=== PATIENT | male | born 1940 | race Caucasian/White ===

== ENCOUNTER → 2024-02-13 09:21 | Outpatient (REF) | payer MEDICARE, SELFPAY ==
--- NOTE | 2024-02-13 10:10 | CARDSERVLU ---
Echocardiogram with Lumason completed after protocol screening completed. Allergies verified.
Patent IV site: _new start 20 P 1st attempt LAC____
IV site flushed with 0.9% NaCl pre and post administration.
Diluted bolus method utilized to enhance visualization of ventricular guevara.
Total volume given: __4.5__ mL
Patient tolerated all procedures well without complications.
site removed at completion of testing.
== END ==
LOC: RCS 09:21
PROVIDERS: ATTENDING PHYSICIAN Internal Medicine Cardiovascular Disease; FAMILY PHYSICIAN Nurse Practitioner Adult Health
DX: I50.22 Chronic systolic (congestive) heart failure (principal); Z95.810 Presence of automatic (implantable) cardiac defibrillator
CPT/HCPCS: 93306; Q9950

== ENCOUNTER 2024-06-03 12:34 | Emergency (ER) | payer MEDICARE, SELFPAY ==
[2024-06-03 12:36] VITALS: BP 107/65
[2024-06-03 13:13] LABS: % Basophils 0.4 % (0-2); % Eosinophils 0.1 % (0-6); % Immature Granulocytes 0.5 % (0-0.5); % Lymphocytes 10.7 % (20.5-51.1); % Monocytes 7.3 % (1.7-9.3); Absolute Basophils 0.1 10^3/uL (0-0.2); Absolute Immature Granulocytes 0.1 10^3/uL (0-0.05); Absolute Lymphocytes 1.5 10^3/uL (1.2-3.4); Absolute Neutrophils 11.1 10^3/uL (1.4-6.5); Hematocrit 40.2 % (39.0-52.0); Hemoglobin 14.4 g/dL (13.0-18.0); Mean Corp Hgb Conc. 35.8 g/dL (33.0-37.0); Mean Corpuscular Hgb 32.7 pg (27.0-31.0); Mean Corpuscular Volume 91.4 fL (80.0-94.0); Mean Platelet Volume 9.7 fL (7.4-10.4); Nucleated Red Blood Cells % 0 % (-); Platelet Count 241 10^3/uL (130-400); Red Cell Dist. Width 13.8 % (11.5-14.5); White Blood Cell Count 13.7 10^3/uL (4.8-10.8)
[2024-06-03 13:24] LABS: ALT (SGPT) 42 U/L (0-50); AST (SGOT) 114 U/L (17-59); Albumin 4.7 g/dl (3.5-5.0); Alkaline Phosphatase 62 U/L (38-126); Blood Urea Nitrogen 31 mg/dl (9-20); Calcium 9.9 mg/dl (8.4-10.2); Carbon Dioxide 20 mmol/L (22-30); Chloride 104 mmol/L (98-107); Glucose 197 mg/dl (70-99); Potassium 4.3 mmol/L (3.5-5.1); Sodium 138 mmol/L (135-145); Total Bilirubin 1.2 mg/dl (0.2-1.3); Total Protein 7.4 g/dl (6.3-8.2); eGFR > 60.00
--- NOTE | 2024-06-03 14:29 | ED.GENMED ---
History of Present Illness
General
Chief Complaint: Fall
Time Seen by Provider: 06/03/24 14:10
History of Present Illness
History of Present Illness:
83 yo male presents to the Emergency Department with his daughters for evaluation of gait instability ongoing for the past several weeks, with multiple falls in the past 2 days. Yesterday was down for >8 hours before family was able to help him.
Lives alone. Denies complaints otherwise.
Past History
Past History
ED Past Medical History: CAD, Cancer (Skin CA), CHF, HTN, Hypercholesterolemia, NIDDM and Other (LBBB)
ED Past Surgical History: Appendectomy, Cardiac (BIVICD, STENT) and Other (Hernia repair, Catarats)
Social History
Tobacco: Non-smoker
Alcohol: Occasional
Personal:
Living: alone
Review of Systems
Review of Systems
Allergies reviewed?: Yes
All Other Systems: ROS reviewed and negative except as documented in HPI and ROS
Phy Exam
Physical Exam
Physical Exam:
GEN: Well appearing, NAD, WDWN
HEENT: Oral mucosa moist, no scleral icterus, no nasal congestion
Cardiac: Regular rate
Lung: No respiratory distress, no tachypnea
MSK: No gross deformity or injuries
Skin: Good color, no pallor or jaundice, pressure injuries to L knee and R medial knee
Neuro: AO x3; CN II-XII grossly intact. BUE strength 5/5 in all valencia, sensation intact and symmetric. BLE strength 5/5 in all valencia, sensation intact and symmetric. Ataxia to LUE and LLE. Abnormal gait with rigid LLE
Psych: Calm, cooperative
Course
Orders/Labs/Results
Orders:
Orders
06/03/24 12:40
Urinalysis Reflex To Culture Urgent
Date Specimen was Collected: 06/03/24
Time Specimen was Collected: 12:40
06/03/24 12:46
EKG [Electrocardiogram (*1)] Urgent
Reason for Study: Other
Other Reason for Exam: Frequent Falls, Gait dysfunction
EKG- Treatment ONCE
06/03/24 12:52
Complete Blood Count/With Diff Urgent
Comprehensive Metabolic Panel Urgent
Creatine Phosphokinase Urgent
Comment: ADD ON
06/03/24 14:18
Add On- LAB Urgent
Tests Added?: CPK
06/03/24 14:29
CT Head W/o Iv Contrast Urgent
Comment:
Reason For Exam: gait instability/L sided weakness
06/03/24 14:54
0.9% Sodium Chloride 1000 ml [Nss] 1,000 ml IV BOLUS
06/03/24 15:50
Acetaminophen 1000MG/100Ml [Ofirmev] 1,000 mg in 100 ml IV ONCE
Acetaminophen IV Indication:: ED Narcotic Naive Pt-ONCE
Dexamethasone Sod Phosphate [Decadron] 4 mg IV NOW STA
Levetiracetam Injectable [Keppra] 500 mg IV NOW STA
06/03/24 16:53
CR Foot - Left Min 3 Views Urgent
Comment:
Reason For Exam: fall
CR Shoulder, Trauma - Left Urgent
Reason For Exam: fall
Abnormal Lab Results
06/03/24
12:52
WBC 13.7 H 10^3/uL
(4.8-10.8)
RBC 4.40 L 10^6/uL
(4.70-6.10)
MCH 32.7 H pg
(27.0-31.0)
Abs Immat Gran (auto) 0.1 H 10^3/uL
(0-0.05)
Absolute Neuts (auto) 11.1 H 10^3/uL
(1.4-6.5)
Absolute Monos (auto) 1.0 H 10^3/uL
(0.1-0.6)
Neutrophils % 81.0 H %
(42.2-75.2)
Lymphocytes % 10.7 L %
(20.5-51.1)
Carbon Dioxide 20 L mmol/L
(22-30)
BUN 31 H mg/dl
(9-20)
Glucose 197 H mg/dl
(70-99)
AST 114 H U/L
(17-59)
Creatine Kinase 4078 H U/L
(55-170)
06/03/24 12:52
06/03/24 12:52
Vital Signs
Initial and Last Documented VS:
Initial Vital Signs
Temp Pulse Resp BP Pulse Ox
97.5 F 86 18 107/65 91
06/03/24 12:36 06/03/24 12:36 06/03/24 12:36 06/03/24 12:36 06/03/24 12:36
Last Documented Vital Signs
Temp Pulse Resp BP Pulse Ox
97.5 F 85 19 112/59 97
06/03/24 12:36 06/03/24 17:29 06/03/24 17:29 06/03/24 17:30 06/03/24 16:00
MDM/Problems Addressed
MDM/Problems Addressed:
Imaging obtained due to the patient's abnormal neurologic exam finding evidence for a likely hemorrhagic brain mass. I discussed the case with neurosurgery at the [facility] who will accept the patient as a transfer to the
neurointensive care unit. Given IV steroids and antiepileptic drugs, BP remained quite stable in the ED.
*Critical Care Note
Total Time (30-74mins, 75-104mins- exclusive of procedures): 60 minutes
comment:
Critical care time: 60 minutes
Critical care time was exclusive of: Separately billable procedures, treating other patients, and teaching time
Critical care was necessary to treat or prevent imminent or life-threatening deterioration of the following conditions: Hemorrhagic brain mass
Critical care time spent personally by me on the following activities:
[x] Review of old charts
[x] Obtaining history from patient or surrogate
[x] Ordering and review of the laboratory studies
[x] Ordering and review of radiographic studies
[x] Ordering and performing treatments and interventions
[x] Patient patient's response to treatment
[x] Development of treatment plan with patient or surrogate
ED Attending Note
-
Portions of this chart may have been created with voice recognition software.� Occasional wrong word or��sound alike� substitutions may have occurred due to the inherent limitations of voice recognition software.
Discharge Plan
Departure
Patient Disposition: Acute Care Hospital
Date of Disposition: 06/03/24
Time of Disposition: 15:37
Discharge Problem:
Brain bleed
Prescriptions:
No Action
losartan 50 MG tablet
100 mg PO DAILY
spironolactone 12.5 MG tablet
12.5 mg PO DAILY
glimepiride 2 MG tablet
4 mg PO BID
omeprazole magnesium [Prilosec OTC] 20 MG tablet,delayed release (DR/EC)
20 mg PO DAILY
atorvastatin 40 MG tablet
80 mg PO HS
metformin 1,000 MG tablet
1,000 mg PO BID
Altai Balance
1 tab PO DAILY
Artho-Hmp
1 tab PO DAILY
carvedilol 12.5 MG tablet
12.5 mg PO BID
amlodipine 5 MG tablet
7.5 mg PO DAILY
Primatene Asthma 1 TAB tablet
1 tab PO PRN PRN (Reason: asthma)
fluticasone propionate 1 SPRAY spray,suspension
1 spray intranasal DAILY
chromium picolinate 400 MCG tablet
800 mcg PO DAILY
turmeric root extract 500 MG capsule
1,000 mg PO DAILY
cinnamon bark-chromium picolin 1 EACH capsule
1 - 2 ea PO BID
Trulicity 0.75 MG/0.5 ML pen injector
0.5 mg SQ WEEKLY
Balance Of Nature Fruit Veggie
3 tab PO DAILY
Berberine Gluco
1 - 2 tab PO BID
Blood Boost Formula
1 tab PO DAILY
Glucose Stabili-T
1 tab PO TID
Wayne Q Plus
2 tablets PO QPM
Referrals:
Lux Elliott CRNP [Family Provider] -
Hospital Transfer
Other hospital: [facility]
I certify that the patient requires transfer: Yes
Discussed case with accepting physician: Sana
Reason for transfer: higher level of care
Interventions
Interventions:
*Risk Screen - Suicide Last Done: 06/03/24 12:36
*General Assessment Last Done: 06/03/24 12:36
*Neglect/Abuse Screening Last Done: 06/03/24 12:36
ED- Fall Risk Assessment Last Done: 06/03/24 14:16
*ED COVID-19 Vaccine History Last Done: 06/03/24 17:44
*Nursing Disposition Last Done: 06/03/24 17:44
ED- Neurological Assessment Last Done: 06/03/24 16:11
ED-Skin Assessment Last Done: 06/03/24 14:16
Discharge Date and Time
Discharge Date/Time: 06/03/24 17:45
Print Language: DANISH
[2024-06-03 14:43] LABS: Creatine Phosphokinase 4078 U/L (55-170)
[2024-06-03] MEDS: NSS 1000 IV (15:37)
[2024-06-03 15:38] VITALS: BMI 25.9
[2024-06-03] MEDS: DECADRON 4 MG IV (15:57)
[2024-06-03] MEDS: OFIRMEV 100 IV (15:58)
[2024-06-03] MEDS: KEPPRA 500 MG IV (15:58)
[2024-06-03 16:00] VITALS: BP 132/86
[2024-06-03 16:36] VITALS: BP 125/71
[2024-06-03 17:00] VITALS: BP 112/76
[2024-06-03 17:30] VITALS: BP 112/59
== END 2024-06-03 17:45 | disposition short-term general hospital (02) ==
LOC: EMR 12:34
PROVIDERS: Emergency Medicine; EMERGENCY PHYSICIAN Emergency Medicine; FAMILY PHYSICIAN Nurse Practitioner Adult Health
DX: S06.300A Unspecified focal traumatic brain injury without loss of consciousness, initial encounter (principal); G93.89 Other specified disorders of brain; R26.89 Other abnormalities of gait and mobility; R53.1 Weakness; W19.XXXA Unspecified fall, initial encounter; I11.0 Hypertensive heart disease with heart failure; I50.9 Heart failure, unspecified; I25.10 Atherosclerotic heart disease of native coronary artery without angina pectoris; E11.9 Type 2 diabetes mellitus without complications; I44.7 Left bundle-branch block, unspecified; E78.00 Pure hypercholesterolemia, unspecified; Z85.828 Personal history of other malignant neoplasm of skin; R29.6 Repeated falls; Z95.5 Presence of coronary angioplasty implant and graft; Z95.810 Presence of automatic (implantable) cardiac defibrillator; Z88.8 Allergy status to other drugs, medicaments and biological substances
CPT/HCPCS: 99291; 96374; 96375 ×2; 96361; 70450; 73030; 73630; 80053; 82550; 85025; 93005

== ENCOUNTER → 2024-07-17 08:36 | Outpatient (REF) | payer OTHER, SELFPAY | LOC: RAD 08:36 | PROVIDERS: ATTENDING PHYSICIAN Nurse Practitioner Adult Health | DX: I63.9 Cerebral infarction, unspecified (principal) | CPT/HCPCS: 93880 ==

== ENCOUNTER 2024-08-01 11:06 | Outpatient (RCR) | payer OTHER, SELFPAY | END 2024-08-01 23:59 | disposition home or self-care (01) | LOC: RST 11:06 | PROVIDERS: ATTENDING PHYSICIAN Physical Medicine & Rehabilitation | DX: C71.0 Malignant neoplasm of cerebrum, except lobes and ventricles (principal); Z73.6 Limitation of activities due to disability; R26.89 Other abnormalities of gait and mobility; R26.81 Unsteadiness on feet; M62.81 Muscle weakness (generalized); M25.511 Pain in right shoulder; Z98.890 Other specified postprocedural states; R29.6 Repeated falls | CPT/HCPCS: 96125; 97110; 97112; 97129; 97130; 97163; 97167; 97530; 97535 ==

== ENCOUNTER → 2024-08-13 11:14 | Outpatient (REF) | payer OTHER, SELFPAY | LOC: RAD 11:14 | PROVIDERS: ATTENDING PHYSICIAN Specialist; FAMILY PHYSICIAN Nurse Practitioner Adult Health | DX: Z85.9 Personal history of malignant neoplasm, unspecified (principal); N28.1 Cyst of kidney, acquired | CPT/HCPCS: 74178; Q9967 ==

== ENCOUNTER 2024-08-14 09:44 | Outpatient (RCR) | payer OTHER, SELFPAY | END 2024-08-14 23:59 | disposition home or self-care (01) | LOC: RST 09:44 | PROVIDERS: ATTENDING PHYSICIAN Physical Medicine & Rehabilitation | DX: C71.0 Malignant neoplasm of cerebrum, except lobes and ventricles (principal); Z73.6 Limitation of activities due to disability; R26.89 Other abnormalities of gait and mobility; R26.81 Unsteadiness on feet; M62.81 Muscle weakness (generalized); M25.511 Pain in right shoulder; R41.844 Frontal lobe and executive function deficit; R41.840 Attention and concentration deficit; R41.841 Cognitive communication deficit; Z98.890 Other specified postprocedural states; R29.6 Repeated falls | CPT/HCPCS: 97110; 97112; 97116; 97129; 97130; 97530; 97535 ==

== ENCOUNTER 2024-08-18 11:40 | Emergency (ER) | payer OTHER, SELFPAY ==
[2024-08-18] VITALS (10 sets, daily range): BP systolic 126–148; BP diastolic 74–99
--- NOTE | 2024-08-18 11:43 | ED.GENMED ---
History of Present Illness
General
Chief Complaint: Change in Mental Status
Time Seen by Provider: 08/18/24 11:43
History of Present Illness
History of Present Illness:
TIME OF INITIAL ENCOUNTER: 11:45 AM
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 He was seen here with an intracranial hemorrhage from a metastatic lesion this past May and was transferred to [place] where he had brain surgery. This
week he had been doing fairly well but yesterday daughter noticed a little bit of a change. Today his mental status has dramatically worsened. He is taking much longer to answer any questions. I spoke to the ex- at bedside who had been
speaking to the neurosurgeon at [place].
EXAM:
GENERAL: The patient is somewhat ill in appearance
HEENT: Moist oral mucosa
CARDIOVASCULAR: No murmurs, normal heart rate, regular rhythm, No chest wall tenderness
PULMONARY: No respiratory distress, breath sounds are clear and equal
ABDOMEN: Soft with no peritoneal signs, no tenderness
NEUROLOGIC: The patient has trouble following simple commands, he could not name the month, he cannot tell me his age, his strength is decreased equally in all extremities
PSYCHIATRIC: Limited insight and judgement
EXTREMITIES: Nontender, no edema, moves all extremities equally
SKIN: No rash, no lesions
NUMBER AND COMPLEXITY OF PROBLEMS ADDRESSED AT THE ENCOUNTER
� Chronic conditions affecting care: Cardiomyopathy/CHF, CAD, high blood pressure, hyperlipidemia, IDDM
� Acute Exacerbation and/or Progression of Chronic Illness: This is an acute problem
� Differential Diagnosis includes: Hemorrhagic metastatic disease, subdural hematoma, infectious etiology, seizure
AMOUNT AND/OR COMPLEXITY OF DATA TO BE REVIEWED AND ANALYZED
� I performed an independent evaluation of and my interpretation is:
EKG: V paced 100
CT: Right parietal mass slightly larger than prior, there are mixed bilateral density subdural hematomas which appear new in comparison to CT from last May
X-rays:
Laboratory Studies: White count 20.7, hemoglobin 11.6, sodium normal, BUN 28, creatinine 0.8, calcium 10.4, glucose 101
Other:
� Review of other/old records: I reviewed records. The patient was seen here 06/03/2024 and at that time had been having unstable gait and had been falling. The patient was found to have a hemorrhagic brain mass that day and
was transferred to [place]. Ex- showed me on her phone that an MRI from yesterday showed new dural based enhancing metastatic lesions with local mass effect. There had been decreased in size from 10 mm to 5 mm of the right-sided subdural hematoma.
� Clinical information was obtained by an independent historian: Ex- at bedside
� Prescriptions/Medications Considered but not given:
� Further testing considered but not performed:
RISK OF COMPLICATIONS AND/OR MORBIDITY OR MORTALITY OF PATIENT MANAGEMENT
� Social determinants of health affecting care: Lives at home
� Discussion with other providers: I spoke to Dr. Del Real neurosurgeon at [place] who accepts to his service to [facility].
� Escalation of care including admission/observation vs risk of discharge considered: The patient was seen upon arrival and sent for CT nearly immediately. The patient was given Decadron and Keppra. While in the ED, the patient
had a brief run of wide-complex tachycardia. The patient does have an underlying pacemaker and does have a left bundle branch block history. This wide-complex tachycardia may be an underlying left bundle branch block as opposed to VT. He has
otherwise remained hemodynamically stable.
ANY OTHER UPDATES:
1:20 PM: I spoke to son-in-law who states the patient has not been taking Decadron nor antiepileptic drug recently.
2:20 PM: The patient had a second episode of wide-complex tachycardia which is more sustained. Will add amiodarone for the possibility of VT. His neurologic symptoms were present before the wide-complex tachycardia and the wide-complex tachycardia
does not appear to be responsible for his clinical condition.
3:10 PM: The patient is currently in a demand V paced rhythm
Past History
Past History
ED Past Medical History: CAD, Cancer (Skin CA), CHF, HTN, Hypercholesterolemia, NIDDM and Other (LBBB)
ED Past Surgical History: Appendectomy, Cardiac (BIVICD, STENT) and Other (Hernia repair, Catarats)
Social History
Tobacco: Non-smoker
Alcohol: Occasional
Personal:
Living: alone
Phy Exam
Physical Exam
Physical Exam:
See HPI
Scores
NIH Stroke Score
Level of Consciousness: 0 - Alert
LOC Questions: 2-Neither correct
LOC Commands: 2-Performs neither correctly
Best Horizontal Gaze: 0-Normal
Visual Quintana: 0=Normal, no visual loss
Facial Palsy: 0=Normal, symmetrical
Motor - Right Arm: 0=No drift 10 seconds
Motor - Left Arm: 0=No drift 10 seconds
Motor - Right Le-No drift 5 seconds
Motor - Left Le-No drift 5 seconds
Limb Ataxia: 0-Absent
Sensation: 0-Normal
Best Language: 2-Severe aphasia
Dysarthria: 1-Mild slurring
Extinction and Inattention: 0-No abnormality
Total Score:: 7
Course
Orders/Labs/Results
Orders:
Orders
08/18/24 11:49
CT Head W/o Iv Contrast Urgent
Comment:
Reason For Exam: weakness; h/o brain mass
08/18/24 12:21
Complete Blood Count/With Diff Urgent
Comprehensive Metabolic Panel Urgent
08/18/24 12:22
Levetiracetam Injectable [Keppra] 1,000 mg IV NOW STA
08/18/24 12:24
Dexamethasone Sod Phosphate [Decadron] 10 mg IV NOW STA
08/18/24 13:04
Acetaminophen 1000MG/100Ml [Ofirmev] 1,000 mg in 100 ml .ROUTE .STK-MED
Acetaminophen 1000MG/100Ml [Ofirmev] 1,000 mg in 100 ml IV ONCE
Acetaminophen IV Indication:: No VT & No Enteral Access
08/18/24 13:43
Electrocardiogram (*1) Urgent
Reason for Study: Palpitations
EKG- Treatment ONCE
08/18/24 14:22
Amiodarone [Cordarone] 150 mg Dextrose 5%/Water 100 ml [D5w] 100 ml IV NOW
08/18/24 14:23
Amiodarone [Cordarone] 150 mg .ROUTE .STK-MED ONE
08/18/24 14:45
Amiodarone [Cordarone] 900 mg DEXTROSE 5% PVC-free BAG [D5W PVC-free BAG] 500 ml IV PER PROTOCOL
Initial Dose in mg/min:: 1
Duration of initial dose (hours):: 6
Subsequent dose in mg/min:: 0.5
Duration of subsequent dose (hours):: 18
Maximum dose in mg/min:: 1
Hold and notify provider if:: Heart rate < 60 BPM or SBP < 90 mmHg or MAP < 60 mmHg
08/18/24 15:12
Lidocaine 2% [Lidocaine Uro-Jet 2%] 1 syringe .ROUTE .STK-MED ONE
Abnormal Lab Results
08/18/24
12:21
WBC 20.7 H 10^3/uL
(4.8-10.8)
RBC 3.70 L 10^6/uL
(4.70-6.10)
Hgb 11.6 L g/dL
(13.0-18.0)
Hct 34.0 L %
(39.0-52.0)
MCH 31.4 H pg
(27.0-31.0)
RDW 15.1 H %
(11.5-14.5)
Abs Immat Gran (auto) 0.2 H 10^3/uL
(0-0.05)
Absolute Neuts (auto) 17.4 H 10^3/uL
(1.4-6.5)
Absolute Monos (auto) 1.0 H 10^3/uL
(0.1-0.6)
Immature Gran % 0.8 H %
(0-0.5)
Neutrophils % 84.0 H %
(42.2-75.2)
Lymphocytes % 9.2 L %
(20.5-51.1)
BUN 28 H mg/dl
(9-20)
Glucose 101 H mg/dl
(70-99)
Calcium 10.4 H mg/dl
(8.4-10.2)
08/18/24 12:21
08/18/24 12:21
Vital Signs
Initial and Last Documented VS:
Initial Vital Signs
BP
130/90
08/18/24 11:51
Last Documented Vital Signs
Temp Pulse Resp BP Pulse Ox
36.8 C 101 19 126/80 93
08/18/24 11:52 08/18/24 15:30 08/18/24 15:30 08/18/24 15:30 08/18/24 15:24
*Critical Care Note
Total Time (30-74mins, 75-104mins- exclusive of procedures): 45min
comment:
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 Rather significant change in mental status per family. I emergently discussed case with Dr. Gt Gaines who accepts to his service. I also gave Keppra and Decadron. Neurologic status was
closely monitored.
ED Attending Note
-
Portions of this chart may have been created with voice recognition software.� Occasional wrong word or��sound alike� substitutions may have occurred due to the inherent limitations of voice recognition software.
Discharge Plan
Departure
Patient Disposition: Acute Care Hospital
Date of Disposition: 08/18/24
Time of Disposition: 12:38
Discharge Problem:
Metastasis to brain
Prescriptions:
No Action
fluticasone propionate 1 SPRAY spray,suspension
2 spray intranasal DAILY
amlodipine 5 mg Tablet
7.5 mg PO DAILY
spironolactone 25 mg Tablet
12.5 mg PO DAILY
Rx Instructions:
on hold
glimepiride 4 mg Tablet
4 mg PO BID
losartan 100 mg Tablet
100 mg PO DAILY
Rx Instructions:
on hold
dulaglutide 1.5 mg/0.5 mL Pen Injector
1.5 mg SC QWEEK
trazodone 50 mg tablet
50 mg PO HS
Januvia 100 mg tablet
25 mg PO DAILY
acetaminophen [Tylenol] 325 mg Tablet
650 mg PO Q4H PRN (Reason: headache)
docusate sodium 100 mg Capsule
100 mg PO BID 30 Days Qty: 60 0RF
dapagliflozin propanediol 10 mg Tablet
10 mg PO DAILY 30 Days Qty: 30 0RF
metformin 1,000 mg Tablet
1,000 mg PO BID@0800,1700 30 Days Qty: 60 0RF
insulin glargine [Lantus Solostar U-100 Insulin] 100 unit/mL (3 mL) insulin pen
5 unit SC DAILY 30 Days Qty: 1.5 0RF
(DME) pen needle, diabetic 31 gauge x 1/3' needle
See Rx Instructions .Route Qty: 100 0RF
Rx Instructions:
As directed
dexamethasone 2 mg Tablet
2 mg PO Q12 30 Days Qty: 60 0RF
sodium chloride 1,000 mg Tablet,Soluble
1,000 mg PO DAILY 30 Days Qty: 30 0RF
melatonin 5 mg Tablet
10 mg PO HS 30 Days Qty: 60 0RF
multivitamin with folic acid [Tab-A-Sulma] 400 mcg Tablet
1 tab PO DAILY 30 Days Qty: 30 0RF
omeprazole magnesium [Prilosec OTC] 20 MG tablet,delayed release (DR/EC)
20 mg PO DAILY Qty: 0 0RF
atorvastatin 40 MG tablet
80 mg PO HS 30 Days Qty: 30 0RF
carvedilol 12.5 MG tablet
12.5 mg PO BID 30 Days Qty: 60 0RF
Rx Instructions:
restart when sbp is over 120
Hospital Transfer
Other hospital: [facility]
I certify that the patient requires transfer: Yes
Discussed case with accepting physician: Neurosurgeon
Reason for transfer: availability of service
Interventions
Interventions:
*ED- Fall Risk Assessment Last Done: 08/18/24 12:11
*ED COVID-19 Vaccine History Last Done: 08/18/24 12:10
*Nursing Disposition Last Done: 08/18/24 15:48
ED- Pulmonary Assessment Last Done: 08/18/24 12:12
ED- Neurological Assessment Last Done: 08/18/24 12:12
ED- Cardiac Assessment Last Done: 08/18/24 12:12
ED Swallowing Screen Last Done: 08/18/24 13:09
Discharge Date and Time
Discharge Date/Time: 08/18/24 15:50
Print Language: MARTINIQUAIS
[2024-08-18] MEDS: DECADRON 10 MG IV (12:28)
[2024-08-18] MEDS: KEPPRA 1000 MG IV (12:33)
[2024-08-18 12:43] LABS: % Basophils 0.4 % (0-2); % Eosinophils 0.6 % (0-6); % Immature Granulocytes 0.8 % (0-0.5); % Lymphocytes 9.2 % (20.5-51.1); Absolute Basophils 0.1 10^3/uL (0-0.2); Absolute Eosinophils 0.1 10^3/uL (0-0.7); Absolute Immature Granulocytes 0.2 10^3/uL (0-0.05); Absolute Lymphocytes 1.9 10^3/uL (1.2-3.4); Absolute Neutrophils 17.4 10^3/uL (1.4-6.5); Hemoglobin 11.6 g/dL (13.0-18.0); Mean Corp Hgb Conc. 34.1 g/dL (33.0-37.0); Mean Corpuscular Hgb 31.4 pg (27.0-31.0); Mean Corpuscular Volume 91.9 fL (80.0-94.0); Mean Platelet Volume 9.7 fL (7.4-10.4); Nucleated Red Blood Cells % 0 % (-); Platelet Count 309 10^3/uL (130-400); Red Cell Dist. Width 15.1 % (11.5-14.5); White Blood Cell Count 20.7 10^3/uL (4.8-10.8)
[2024-08-18 12:49] LABS: ALT (SGPT) 20 U/L (0-50); AST (SGOT) 19 U/L (17-59); Albumin 3.7 g/dl (3.5-5.0); Alkaline Phosphatase 101 U/L (38-126); Blood Urea Nitrogen 28 mg/dl (9-20); Calcium 10.4 mg/dl (8.4-10.2); Carbon Dioxide 27 mmol/L (22-30); Chloride 101 mmol/L (98-107); Glucose 101 mg/dl (70-99); Potassium 3.8 mmol/L (3.5-5.1); Sodium 138 mmol/L (135-145); Total Bilirubin 0.7 mg/dl (0.2-1.3); Total Protein 6.6 g/dl (6.3-8.2); eGFR > 60.00
[2024-08-18] MEDS: OFIRMEV 100 IV (13:07)
[2024-08-18] MEDS: CORDARONE 103 MG IV (14:25)
[2024-08-18] MEDS: CORDARONE 518 MG IV (14:51)
== END 2024-08-18 15:50 | disposition short-term general hospital (02) ==
LOC: EMR 11:40
PROVIDERS: EMERGENCY PHYSICIAN Emergency Medicine; FAMILY PHYSICIAN Nurse Practitioner Adult Health
DX: R47.01 Aphasia (principal); C64.9 Malignant neoplasm of unspecified kidney, except renal pelvis; C79.31 Secondary malignant neoplasm of brain; R00.0 Tachycardia, unspecified; I25.10 Atherosclerotic heart disease of native coronary artery without angina pectoris; E78.00 Pure hypercholesterolemia, unspecified; I11.0 Hypertensive heart disease with heart failure; I50.9 Heart failure, unspecified; E11.9 Type 2 diabetes mellitus without complications; I44.7 Left bundle-branch block, unspecified; Z95.5 Presence of coronary angioplasty implant and graft; Z88.8 Allergy status to other drugs, medicaments and biological substances
CPT/HCPCS: 99285; 96365; 51798; 51701; 70450; 80053; 85025; 93005

== ENCOUNTER 2024-09-19 22:14 | Inpatient (IN) | payer OTHER, SELFPAY ==
[2024-09-19] VITALS (7 sets, daily range): BP systolic 95–124; BP diastolic 61–82
[2024-09-19 17:18] LABS: Glucose - Point of Care 221 mg/dl (70-99)
[2024-09-19 17:37] LABS: ALT (SGPT) 24 U/L (0-50); AST (SGOT) 24 U/L (17-59); Albumin 3.1 g/dl (3.5-5.0); Alkaline Phosphatase 132 U/L (38-126); Blood Urea Nitrogen 23 mg/dl (9-20); Calcium 11.4 mg/dl (8.4-10.2); Carbon Dioxide 25 mmol/L (22-30); Chloride 102 mmol/L (98-107); Glucose 221 mg/dl (70-99); Potassium 4.6 mmol/L (3.5-5.1); Sodium 136 mmol/L (135-145); Total Bilirubin 0.5 mg/dl (0.2-1.3); Total Protein 5.7 g/dl (6.3-8.2); eGFR > 60.00
[2024-09-19 17:45] LABS: % Basophils 0.1 % (0-2); % Eosinophils 0.5 % (0-6); % Immature Granulocytes 3.3 % (0-0.5); % Lymphocytes 5.9 % (20.5-51.1); % Monocytes 3.7 % (1.7-9.3); % Neutrophils 86.5 % (42.2-75.2); Absolute Eosinophils 0.2 10^3/uL (0-0.7); Absolute Immature Granulocytes 1.1 10^3/uL (0-0.05); Absolute Lymphocytes 1.9 10^3/uL (1.2-3.4); Absolute Monocytes 1.2 10^3/uL (0.1-0.6); Hemoglobin 13.5 g/dL (13.0-18.0); Mean Corp Hgb Conc. 34.6 g/dL (33.0-37.0); Mean Corpuscular Hgb 32.5 pg (27.0-31.0); Mean Corpuscular Volume 93.8 fL (80.0-94.0); Mean Platelet Volume 9.1 fL (7.4-10.4); Nucleated Red Blood Cells % 0.1 % (-); Platelet Count 182 10^3/uL (130-400); Red Blood Cell Count 4.16 10^6/uL (4.70-6.10); Red Cell Dist. Width 19.8 % (11.5-14.5); White Blood Cell Count 32.3 10^3/uL (4.8-10.8)
--- NOTE | 2024-09-19 17:45 | ED.GENMED ---
History of Present Illness
General
Chief Complaint: Change in Mental Status
Source: patient and family
Exam Limitations: clinical condition and altered mental status
Time Seen by Provider: 09/19/24 17:22
History of Present Illness
History of Present Illness:
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
possibly showed pneumonia EMS was called due to pulse ox in the mid 80s placed on oxygen blood sugar in the 40s treated with dextrose my evaluation but tachypneic, confused
Past History
Past History
ED Past Medical History: CAD, Cancer (Skin CA), CHF, HTN, Hypercholesterolemia, NIDDM and Other (LBBB)
ED Past Surgical History: Appendectomy, Cardiac (BIVICD, STENT) and Other (Hernia repair, Catarats)
Social History
Tobacco: Non-smoker
Alcohol: Occasional
Drug: None
Personal:
Living: alone
Employment: Retired
Review of Systems
Review of Systems
Unable to obtain full review of systems at this time due to: due to acuity
Other source history: family
All Other Systems: Not applicable
Phy Exam
Physical Exam
Physical Exam:
Physical Exam
General: Lethargic ill-appearing man
Neck: No jaundice pupils 2 mm
Heart: s1/s2 regular rate and rhythm, no murmur. equal radial pulses.
Lungs: Rhonchi bilateral
Abdomen: Nontender
Neuro: Lethargic minimal response to painful stim
Skin: no rash
Psychiatric: Unable to assess
Extremities: no edema.
Course
Orders/Labs/Results
Orders:
Orders
09/19/24 17:09
EKG [Electrocardiogram (*1)] Urgent
Reason for Study: Fatigue / Weakness
EKG- Treatment ONCE
09/19/24 17:14
COVID-19 Antigen Urgent
Source: Nasal Swab
Complete Blood Count/With Diff Urgent
Comprehensive Metabolic Panel Urgent
INF RAPID [Influenza A+B Rapid Molecular] Urgent
NADIA Source: Nasal Swab
Specimen Description:
09/19/24 17:42
CT Head W/o Iv Contrast Urgent
Comment:
Reason For Exam: coma brain mets
Ipratropium/Albuterol Sulfate [Duoneb] 3 ml INH R NOW STA
09/19/24 17:43
CR Chest Portable - 1 View Urgent
Comment:
Reason For Exam: sob
Reason Study Needs to be Portable: Patient Unstable
09/19/24 17:56
ABG [Arterial Blood Gas] Urgent
%Oxygen/Room Air: 4
09/19/24 18:19
CT Chest PE Study Urgent
Comment:
Reason For Exam: sob
09/19/24 19:59
Cefepime HCl [Maxipime] 2,000 mg IV NOW STA
09/19/24 20:06
Sterile Water [Sterile Water For Injection] 10 ml .ROUTE .STK-MED ONE
09/19/24 20:09
0.9% Sodium Chloride 1000 ml [Nss] 1,000 ml IV BOLUS
Abnormal Lab Results
09/19/24 09/19/24 09/19/24
17:14 17:17 17:56
WBC 32.3 H 10^3/uL
(4.8-10.8)
RBC 4.16 L 10^6/uL
(4.70-6.10)
MCH 32.5 H pg
(27.0-31.0)
RDW 19.8 H %
(11.5-14.5)
Abs Immat Gran (auto) 1.1 H 10^3/uL
(0-0.05)
Absolute Neuts (auto) 28.0 H 10^3/uL
(1.4-6.5)
Absolute Monos (auto) 1.2 H 10^3/uL
(0.1-0.6)
Immature Gran % 3.3 H %
(0-0.5)
Neutrophils % 86.5 H %
(42.2-75.2)
Lymphocytes % 5.9 L %
(20.5-51.1)
pH 7.53 H
(7.35-7.45)
pCO2 33 L mmHg
(35-48)
pO2 64 L mmHg
(83-108)
ABG O2 Sat (Measured) 93.4 L %
(94-98)
BUN 23 H mg/dl
(9-20)
Glucose 221 H mg/dl
(70-99)
Calcium 11.4 H mg/dl
(8.4-10.2)
Alkaline Phosphatase 132 H U/L
(38-126)
Total Protein 5.7 L g/dl
(6.3-8.2)
Albumin 3.1 L g/dl
(3.5-5.0)
POC Glucose 221 H mg/dl
(70-99)
09/19/24 17:14
09/19/24 17:14
Vital Signs
Initial and Last Documented VS:
Initial Vital Signs
Pulse Resp Pulse Ox
82 22 88
09/19/24 17:09 09/19/24 17:09 09/19/24 17:09
Last Documented Vital Signs
Temp Pulse Resp BP Pulse Ox
98.8 F 85 22 124/82 90
09/19/24 17:10 09/19/24 17:16 09/19/24 17:09 09/19/24 17:12 09/19/24 17:27
MDM/Problems Addressed
Differential Diagnosis Includes:
Hypercarbia pneumonia COPD brain mets seizure electrolyte abnormality toxic metabolic
MDM/Problems Addressed:
Confusion hypoxia
Chronic conditions affecting care: DM and Cancer
Acute Exacerbation and/or Progression of Chronic Illness: DM and Cancer
*Radiology
Radiology exam reviewed: preliminary read by ED provider
*Pulse Oximetry
Patient hypoxic: yes
*EKG
Interpreted by ED Provider?: Yes
Interpretation: abnormal
Comparison EKG: no comparison EKG present
Heart Rate: 70
Rate: normal
Rhythm: ventricular paced
Ischemia: non-specific ST changes
*Rectangular [employer] Interpretation
Rate: normal
Interpretation: normal
Heart Rate: 78
Rhythm: ventricular paced
*Critical Care Note
Total Time (30-74mins, 75-104mins- exclusive of procedures): 32
Update Note
Update Note:
Update CT noted antibiotics ordered ABG noted reviewed with family, asked them to think about his goals of care,
ED Attending Note
-
Portions of this chart may have been created with voice recognition software.� Occasional wrong word or��sound alike� substitutions may have occurred due to the inherent limitations of voice recognition software.
Discharge Plan
Departure
Patient Disposition: Admit
Date of Disposition: 09/19/24
Time of Disposition: 20:10
Admit to: Telemetry
Presentation/result/management discussed w/ accepting MD/DO: Hospitalist
Patient with high blood pressure during this ER visit?: No
Condition: Serious
Covid-19: Not Applicable
Discharge Problem:
Respiratory failure, [id number]
Prescriptions:
No Action
spironolactone 25 mg Tablet
12.5 mg PO DAILY
atorvastatin 80 mg Tablet
80 mg PO HS
sennosides [senna] 8.6 mg Tablet
8.6 mg PO BID
carvedilol 6.25 mg Tablet
6.25 mg PO BID
Rx Instructions:
HOLD FOR SBP<100 AND hr<60
ipratropium-albuterol 0.5 mg-3 mg(2.5 mg base)/3 mL Solution For Nebulization
3 ml INHALATION R BID
Rx Instructions:
09/19/24:TAKE FOR 7 DAYS. START DATE 09/18/24. END DATE 09/25/24
ammonium lactate 12 % Lotion
1 applic TOPICAL HS
Patient Comments:
APPLY TO B/L FEET FOR 14 DAYS. START DATE 09/09/24. END DATE 09/23/24
amiodarone 200 mg Tablet
200 mg PO DAILY
thiamine HCl (vitamin B1) 100 mg Tablet
100 mg PO DAILY
melatonin 3 mg Tablet
6 mg PO HS
amlodipine 5 mg Tablet
7.5 mg PO DAILY
Rx Instructions:
HOLD FOR SBP<130
glimepiride 2 mg Tablet
2 mg PO BID
guaifenesin 200 mg Tablet
600 mg PO BID
Rx Instructions:
09/19/24: START DATE 09/17/24. END DATE 10/01/24
tamsulosin [Flomax] 0.4 mg Capsule
0.4 mg PO HS
valproic acid (as sodium salt) 250 mg/5 mL Solution
400 mg PO Q6H
levetiracetam [Keppra] 750 mg Tablet
1,500 mg PO BID
heparin (porcine) 5,000 unit/mL Solution
5,000 unit SC Q8H
Rx Instructions:
09/19/24:TAKE FOR 28 DAYS. START DATE 09/06/24. END DATE 10/04/24
amoxicillin-pot clavulanate [Augmentin] 500-125 mg Tablet
1 tab PO Q8H
Rx Instructions:
09/19/24:TAKE FOR 5 DAYS. START DATE 09/18/24. END DATE 09/23/24.
insulin lispro [Humalog Pen] 100 unit/mL Insulin Pen
1 sliding scale dose SC Q6H
Rx Instructions:
150-200=1 UNIT, 201-250=2 UNITS, 251-300=3 UNIT, 301-350=4 UNITS, 351-400=5UNITS
Visbiome 112.5 billion cell Capsule
1 cap PO BID
Rx Instructions:
09/19/24:TAKE FOR 7 DAYS. START DATE 09/18/24. END DATE 09/25/24
saxagliptin 2.5 mg Tablet
2.5 mg PO DAILY
magnesium hydroxide [Milk of Magnesia] 400 mg/5 mL Suspension
30 ml PO [id number] PRN (Reason: constipation)
bisacodyl [Dulcolax (bisacodyl)] 10 mg Suppository
10 mg VA DAILYPRN PRN (Reason: MOM ineffective)
Fleet Enema 19-7 gram/118 mL Enema
118 ml VA DAILYPRN PRN (Reason: dolcolax ineffective)
metformin 1,000 mg tablet
1,000 mg PO BID
acetaminophen [Tylenol] 325 mg Tablet
650 mg PO Q6HPRN MDD 3000mg PRN (Reason: mild pain/temp>100)
omeprazole magnesium [Prilosec OTC] 20 MG tablet,delayed release (DR/EC)
20 mg PO DAILY Qty: 0 0RF
Referrals:
Lux Elliott CRNP [Family Provider] -
Interventions
Interventions:
*Risk Screen - Suicide Last Done: 09/19/24 17:12
*General Assessment Last Done: 09/19/24 17:12
*Neglect/Abuse Screening Last Done: 09/19/24 17:12
*ED- Fall Risk Assessment Last Done: 09/19/24 17:12
*ED COVID-19 Vaccine History Last Done: 09/19/24 17:12
ED- Pulmonary Assessment Last Done: 09/19/24 17:27
ED- Neurological Assessment Last Done: 09/19/24 17:27
ED- Cardiac Assessment Last Done: 09/19/24 17:27
ED Swallowing Screen Last Done: 09/19/24 17:27
Discharge Date and Time
Print Language: SURINAMESE
[2024-09-19] MEDS: DUONEB 3 ML INH (17:47)
[2024-09-19 18:02] LABS: COVID-19 Antigen Negative (Negative)
[2024-09-19 18:16] LABS: B.E. 5.1 mmol/L; HCO3 27.6 mmol/L (21-28); O2 Saturation % 93.4 % (94-98); PCO2 33 mmHg (35-48); PO2 64 mmHg (83-108); pH 7.53 (7.35-7.45)
[2024-09-19] MEDS: MAXIPIME 2000 MG IV (20:12)
[2024-09-19] MEDS: NSS 1000 IV (20:12)
--- NOTE | 2024-09-19 20:21 | HPS.HSE ---
Family Physician
-
Family Physician: Lux Elliott
Chief Complaint
-
Hypoxia, confusion, hypoglycemia
History of Present Illness
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 He had cough with subacute onset confusion and hypoxia with chest x-ray at rehab showing pneumonia. EMS was called
due to pulse ox in the mid 80s patient was placed on oxygen and his blood sugar was in the 40s which was treated with dextrose by EMS.
Patient was diagnosed in June with a hemorrhagic brain mass he was sent to [facility] on and [address] in [place] had resection and whole brain radiation x 5 treatments in July he then was readmitted August 18 to September 03
due to seizures he had seizure medication added which included Keppra and valproic acid during his admission he received an additional 5 treatments of whole brain radiation from 08/26 to 08/31/2024. He also had a renal biopsy on September 03, 2024 to
confirm metastatic squamous cell versus multiple types of cancer. He currently is extremely lethargic sleeping with difficulty to arouse must shout and shake his arm he did say his first name was Kapil but believes his last name was Christina he then
fell back asleep during my exam while sleeping his oxygen drops to 83% on high flow O2 he then improved to 91-92% on high flow O2 while there. His family is at bedside daughter and granddaughter. He has past medical history of COPD,
dysphagia, HTN, HLD, traumatic subdural hemorrhage from fallJune 2023 hemorrhagic brain mass June 2023 ,Status post right parietal hemorrhagic mass status post craniotomy, seizures post brain hemorrhage starting in August 2024, squamous cell
with mets to brain and kidneys June - September 2023 whole brain radiation x 2 July and August 2023, DM 2, cardiac arrhythmia, ambulatory dysfunction, heart failure, insomnia, permanent pacemaker, protein malnutrition
Medical History
Past Medical History
Past Medical History: Reports Other
Additional Past Medical History:
COPD, dysphagia, HTN, HLD, traumatic subdural hemorrhage from fallJune 2023 hemorrhagic brain mass June 2023 ,Status post right parietal hemorrhagic mass status post craniotomy, seizures post brain hemorrhage starting in August 2024, squamous
cell with mets to brain and kidneys June - September 2023 whole brain radiation x 2 July and August 2023, DM 2, cardiac arrhythmia, ambulatory dysfunction, heart failure, insomnia, permanent pacemaker, protein malnutrition
Past Surgical History: Reports Other
Social History
Tobacco: Non-smoker
Alcohol: None
Drug: None
Family History
Family History: Not pertinent
Allergies / Home Medications
Allergies reflects when Allergies were last updated in [employer].
Home Medications with original date entered in [employer]
Allergy/Medication List:
Allergies
Allergy/AdvReac Type Severity Reaction Status Date / Time
thiopental Allergy stopped Verified 09/19/24 22:07
breathing
Home Medications
acetaminophen 325 mg tablet (Tylenol) 650 mg PO Q6HPRN PRN mild pain/temp>100 06/11/24
omeprazole magnesium 20 mg tablet,delayed release (Prilosec OTC) 20 mg PO DAILY GERD #0 tabs 06/27/24
spironolactone 25 mg tablet 12.5 mg PO DAILY 08/18/24
Lactobac no.2-Bifidobac no.1-S. thermo 112.5 billion cell capsule (Visbiome) 1 cap PO BID 09/19/24
amiodarone 200 mg tablet 200 mg PO DAILY 09/19/24
amlodipine 5 mg tablet 7.5 mg PO DAILY 09/19/24
ammonium lactate 12 % lotion 1 applic topical HS 09/19/24
amoxicillin 500 mg-potassium clavulanate 125 mg tablet (Augmentin) 1 tab PO Q8H 09/19/24
atorvastatin 80 mg tablet 80 mg PO HS 09/19/24
bisacodyl 10 mg rectal suppository (Dulcolax (bisacodyl)) 10 mg CA DAILYPRN PRN MOM ineffective 09/19/24
carvedilol 6.25 mg tablet 6.25 mg PO BID 09/19/24
glimepiride 2 mg tablet 2 mg PO BID 09/19/24
guaifenesin 200 mg tablet 600 mg PO BID 09/19/24
heparin (porcine) 5,000 unit/mL injection solution 5,000 unit SC Q8H 09/19/24
insulin lispro 100 unit/mL subcutaneous pen 1 sliding scale dose SC Q6H 09/19/24
ipratropium 0.5 mg-albuterol 3 mg (2.5 mg base)/3 mL nebulization soln 3 ml inhalation R BID 09/19/24
levetiracetam 750 mg tablet (Keppra) 1,500 mg PO BID 09/19/24
magnesium hydroxide 400 mg/5 mL oral suspension (Milk of Magnesia) 30 ml PO [id number] PRN constipation 09/19/24
melatonin 3 mg tablet 6 mg PO HS 09/19/24
metformin 1,000 mg tablet 1,000 mg PO BID Diabetes 09/19/24
saxagliptin 2.5 mg tablet 2.5 mg PO DAILY 09/19/24
sennosides 8.6 mg tablet (senna) 8.6 mg PO BID 09/19/24
sodium phosphates 19 gram-7 gram/118 mL enema (Fleet Enema) 118 ml CA DAILYPRN PRN dolcolax ineffective 09/19/24
tamsulosin 0.4 mg capsule (Flomax) 0.4 mg PO HS 09/19/24
thiamine HCl (vitamin B1) 100 mg tablet 100 mg PO DAILY 09/19/24
valproic acid (as sodium salt) 250 mg/5 mL oral solution 400 mg PO Q6H 09/19/24
Review of Systems
-
History Source: Patient and Family (Family bedside)
A 12 point ROS was completed and negative except as noted: Yes
Constitutional: Reports Fatigue and Other (Lethargic only able to say patient's first name Kapil)
EENT: Denies Sore Throat or Runny Nose
Respiratory: Denies Cough, Trouble Breathing or Other
Cardiac: Denies Chest Pain, Diaphoresis, Palpitations or Syncope
Abdomen/GI: Denies Abdominal Pain, Nausea, Vomiting, Diarrhea, Constipated or Bloody Stools
: Denies Incontinence
Musculoskeletal: Denies Edema
Skin: Denies Itching or Rash
Neurological: Reports Weakness
Physical Exam
Vital Signs
Vital Signs
Temp Pulse Resp BP Pulse Ox
98.8 F 85 22 124/82 90
09/19/24 17:10 09/19/24 17:16 09/19/24 17:09 09/19/24 17:12 09/19/24 17:27
Physical Exam
General: Other (Generalized with extreme lethargy did see name Kapil falls asleep during my exam)
HEENT: NormoCephalic, Anicteric, PERRLA, [place] Conjunctivae, No Ptosis and Other (Dry oral mucosa)
Respiratory: Rhonchi (Right middle lung); No Wheezes or Rales
Cardiac: S1/S2 and Regular Rhythm; No Murmur, Rub, Gallop or Peripheral Edema
Breast: Deferred by me
GI: Soft, Non Tender, Non Distended, Normal Bowel Sounds and No Hepatosplenomegaly
Rectal: Deferred by Provider
Genito-urinary: Deferred by me
Musculoskeletal: No Clubbing, No Cyanosis and No Edema
Skin: Warm and Dry; No Rash or Jaundice
Neuro: Other (Extremely lethargic awakes to shouting what is your name was able to state Kapil but is confused states last name is O'Hoang then falls back asleep is not able to follow review of systems); No Slurred Speech, Facial Droop or Tremors
Psych: Calm
Laboratory Results
-
09/19/24 17:14
09/19/24 17:14
Laboratory Results
pH 7.53 (7.35-7.45) H 09/19/24 17:56
pCO2 33 mmHg (35-48) L 09/19/24 17:56
pO2 64 mmHg (83-108) L 09/19/24 17:56
HCO3 27.6 mmol/L (21-28) 09/19/24 17:56
Total Bilirubin 0.5 mg/dl (0.2-1.3) 09/19/24 17:14
AST 24 U/L (17-59) 09/19/24 17:14
ALT 24 U/L (0-50) 09/19/24 17:14
Alkaline Phosphatase 132 U/L (38-126) H 09/19/24 17:14
Data Reviewed
-
Diagnostic Radiology: Report Reviewed by me
CT Scan: Report Reviewed by me
Lab Data: Labs Reviewed by me
Impression/Plan
-
Impression/plan:
Admit to IMU
#Acute hypoxic respiratory failure 2/2 Pneumonia left upper lobe, right bibasilar also concern for mets
# Metabolic encephalopathy /sepsis secondary to left upper lobe, right basilar pneumonia concern for aspiration
WBC 32.3 > 20.7 on 08/18/2024 prior range 11-12 2023 until June 29
temp 98.8 F, HR 85, 124/82
83-91% on mid flow O2 will change to high flow and monitor pulse oximetry
COVID/flu-negative
- IV Zosyn, IV doxycycline
- Sputum culture
- Speech swallow eval
- May attempt p.o. meds if awake and able to pass bedside swallow
- IV NSS 100 cc an hour x 2 L max appears hypovolemia
CT PE study: 1. No evidence of central, lobar or segmental pulmonary embolism.
2. Left greater than right bibasilar consolidations which may represent pneumonia, possible atelectasis.
3. Scattered nodules within the left upper lobe measuring up to 7 mm. This appears similar to prior recent pet/CT however in the setting of malignancy pulmonary metastasis cannot be excluded.
Recommend continued follow-up.
CT head:Postoperative changes of right parietal craniotomy with an underlying heterogeneous operative bed which may represent an element of evolving postoperative change or residual mass.
There are bilateral holohemispheric mixed density extra-axial collections which have slightly decreased in size from prior.
There are areas of hyperdensity within the collections for which a small acute on chronic element cannot be excluded.
There is associated mass effect on the subjacent parenchyma, slightly decreased from prior. Consider follow-up CT head to ensure stability.
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
-Biopsy brain [facility] June 25, 2024
- Whole brain radiation July 25 25 x 5 episodes then August 26 two 329 x 5 episodes
- Patient follows with [facility] at [facility]
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
Patient was admitted to [facility] August 18 - September 03 started on Keppra, valproic acid
renal biopsy September 03 confirmed squamous cell
- Continue Keppra IV 1500 mg twice daily, valproic 400 mg p.o. every 6
#DM2 with prehospital Hypoglycemia
History Hgb A1c 7.3 on 06/27/2024
Blood sugar 40 earlier today 09/19/2024 at rehab treated by EMS with IV dextrose
-Current blood sugar 221 post dextrose given by EMS
-Accu-Cheks with SSI low
- HOLD glimepiride 2 mg p.o. twice daily
-HOLD metformin x 48 hours after IV contrast May resume 09/22/2024
#Chronic CHF
I/O, daily weights
Hold spironolactone
#Hx hyponatremia
NA 136 stable
#Corrected calcium 10.7
#Arrhythmia status post biventricular ICD
Follow-up follows with outpatient cardiology, tachycardia on occasions
Continue heparin subcu every 8 H
#HTN
-HOld carvedilol 6.25 mg p.o. twice daily
#HLD
-Hold atorvastatin 80 mg at bedtime
#CAD status post stents
cont statin, carvedilol 6.25 mg p.o.
#Insomnia
- Hold melatonin
#Chronic headaches likely due to whole brain radiation
DVT prophylaxis
Subcu heparin
Full code per family at bedside
--- NOTE | 2024-09-19 21:54 | W.PN.UPDATE ---
Update Note
Progress Note Update
This is an addendum to H&P written by Malathi Abdalla on 09/19/2024. Patient seen and examined independently with APPLICATION ARCHITECT.
83-year-old male past medical history of asthma/COPD, squamous cell skin cancer with metastases to brain, kidney, right parietal hemorrhagic mass status post postcraniotomy, hypertension, CAD status post stents, systolic heart failure with
biventricular ICD, history of arrhythmia, hyperlipidemia, type 2 diabetes, anemia, presenting with cough, hypoxemia.
Labs show leukocytosis of 32. ABG shows pH of 7.53, pCO2 of 33. PO2 of 64. Blood sugar 200.
CT PE shows no evidence of pulmonary embolism. There is left greater than right bibasilar consolidations which may represent pneumonia versus possible atelectasis. Scattered nodules within the left upper lobe up to 7 mm. Appears similar to prior
scans with pulmonary metastasis cannot be excluded.
Patient requiring 14 L of oxygen.
COVID and flu negative.
Patient with sepsis/hypoxemia history of failure secondary to pneumonia. Check sputum culture. IV fluids. Zosyn/doxycycline. Convert oral seizure medications to IV. Insulin sliding scale.
[2024-09-19] MEDS: KEPPRA 1500 MG IV (23:31)
[2024-09-20] VITALS (21 sets, daily range): BP systolic 80–140; BP diastolic 60–83; PULSE 2–89; BMI 21.6; BMI 21.7
[2024-09-20] MEDS: DEPACON 54 MG IV ×5 (01:07→23:22)
[2024-09-20] MEDS: VIBRAMYCIN 260 MG IV ×3 (01:07→22:31)
--- NOTE | 2024-09-20 01:43 | PTCARENOTE ---
received patient from ED via stretcher. Patient came up from ED ON HFNC. Patient began desating, non rebreather was placed with HFNC. Patient desating into low 80s, RT placed patient on bipap and patient sating at 97%. Three daughters at bedside
with patient. call kurtz in reach.
[2024-09-20] MEDS: ZOSYN 50 IV ×4 (02:13→22:15)
[2024-09-20] MEDS: NSS 1000 IV (04:30)
[2024-09-20 05:26] LABS: ALT (SGPT) 24 U/L (0-50); AST (SGOT) 27 U/L (17-59); Albumin 2.9 g/dl (3.5-5.0); Alkaline Phosphatase 136 U/L (38-126); Blood Urea Nitrogen 24 mg/dl (9-20); Calcium 11.9 mg/dl (8.4-10.2); Carbon Dioxide 25 mmol/L (22-30); Chloride 106 mmol/L (98-107); Estimated Creatinine Clearance 57 ml/min; Glucose 89 mg/dl (70-99); Potassium 4.6 mmol/L (3.5-5.1); Sodium 140 mmol/L (135-145); Total Bilirubin 0.6 mg/dl (0.2-1.3); Total Protein 5.7 g/dl (6.3-8.2); eGFR > 60.00
[2024-09-20 05:33] LABS: Hematocrit 40.2 % (39.0-52.0); Hemoglobin 13.8 g/dL (13.0-18.0); Mean Corp Hgb Conc. 34.3 g/dL (33.0-37.0); Mean Corpuscular Hgb 31.9 pg (27.0-31.0); Mean Corpuscular Volume 93.1 fL (80.0-94.0); Mean Platelet Volume 9.2 fL (7.4-10.4); Platelet Count 176 10^3/uL (130-400); Red Blood Cell Count 4.32 10^6/uL (4.70-6.10); Red Cell Dist. Width 19.8 % (11.5-14.5); White Blood Cell Count 33.3 10^3/uL (4.8-10.8)
[2024-09-20] MEDS: COREG PO ×2 (07:35→21:28)
[2024-09-20] MEDS: VISBIOME PO ×2 (07:36→21:29)
[2024-09-20] MEDS: SENOKOT PO ×2 (07:36→21:28)
[2024-09-20] MEDS: HEPARIN 5000 UNITS SC (07:41)
[2024-09-20] MEDS: KEPPRA 1500 MG IV ×2 (07:41→21:31)
[2024-09-20 07:50] LABS: B.E. 3.9 mmol/L; HCO3 27.7 mmol/L (21-28); O2 Saturation % 88.4 % (94-98); PCO2 38 mmHg (35-48); pH 7.47 (7.35-7.45)
[2024-09-20 07:51] LABS: % Basophils 0.1 % (0-2); % Eosinophils 0.3 % (0-6); % Lymphocytes 6.2 % (20.5-51.1); % Monocytes 4.3 % (1.7-9.3); % Neutrophils 85.1 % (42.2-75.2); Absolute Eosinophils 0.1 10^3/uL (0-0.7); Absolute Immature Granulocytes 1.3 10^3/uL (0-0.05); Absolute Lymphocytes 2.1 10^3/uL (1.2-3.4); Absolute Monocytes 1.4 10^3/uL (0.1-0.6); Absolute Neutrophils 28.3 10^3/uL (1.4-6.5); Nucleated Red Blood Cells % 0.1 % (-)
[2024-09-20 07:55] LABS: PO2 57 mmHg (83-108)
--- NOTE | 2024-09-20 08:05 | PTCARENOTE ---
During AM rounds, patient 85% on BiPAP 12/5. Patient very lethargic and occasionally following commands. Dr. Lawrence made aware. ABG ordered. RT at bedside. Dr. Lawrence at bedside and spoke to patients daughter about plan of care. Care ongoing.
[2024-09-20] MEDS: DUONEB 3 ML INH ×4 (08:17→19:28)
--- NOTE | 2024-09-20 08:29 | CON.INTV ---
Consultation
Consultation Request
Date/Time Consultation Requested: 09/20/2024805
Date/Time Consultation Performed: 09/20/2024821
Requesting Provider: Dr. Lawrence
Performing Provider: Dr. Salcedo
Reason for Consultation: Hypoxia; AMS
Medical History
-
Chief Complaint: Altered mental status with low blood sugar
History of Present Illness:
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
(reported renal biopsy on 09/03/2024 showed squamous cell carcinoma), history of skin cancer (BCC + SCC s/p excision), chronic HFmrEF, history of falls, DM type II, CAD, chronic lower back pain, and ICM/LBBB s/p BiV-ICD (implanted 02/2014) who
presented from [facility] due to altered mental status. Family has reported the patient's been declining lately and had a recent diagnosis of pneumonia. Reportedly, patient's blood sugar was 40 for EMS, and he was given 400 cc of D10. He
was extremely lethargic in the ER. His , daughter and granddaughter were present at bedside. Initial vitals showed he was afebrile to 98.8 �F, pulse rate 82, respiratory rate 22, BP 124/82 and saturating 88% on room air, which improved to 90%
with 4 L/min nasal cannula. Initial labs showed significant leukocytosis to 32.3, respiratory alkalosis with pH 7.53, pCO2: 33, and hypoxia with PO2: 64. Initial glucose 221, + calcium level 11.4. Flu swab for A/B was negative. In the ER he was
given cefepime, DuoNebs + IVF with 1 L NS 0.9% and then was trialed on high flow nasal cannula due to worsening hypoxia. He continued to desaturate despite being on high flow nasal cannula and nonrebreather, and was transition to BiPAP on 05/09
cmH2O bled with 15 L/min and was admitted to the IMU for further care. This morning he continues to be minimally responsive and hypoxic, and [facility] services consulted for additional management/recommendations.
When I saw the patient he was in bed, eyes closed, minimally responsive, with his daughter, Carlotta, at bedside as well as the hospitalist, Dr. Lawrence. The patient does nod his head to acknowledge that I am speaking with him but he still remained
nonverbal. He was currently on BiPAP but the oxygen cannula was not attached. He was saturating 88% on BiPAP 18/5 cmH2O, with BP 124/66, and pulse rate 84. Once the BiPAP was connected to the oxygen, his saturations improved to 98% on 15 L/min.
Amiodarone being started via drip as he is unable to take oral medications at this time. Also being started on D5�NS at 60 cc/hr. I answered all of the daughters questions (see plan for details).
PMHx: Skin cancer (BCC + SCC s/p excision), right parietal lobe metastasis (seen on CT head at on 06/03/2024) s/p right parietal craniotomy on 06/07/2024 (path showed metastatic poorly differentiated carcinoma involving the brain) s/p SRS
(Jun-July + August 2024 - [facility]), chronic subdural hematomas (bilaterally), right renal mass with Hx of renal Bx on 09/03/2024 showing SCC, ambulatory dysfunction/physical deconditioning, mixed hyperlipidemia, DM type II, CAD, ICM/LBBB s/p BiV-ICD
(implanted 02/2014), chronic HFmrEF (TTE from 02/13/2024 showed LVEF 45-50%), nephrolithiasis, chronic lower back pain, Hx of falls (05/2024), reported history of COPD, dysphagia, hypertension, hyperlipidemia, traumatic subdural hemorrhage s/p fall
(06/2023), insomnia, malnutrition
PSHx: Appendectomy, hernia repair, coronary stent, BiV ICD generator replacement (10/2020)
Past Medical History
Past Medical History: Other (Above as per HPI)
Past Surgical History: Other (Above as per HPI)
Social History
Tobacco: Non-smoker
Alcohol: Other (Previous use was social)
Drug: None
Personal:
Living: With Family
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
Family History
Family History: CAD (Mother), Cancer (Sister: Small cell lung cancer) and Diabetes (Granddaughter: Type I diabetic)
Allergies / Home Medications
Allergies
Allergy/AdvReac Type Severity Reaction Status Date / Time
thiopental Allergy stopped Verified 09/19/24 22:07
breathing
Home Medications
�Medication �Instructions �Recorded �Confirmed �Last Taken �Type
acetaminophen 325 mg tablet 650 mg PO Q6HPRN PRN mild 06/11/24 09/19/24 Unknown History
(Tylenol) pain/temp>100
omeprazole magnesium 20 mg 20 mg PO DAILY GERD #0 tabs 06/27/24 09/19/24 10/20/20 08:00 Rx
tablet,delayed release (Prilosec
OTC)
spironolactone 25 mg tablet 12.5 mg PO DAILY 08/18/24 09/19/24 Unknown History
Lactobac no.2-Bifidobac no.1-S. 1 cap PO BID 09/19/24 09/19/24 Unknown History
thermo 112.5 billion cell capsule
(Visbiome)
amiodarone 200 mg tablet 200 mg PO DAILY 09/19/24 09/19/24 Unknown History
amlodipine 5 mg tablet 7.5 mg PO DAILY 09/19/24 09/19/24 Unknown History
ammonium lactate 12 % lotion 1 applic topical HS 09/19/24 09/19/24 Unknown History
amoxicillin 500 mg-potassium 1 tab PO Q8H 09/19/24 09/19/24 Unknown History
clavulanate 125 mg tablet
(Augmentin)
atorvastatin 80 mg tablet 80 mg PO HS 09/19/24 09/19/24 Unknown History
bisacodyl 10 mg rectal suppository 10 mg NM DAILYPRN PRN MOM 09/19/24 09/19/24 Unknown History
(Dulcolax (bisacodyl)) ineffective
carvedilol 6.25 mg tablet 6.25 mg PO BID 09/19/24 09/19/24 Unknown History
glimepiride 2 mg tablet 2 mg PO BID 09/19/24 09/19/24 Unknown History
guaifenesin 200 mg tablet 600 mg PO BID 09/19/24 09/19/24 Unknown History
heparin (porcine) 5,000 unit/mL 5,000 unit SC Q8H 09/19/24 09/19/24 Unknown History
injection solution
insulin lispro 100 unit/mL 1 sliding scale dose SC Q6H 09/19/24 09/19/24 Unknown History
subcutaneous pen
ipratropium 0.5 mg-albuterol 3 mg 3 ml inhalation R BID 09/19/24 09/19/24 Unknown History
(2.5 mg base)/3 mL nebulization
soln
levetiracetam 750 mg tablet 1,500 mg PO BID 09/19/24 09/19/24 Unknown History
(Keppra)
magnesium hydroxide 400 mg/5 mL 30 ml PO [id number] PRN constipation 09/19/24 09/19/24 Unknown History
oral suspension (Milk of Magnesia)
melatonin 3 mg tablet 6 mg PO HS 09/19/24 09/19/24 Unknown History
metformin 1,000 mg tablet 1,000 mg PO BID Diabetes 09/19/24 09/19/24 Unknown History
saxagliptin 2.5 mg tablet 2.5 mg PO DAILY 09/19/24 09/19/24 Unknown History
sennosides 8.6 mg tablet (senna) 8.6 mg PO BID 09/19/24 09/19/24 Unknown History
sodium phosphates 19 gram-7 118 ml NM DAILYPRN PRN dolcolax 09/19/24 09/19/24 Unknown History
gram/118 mL enema (Fleet Enema) ineffective
tamsulosin 0.4 mg capsule (Flomax) 0.4 mg PO HS 09/19/24 09/19/24 Unknown History
thiamine HCl (vitamin B1) 100 mg 100 mg PO DAILY 09/19/24 09/19/24 Unknown History
tablet
valproic acid (as sodium salt) 250 400 mg PO Q6H 09/19/24 09/19/24 Unknown History
mg/5 mL oral solution
Review of Systems
-
Unable to Obtain full review of systems at this time due to: Acuity
Vitals / Labs / Diagnostic Testing
Vital Signs
Temp Pulse Resp BP Pulse Ox
97.6 F 82 20 117/76 88
09/20/24 07:07 09/20/24 08:19 09/20/24 08:19 09/20/24 04:00 09/20/24 08:19
Lab Data
09/20/24 08:33
Laboratory Results
09/19/24 09/20/24
17:56 07:39
pH 7.53 H 7.47 H
pCO2 33 L 38
pO2 64 L 57 L*
HCO3 27.6 27.7
O2 Delivery Level
Microbiology
09/19/24 17:14 Nasal Swab Influenza Types A & B (JAYME) - Final
Negative for Influenza A & B, NAAT
Negative results must be combined with clinical observations
and patient history.
Nucleic Acid Amplification test (NAAT)performed on the
[employer] platform.
Diagnostic Testing:
Physical Exam
-
HEENT: Normocephalic and Anicteric
Cardiovascular: S1/S2, Peripheral Edema (+1 LE pitting edema bilaterally) and Other (Normal rate; V-paced rhythm)
Respiratory: Wheeze (negative), Rales (Bilateral), Rhonchi (negative), Non-Labored Respirations and Other (Diminished breath sounds bilaterally)
GI: Soft, Non Distended, Non Tender and Normal Bowel Sounds
Neurology: Tremors (negative) and Other (Minimally responsive although nods his head yes when I say his name but not verbally answering questions; pupils 2 mm bilaterally and brisk)
Skin: Warm and Dry
General: Respiratory Distress (negative), Chills (negative) and Sweats (negative)
Assessment
-
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
02/2014) who presented from [facility] due to altered mental status. Family has reported the patient's been declining lately and had a recent diagnosis of pneumonia. Reportedly, patient's blood sugar was 40 for EMS, and he was given 400 cc
of D10. He was extremely lethargic in the ER. His , daughter and granddaughter were present at bedside. Initial vitals showed he was afebrile to 98.8 �F, pulse rate 82, respiratory rate 22, BP 124/82 and saturating 88% on room air, which
improved to 90% with 4 L/min nasal cannula. Initial labs showed significant leukocytosis to 32.3, respiratory alkalosis with pH 7.53, pCO2: 33, and hypoxia with PO2: 64. Initial glucose 221, + calcium level 11.4. Flu swab for A/B was negative.
In the ER he was given cefepime, DuoNebs + IVF with 1 L NS 0.9% and then was trialed on high flow nasal cannula due to worsening hypoxia. He continued to desaturate despite being on high flow nasal cannula and nonrebreather, and was transition to
BiPAP on 12/5 cmH2O bled with 15 L/min and was admitted to the IMU for further care. This morning he continues to be minimally responsive and hypoxic, and [facility] services consulted for additional management/recommendations.
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
s/p SRS (Jun-July + August 2024 - [facility]), chronic subdural hematomas (bilaterally), right renal mass with Hx of renal Bx on 09/03/2024 showing SCC, ambulatory dysfunction/physical deconditioning, mixed hyperlipidemia, DM type II, CAD, ICM/LBBB s/p
BiV-ICD (implanted 02/2014), chronic HFmrEF (TTE from 02/13/2024 showed LVEF 45-50%), nephrolithiasis, chronic lower back pain, Hx of falls (05/2024), reported history of COPD, dysphagia, hypertension, hyperlipidemia, traumatic subdural hemorrhage s/p
fall (06/2023), insomnia, malnutrition
Impression:
#Acute encephalopathy likely due to known CORPORATE INVESTIGATOR metastasis of poorly differentiated carcinoma in setting of hypercalcemia + suspected TME with sepsis from UTI; unlikely pneumonia
#Acute respiratory failure with hypoxia likely due to sepsis with positive SIRS criteria
#Leukocytosis likely due to sepsis (also now on systemic steroids)
#Hypercalcemia (seems as if his calcium level has been elevated since 08/18/2024) - this could be paraneoplastic
#DM type II (uncontrolled � HbA1c: 6.9 on 09/20/2024)
#Chronic subdural hematomas with persistent mass effect on the adjacent frontoparietal lobes (slightly improved on CT head 09/19/[address] head from 08/18/2024)
#History of skin cancer (BCC and SCC s/p excision)
#Right parietal lobe brain metastasis (first seen on CT head at - 06/03/2024) s/p craniotomy (06/07/2024- path showed metastatic poorly differentiated carcinoma involving the brain) s/p SRS (Jun-July 2024 - [facility])
#Exophytic right kidney mass measuring 4.4 x 4.[address] A/P from 08/13/2024, suspicious for cystic RCC
#Bilateral nephrolithiasis
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
#Reported Hx of COPD
#Multiple pulmonary nodules (RUL, MURALI + RML) - all are <6 mm
#CAD s/p stents
#Hx of HFrEF/ICM s/p BiV-ICD (now with improved LVEF to 40-45% from 30%)
Plan:
- Check Grader services were called due to continued hypoxia with altered mental status with concern for airway protection
- He does have chronic subdural hematomas with history of infarcts suspected to be embolic, possibly due to hypercoagulability of malignancy
- Brain imaging done yesterday (09/19) here at shows continued bilateral mixed density extra�axial collections which have slightly improved compared to last CT head on 08/18/2024, and there is an associated mass effect on the subjacent parenchyma
involving the frontoparietal lobes -perhaps this is contributing most to his current decline
- Blood gas checked yesterday and today shows respiratory alkalosis with significant hypoxia with a increased A-a gradient
- He is euglycemic, TSH is WNL at 4.25, Pro-Valentin was WNL at 0.2 this morning, troponin is negative at <0.012, although calcium level is elevated at 11.7
- Would administer crystalloids and continue trending his calcium level and also check an ionized calcium level to confirm hypercalcemia
- Further hypercalcemic workup (i.e. 25-OH-Vit D, PTH, PTHrP) deferred to hospitalist
- Check EEG and consider neurology consult; given his worsening leukocytosis with AMS, need to consider encephalitis; continue with keppra + valproic acid(home dose)
- Continue broad spectrum Abx for now and check infectious workup with blood Cx, UA with UCx, sputum Cx (if a decent sample can be obtained) + urine antigens (Legionella + strep pneumonia)
- He has had multiple MRIs with most recent one on 07/12/2024 - would check an MRI brain + MRA head/neck, if neuro agrees
- Avoid narcotics or any CORPORATE INVESTIGATOR depressant medications as this will only worsen his mental status; if we transition to hospice/comfort care then it would be okay to start narcotics in that scenario
- Unclear what is driving his hypoxia; would recommend an echo with bubble study to rule out a shunt
- There is no convincing evidence for pneumonia on his CTA chest from 09/19/2024, also no acute PE seen
- He carries a history of COPD, although there is no emphysema seen on recent CTA Chest imaging from 09/19, he is a non-smoker
- No PFTs available for review; hence at this point would continue with BiPAP while keeping HOB >30-45� to reduce risk of aspiration
- Maintain SpO2 88-95%, weaning down supplemental O2 flow rate as tolerated, and transition to nasal cannula vs venturi mask vs high flow depending on O2 requirements gonig forward
- If risk of aspiration rises then need to take him off BiPAP immediately, and would instead use either a Ventimask, nonrebreather or possibly high flow nasal cannula depending on his symptoms, degree of hypoxia and goals of care
- Continue nebulized bronchodilators QID with prn DuoNebs (not currently bronchospastic)
- Patient is not currently wheezing, and hospitalist started Decadron 6 mg IV q8hr -unclear what the benefit is here considering he is not in a circulatory shock state, does not have severe CAP, and I question the diagnosis of COPD; also absolute
eosinophil count is unimpressive --> will lower steroids to solumedrol 40mg q12hr for now and re-assess tomorrow if still needed
- Maintain MAP>65
- He takes PO amiodarone at home, hence he is now on amiodarone drip; he will need a PICC line or central line if he continues to remain on amiodarone for >24 hours
- Replete electrolytes with K>4, Mg>2
- Maintain euglycemia with goal BG 140-180
- Trend H/H and transfuse if needed to keep Hb>7g/dL; keep plt>20k, unless there is concern for bleeding then keep plt>50k
- Avoid PO meds for now and keep NPO until mentation hopefully improves
- DVT ppx: SCDs for now, although CT head shows stable chronic subdural hematomas. If H&H remained stable for the next 24 hours and he continues to be full medical management, then would start heparin SQ vs LMWH at that time; his outpatient
neurologist, Dr. Jonathan Ronquillo, wanted to start Eliquis in the setting of his known ischemic infarcts with the risk of hypercoagulability of malignancy; decision was pending neurosurgery's opinion given his history of chronic subdural hematomas
Goals of care discussion held with the hospitalist, Dr. Lawrence, myself and patient's daughter, Carlotta. Carlotta says that her and other family members were here in the hospital overnight late yesterday and they had discussed how he has been declining
and decided that they do not want him intubated or to undergo CPR if his heart were to stop. All questions were answered and emotional support was provided.
Given that he remains normotensive, able to answer simple questions by nodding his head despite him being stuporous, and he is saturating 98% on BiPAP blood with 10 L/min. Most important thing here is keeping aspiration precautions, if any concern
for aspiration then the BiPAP needs to come off immediately as this will only hasten aspiration and thus hypoxia in that situation. He is hospice appropriate. Would consult hospice and have them speak to the family.
Pulmonary service will continue to briefly follow along while the family still decides if they want to pursue hospice or not.
Critical care statement: A total of 46 minutes of critical care time was provided for this patient today. This includes management of unstable vital signs, evaluation of the patient at bedside, reviewing the patient's pertinent medical records
including radiographs, microbiology, laboratory evaluations, and discussion with primary team, consultants, pharmacy, nutrition, physical therapy, case management, charge nurse, critical care nursing, and respiratory therapy.
Data:
CXR 09/20/2024: Decreased lung volumes without focal airspace disease or overt pulmonary edema. No pneumothorax.
Abdominal US 09/20/2024: The gallbladder is mildly prominent without sonographic evidence of cholelithiasis, acute cholecystitis or biliary duct dilation; Distended urinary bladder with estimated volume of 1354 cc. There is internal debris within the
urinary bladder which can be seen with cystitis. Consider correlation with urinalysis.
CTA Chest 09/19/2024:
1. No evidence of central, lobar or segmental pulmonary embolism.
2. Left greater than right bibasilar consolidations which may represent pneumonia, possible atelectasis.
3. Scattered nodules within the left upper lobe measuring up to 7 mm. This appears similar to prior recent pet/CT however in the setting of malignancy pulmonary metastasis cannot be excluded. Recommend continued follow-up.
CT Head 09/19/2024:
Postoperative changes of right parietal craniotomy with an underlying heterogeneous operative bed which may represent an element of evolving postoperative change or residual mass. There are bilateral holohemispheric mixed density extra-axial
collections which have slightly decreased in size from prior. There are areas of hyperdensity within the collections for which a small acute on chronic element cannot be excluded. There is associated mass effect on the subjacent parenchyma, slightly
decreased from prior. Consider follow-up CT head to ensure stability.
Brain MRI with and without contrast 07/12/2024 (through [facility]):
1. Acute/early subacute infarcts within the left occipital lobe and the right periventricular white matter, new since 06/07/2024. One of the new infarcts demonstrates contrast-enhancement, likely slightly older in age. A punctate focus of
enhancement in the left occipital lobe more inferiorly is without definite diffusion restriction, but is favored to also reflect sequelae of subacute ischemia given the interval ischemia in the area. Attention on follow-up imaging is recommended to
assess for appropriate interval evolution.
2. Right craniotomy for resection of right parietal metastasis. Largely stable extra�axial collections overlying the right cerebral convexity. Redemonstrated evolving hemorrhage within the right parietal resection cavity with stable to slight
increase in size of residual viable neoplasm at the superior aspect. Slight increase in surrounding edema, likely related to interval therapy. No significant mass effect.
3. Indeterminate mass in the superior right nasal cavity. Correlation with sinonasal exam is recommended.
--- NOTE | 2024-09-20 08:57 | PHA.VAN.IN ---
Assessment
- Assessment
Renal Function: Appears similar to baseline
Concomitant Antimicrobials: doxycycline, piperacillin/tazobactam
AUC Dosing Plan
- Dosing Variables
Dosing Weight (kg): 72.5
Dosing CrCl (ml/min): 57
Vd coefficient (L/kg): 0.7
- Empiric Dosing
Initial / Loading Dose: 2000mg - administration pending
Maintenance Regimen: Vanc 1250mg Q24H starting 09/21 06
Estimated AUC (mcg*h/mL): 495
Estimated Peak (mcg*h/mL): 34.6
Estimated Trough (mcg/ml): 10.8
Estimated Half Life (H): 13.4
- Monitoring
No levels ordered at this time: consider levels in next few days
MRSA Screen: Ordered per protocol
Follow renal function trend - patient with borderline CrCl at baseline - may require dose adjustment
Pharmacokinetics Vancomycin I
- -
Patient Age: 83
Patient Sex: Male
Vancomycin Day #: 1
Indication: Pulmonary/Respiratory
Requesting Provider: Dr. Lawrence
Pertinent Antimicrobial Allergies:
no pertinent antibiotic allergies
Height / Weight:
Height 6 ft
Actual Weight 72.575 kg
Pertinent Past Medical History: metastatic squamous cell
- Vital Signs / Lab Results
Temp Pulse Resp BP Pulse Ox
97.6 F 82 20 117/76 88
09/20/24 07:07 09/20/24 08:19 09/20/24 08:19 09/20/24 04:00 09/20/24 08:19
Lab Results - Hematology
09/19/24 09/20/24
17:14 04:46
WBC 32.3 H 33.3 H
Lab Results - Chemistry
09/19/24 09/20/24
17:14 04:46
BUN 23 H 24 H
Creatinine 1.0 1.0
Estimated Creat Clear 57
Albumin 3.1 L 2.9 L
Microbiology Results
09/19/24 17:14 Influenza Types A & B (JAYME) - Final
Nasal Swab Negative for Influenza A & B, NAAT
Negative results must be combined with clinical observations
and patient history.
Nucleic Acid Amplification test (NAAT)performed on the
[employer] platform.
[2024-09-20 09:00] LABS: Hemoglobin 14.1 g/dL (13.0-18.0); Mean Corp Hgb Conc. 33.6 g/dL (33.0-37.0); Mean Corpuscular Hgb 32.2 pg (27.0-31.0); Mean Corpuscular Volume 95.9 fL (80.0-94.0); Platelet Count 188 10^3/uL (130-400); Red Blood Cell Count 4.38 10^6/uL (4.70-6.10); Red Cell Dist. Width 19.9 % (11.5-14.5); White Blood Cell Count 35.8 10^3/uL (4.8-10.8)
--- NOTE | 2024-09-20 09:02 | W.PN.UPDATE ---
Update Note
Progress Note Update
I was asked to urgently see this patient due to altered mental status with possible need for intubation for airway protection. When I saw the patient he was on BiPAP 18/5 cmH2O but the oxygen nasal cannula was not attached to the machine.
Saturations improved from 88% to 98% after oxygen was attached (15 L/min). I gave instructions respiratory to lower this to 12 and continue lowering while keeping saturations >88-90%. 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 He has been declining last several months, mainly since his new diagnosis of metastatic cancer was made. He normally is an active man. The patient's daughter, Carlotta, was in
the room and she said that she discussed the patient's clinical status and severity of illness with her family members, and she and the family agreed that they would not want him to be on a ventilator or have CPR done. She does want to first
confirm with her family once they all arrive, but she says for now that she does not want him to be intubated or CPR done at least for the next 15-30 minutes.
Patient is hemodynamically stable with SBP in the 120s, MAP >65, now saturating >95% on BiPAP, and per the daughter/family, he is DNR/DNI although this needs to continue to be discussed to make sure that all family members are on board. No need to
transfer to ICU given that he is not in circulatory shock, he is not hypoxic, and as of now we are not going to intubate him or do CPR if he deteriorates. I spoke to the bedside RN, Daisy Dawn, and she is comfortable with continuing to manage
this patient. I discussed the case with the hospitalist, Dr. Lawrence, and he agrees to monitor the patient in the IMU for now, and I made him aware that if at any point the goals of care change that we can take him to the ICU immediately at that
time, if needed. This will be an ongoing discussion. Ideally, he should be transitioned to hospice.
Official Skidder Loader note to follow.
[2024-09-20] MEDS: NOVOLOG FLEXPEN-LOW RESISTANCE SC ×2 (09:07→12:00)
--- NOTE | 2024-09-20 09:08 | W.PN.HOSP.TC ---
Today's Communication/Plan
-
see PN
Assessment / Plan
Assessment / Plan
83yo M with PMHx of COPD, dysphagia, HTN, HLD, Hx of traumatic subdural hemorrhage, squamous skin CA with brain mets s/p hemicranitomy 2 month prior to admission [place] from rehab with worsening cough and SOB with AMS, managed for possible pneumonia
Patient has complicated recent HX of new diagnosis of brain mass in Jun s/p hemicraniotomy, RT, renal biopsy confirming squamous cell cancer, admission with new onset seixures in [place] additional brain RT discharged from [facility] on September 03 to
[facility] with goal to improve functional status ahead of immunotherapy
As per family - patient was able to eat, talk and interactwith them, upon the discharge, but 3 days before this admission became more lethargic, finally found hypoxic and brought to ED.
A/P:
#Acute hypoxic respiratory failure 2/2 possible pneumonia with PMHX of COPD
CT chest on admission without pulmonary embolism, b/l bibasilar comsolidations cannot exclude atelectasis
Serial ABG
wean off O2
Pulm consult
DUonebs
Bcx
sputum Cx
Legionella and S.pneumonia urinary Ag
Vanco/DOxy
Decadron
#Acute metabolic emcephalopathy
suspect 2/2 hypoxia vs infection
treat underlying cause
EEG with HX of Seizure d/o
#Elevated alk.phos
US RUQ
Zosyn
#Acute urinary retention with PMHx of BPH
bladder scan, straight cath and send UA
#Leukemoid reaction
#Pulmonary nodules
#Squamous cell skin CA
#Brain mets s/p resection and RT
Oncology consult
CT with postOP changes with possible residual mass with mass effect that decreased from prior
#Seizure s/o
seizure precautions
cont AED IV
check Valproate level
#DM type 2 with neuropathy
#Hypoglycemiia on admisison
D5NS
Insulin SS, accucjhecks, dm diet when more awake
hold glimeperide
#Hypercalcemia
CA induced vs dehydration since was not able to eat for few days
IVF
follow Ca
#CHronic HFrEF
check proBNP
Hx of EF 30%
#Cardiomyopathy s/p ICD and PPM
Echo
#GOC
DIscussed with daughters in details - DMR/DMI until further decision to be made - family on their way
#Essential HTN
#HLD
cont home meds as patient not with hypotension
DVT ppx SCDs
COde DMR until further family discussion
I have spent at least 80min critical care time reviewing chart, test results, communication with consultants, family and providing direct patient care
Anticipated Discharge: > 48 hours
Subjective/Interval History
-
Date of Service: September 20, 2024
Objective Data
-
Labs:
Laboratory Results
09/20/24 09/20/24 09/20/24
04:46 07:39 08:33
WBC 33.3 H 35.8 H
Hgb 13.8 14.1
Hct 40.2 42.0
Plt Count 176 188
PT
INR
APTT
HCO3 27.7
Sodium 140
Potassium 4.6
Chloride 106
Carbon Dioxide 25
BUN 24 H
Creatinine 1.0
Glucose 89
Calcium 11.9 H
Total Bilirubin 0.6
AST 27
ALT 24
Alkaline Phosphatase 136 H
09/20/24
08:35
WBC
Hgb
Hct
Plt Count
PT Pending
INR Pending
APTT Pending
HCO3
Sodium Pending
Potassium Pending
Chloride Pending
Carbon Dioxide Pending
BUN Pending
Creatinine Pending
Glucose Pending
Calcium Pending
Total Bilirubin Pending
AST Pending
ALT Pending
Alkaline Phosphatase Pending
Vital Signs:
Vital Signs
Temp Pulse Resp BP Pulse Ox
97.6 F 82 20 117/76 88
09/20/24 07:07 09/20/24 08:19 09/20/24 08:19 09/20/24 04:00 09/20/24 08:19
I&O
09/19/24 09/20/24 09/21/24
06:59 06:59 06:59
Output Total 200 / 200
Balance -200 / -200
Review of Systems
-
Unable to obtain full review of systems at this time due to: Acuity
Physical Exam
-
General: Respiratory Distress
HEENT: Moist Mucous Membranes
Cardiac: Regular Rhythm
GI: Soft, Nontender and Nondistended
Musculoskeletal: No Clubbing, No Cyanosis and No Edema
Neuro: Other (lethargic)
Psych: Confused
[2024-09-20 09:09] LABS: PT 13.5 Sec (11.4-14.6)
[2024-09-20 09:10] LABS: Lactic Acid 1.6 mmol/L (0.7-2.0)
[2024-09-20 09:11] LABS: ALT (SGPT) 24 U/L (0-50); AST (SGOT) 23 U/L (17-59); Alkaline Phosphatase 145 U/L (38-126); Blood Urea Nitrogen 23 mg/dl (9-20); Calcium 11.7 mg/dl (8.4-10.2); Carbon Dioxide 28 mmol/L (22-30); Chloride 105 mmol/L (98-107); Direct Bilirubin 0.3 mg/dl (0.0-0.4); Estimated Creatinine Clearance 52 ml/min; Glucose 100 mg/dl (70-99); Magnesium 1.6 mg/dl (1.6-2.3); Potassium 4.3 mmol/L (3.5-5.1); Sodium 142 mmol/L (135-145); Total Bilirubin 0.5 mg/dl (0.2-1.3); Total Protein 5.8 g/dl (6.3-8.2); eGFR > 60.00
[2024-09-20 09:18] LABS: Glucose - Point of Care 108 mg/dl (70-99)
[2024-09-20 09:19] LABS: Glycohemoglobin (HgbA1c) 6.9 % (4.0-5.6)
[2024-09-20 09:22] LABS: NT-proBNP 504 pg/ml; Troponin I < 0.012 ng/ml
[2024-09-20 09:24] LABS: % Basophils 0.1 % (0-2); % Eosinophils 0.2 % (0-6); % Immature Granulocytes 4.1 % (0-0.5); % Lymphocytes 5.8 % (20.5-51.1); % Monocytes 3.5 % (1.7-9.3); % Neutrophils 86.3 % (42.2-75.2); Absolute Eosinophils 0.1 10^3/uL (0-0.7); Absolute Immature Granulocytes 1.5 10^3/uL (0-0.05); Absolute Lymphocytes 2.1 10^3/uL (1.2-3.4); Absolute Monocytes 1.3 10^3/uL (0.1-0.6); Absolute Neutrophils 30.9 10^3/uL (1.4-6.5); Nucleated Red Blood Cells % 0.1 % (-)
[2024-09-20] MEDS: VANCOCIN 540 MG IV (09:36)
[2024-09-20] MEDS: DECADRON 20 MG IV (09:40)
[2024-09-20 09:55] LABS: Urine Albumin 2+ (Neg - Trace); Urine Bilirubin Negative (Negative); Urine Character Cloudy (Clear); Urine Color Yellow; Urine Glucose Negative (Negative); Urine Ketone Negative (Negative); Urine Leukocyte 1+ (Negative); Urine Nitrite Positive (Negative); Urine Occult Blood 3+ (Negative); Urine Specific Gravity 1.015 (<1.030); Urine Urobilinogen 1+ (Neg - 1+)
[2024-09-20] MEDS: CORDARONE 104 MG IV (10:07)
[2024-09-20 10:36] LABS: Urine Amorphous Seen; Urine Squamous Cell 0-2 /LPF (Few)
[2024-09-20 10:37] LABS: Urine Bacteria Many (Negative); Urine White Cell >100 /HPF (0-5)
[2024-09-20] MEDS: D5/0.9% SODIUM CHLORIDE 1000 IV (10:41)
--- NOTE | 2024-09-20 11:13 | PTCARENOTE ---
Patient's SpO2 96% on BiPAP 20/10. Patient grasps hands on command. Patient occasionally opens eyes to voice. Patients code status changed to DNR after discussion between MD and patients daughters. DNR bracelet placed on patient. Patient bladder
scanned for 1400 cc after peeing 200 cc into condom cath. Patient straight cathed per order and 1800 cc out of emily cloudy urine. Patients daughters at bedside. Care ongoing.
--- NOTE | 2024-09-20 11:21 | CHAP ---
Addendum entered by Eli Justin 09/20/24 12:55:
[facility] in [place] provided Sacrament of the Sick (Last Rites) at family's request
Original Note:
Emotional and spiritual support provided. Prayer blanket given. Pastor request relayed to Fr. Blount, on-call carrier blower, who anticipates arriving shortly to provide Sacrament of the Sick.
--- NOTE | 2024-09-20 12:03 | EEG.RPT ---
Electroencephalogram Report
Recording
Date of EE09/20/24
Type of EEG: Routine
Length of EEG recordin minutes
Done with Video Recording: Yes
Patient Status: Inpatient
Recording Conditions: Drowsy and Asleep
Hyperventilation Performed: No
Photic Stimulation Performed: Yes
Report
LESS THAN 1 HOUR REPORT
LESS THAN 1 HOUR EEG INTERPRETATION:
Likely normal study for age in sleep only
CLINICAL CORRELATION:
Although normative values not been established for a person of this advanced age the normal appearance of the sleep structures electrically suggests that this study was unremarkable.
Consideration for a study capturing wakefulness may be of assistance.
Clinical correlation is advised.
METHODS:
A 21 channel digitized electroencephalogram (EEG) was performed at the bedside in the IMU. The 10/20 international system of electrode placement was used with ECG and lateral/vertical eye movements recorded.
ELECTROENCEPHALOGRAPHER IMPRESSION(S):
Quality of study
Good
Background
Absent
Sleep
Drowsiness present
Stage 2 present
Hyperventilation
Not performed
Photic Stimulation
No driving
ECG
Irregular rhythm
[2024-09-20 12:05] LABS: TSH Reflex To Free T4 4.25 uIU/ml (0.47-4.68)
[2024-09-20 12:11] LABS: Glucose - Point of Care 130 mg/dl (70-99)
[2024-09-20 14:09] LABS: B.E. 1.2 mmol/L; PCO2 41 mmHg (35-48); PO2 106 mmHg (83-108); pH 7.41 (7.35-7.45)
--- NOTE | 2024-09-20 14:53 | CM ---
Addendum entered by Laura Ruby RN 09/20/24 16:10:
Spoke with Kim, [facility]; she confirms that the patient was there for short term rehab and not on a bed hold. He was receiving therapy and was not ambulatory. No further details were provided.
Original Note:
Patient from [facility] with Hx recent squamous skin CA with brain mets s/p hemicraniotomy with Dx Acute hypoxic respiratory failure 2/2 Pneumonia. High flow O2. BiPAP. Receiving IVF, IV Amio, IV Abx, IV Keppra, IV Solumedrol, IV
Valproate Sod. Per nurse; lethargic. Seen by can dragger, seen by .
Met with patient, 3 daughters and friend;
the patient resides alone in a third floor apartment in [facility], at [facility], [facility] [address] [facility].
He had been functioning independently until May when he fell and was diagnosed with a brain tumor and had surgery at [facility]. He then went to [place] acute rehab, back to [facility] and then to [facility]. Daughters state patient was unwell for
several days at [facility] before he was sent to .
The family was working with [employer] and the patient had 6 hrs/wk caregiver services through the [employer], mostly providing transport to appointments. He was ineligible for the Waiver program due to being over-income.
DME - RW, commode, shower chair, medic alert
No prior VN
SNF - [facility]
AR - [place]
[facility]
PCP - Lux Elliott
Pharmacy - [facility] [address], [place]
Daughter Sun Lomax is POA.
Daughter Jocelyn here from [place].
Daughter Carlotta here from [place].
Plan TBD.
--- NOTE | 2024-09-20 15:57 | W.PN.UPDATE ---
Update Note
Progress Note Update
As per further conversation with family: deterioration started 4 days before admission
As per section cutter - outpatient neurologist concerned for recurrent cardioembolic strokes - will do MRI brain when off BiPAP
Neurology consult placed
US RUQ shouwed prominent gall bladder but without cholelithiasis, signs of scute cholecystitis or CBD dilation
Urinary bladder with urine, retention noted with concern for UTI - cont Abx and straight cath. If still cannot urinate - will place bazan
--- NOTE | 2024-09-20 17:27 | PTCARENOTE ---
Patient bladder scanned for 462 cc due to decreased urine output. Dr. Lawrence made aware. Le catheter placed per physician order. Cloudy emily urine.
--- NOTE | 2024-09-20 17:29 | PTCARENOTE ---
Patient AOxO. Patient occasionally opens eyes to verbal stimuli. Patient grasps hand on command. Patient is very lethargic and drowsy. Patient on BiPAP being weaned by RT. Current settings for BiPAP is 12/5 with SpO2 95%. Diminished lung sounds
throughout. V-paced with BBB and first degree on monitor. BP stable. Le draining emily cloudy urine. Smear of brown BM during shift. Patient NPO throughout shift. IVF running per order. Q2 turns. Seizure precautions maintained. Plan of care
discussed with patients daughters throughout shift. Family at bedside throughout shift. Bed alarm on and audible. Call kurtz within reach, bed in lowest position, and bed of wheels locked.
[2024-09-20 17:40] LABS: Depakane 69.9 ug/ml (50.0-120.0)
--- NOTE | 2024-09-20 17:42 | CON.ONC ---
Consultation
-
Date Consultation Requested: 09/20/24
Date Consultation Performed: 09/20/24
Requesting Provider: Jase Lawrence
Performing Provider: danya
Reason for Consultation: hx COMPRESSOR BATTERY PELLETS mets
Impression
Impression
unknown primary w/ hx of SC CA IHC/NGS with progression postop complicated by seizures/ nonambulatory following 2nd radiation course ( gamma knife f/b WBRT)
Plan
Plan
Discussed appropriateness of hospice care given failing health issues and unlikely recovery to a meaningful PS to benefit from ICI therapies
Patient History
History of Present Illness
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 He was in rehab following surgery then following retreatment for which he declined rapidly w/ change in MS associated
with hypoglycemia/ hypoxia and prompting ER evaluation with progression to need for high amanda oxygen that would progress to need for intubation for which with pulmonary consultation and review of data with family appropriately recommended hospice
care and now he is DNR/DNI
Past-Medical/Surgical History
SCCA skin facial; renal mass right 5cm; postop subdural hematomas; CVA;DJD; COPD
Patient Medication
�Medication �Instructions �Recorded �Confirmed �Last Taken �Type
acetaminophen 325 mg tablet 650 mg PO Q6HPRN PRN mild 06/11/24 09/19/24 Unknown History
(Tylenol) pain/temp>100
omeprazole magnesium 20 mg 20 mg PO DAILY GERD #0 tabs 06/27/24 09/19/24 10/20/20 08:00 Rx
tablet,delayed release (Prilosec
OTC)
spironolactone 25 mg tablet 12.5 mg PO DAILY Fluid 08/18/24 09/19/24 Unknown History
Retention/Swelling
Lactobac no.2-Bifidobac no.1-S. 1 cap PO BID Supplement 09/19/24 09/19/24 Unknown History
thermo 112.5 billion cell capsule
(Visbiome)
amiodarone 200 mg tablet 200 mg PO DAILY AFIB 09/19/24 09/19/24 Unknown History
amlodipine 5 mg tablet 7.5 mg PO DAILY Blood Pressure 09/19/24 09/19/24 Unknown History
ammonium lactate 12 % lotion 1 applic topical HS Skin Issues 09/19/24 09/19/24 Unknown History
amoxicillin 500 mg-potassium 1 tab PO Q8H Infection 09/19/24 09/19/24 Unknown History
clavulanate 125 mg tablet
(Augmentin)
atorvastatin 80 mg tablet 80 mg PO HS High Cholesterol 09/19/24 09/19/24 Unknown History
bisacodyl 10 mg rectal suppository 10 mg MT DAILYPRN PRN MOM 09/19/24 09/19/24 Unknown History
(Dulcolax (bisacodyl)) ineffective
carvedilol 6.25 mg tablet 6.25 mg PO BID Blood Pressure 09/19/24 09/19/24 Unknown History
glimepiride 2 mg tablet 2 mg PO BID Diabetes 09/19/24 09/19/24 Unknown History
guaifenesin 200 mg tablet 600 mg PO BID Congestion 09/19/24 09/19/24 Unknown History
heparin (porcine) 5,000 unit/mL 5,000 unit SC Q8H Blood Clot 09/19/24 09/19/24 Unknown History
injection solution Prevention/Tx
insulin lispro 100 unit/mL 1 sliding scale dose SC Q6H 09/19/24 09/19/24 Unknown History
subcutaneous pen Diabetes
ipratropium 0.5 mg-albuterol 3 mg 3 ml inhalation R BID 09/19/24 09/19/24 Unknown History
(2.5 mg base)/3 mL nebulization Lung/Breathing Issues
soln
levetiracetam 750 mg tablet 1,500 mg PO BID Seizures 09/19/24 09/19/24 Unknown History
(Keppra)
magnesium hydroxide 400 mg/5 mL 30 ml PO [id number] PRN constipation 09/19/24 09/19/24 Unknown History
oral suspension (Milk of Magnesia)
melatonin 3 mg tablet 6 mg PO HS Sleep 09/19/24 09/19/24 Unknown History
metformin 1,000 mg tablet 1,000 mg PO BID Diabetes 09/19/24 09/19/24 Unknown History
saxagliptin 2.5 mg tablet 2.5 mg PO DAILY Diabetes 09/19/24 09/19/24 Unknown History
sennosides 8.6 mg tablet (senna) 8.6 mg PO BID Constipation 09/19/24 09/19/24 Unknown History
sodium phosphates 19 gram-7 118 ml MT DAILYPRN PRN dolcolax 09/19/24 09/19/24 Unknown History
gram/118 mL enema (Fleet Enema) ineffective
tamsulosin 0.4 mg capsule (Flomax) 0.4 mg PO HS Urinary Issue 09/19/24 09/19/24 Unknown History
thiamine HCl (vitamin B1) 100 mg 100 mg PO DAILY Supplement 09/19/24 09/19/24 Unknown History
tablet
valproic acid (as sodium salt) 250 400 mg PO Q6H Seizures 09/19/24 09/19/24 Unknown History
mg/5 mL oral solution
Active Medications
Generic Name Dose Route Start Last Admin
Trade Name Freq PRN Reason Stop Dose Admin
Acetaminophen 650 mg 09/20/24 04:24
Acetaminophen 650 Mg Rectal Suppository RECTAL 10/18/24 04:23
Q4HPRN PRN
mild pain/ESPINOSA/temp> 100.4F
Albuterol/Ipratropium 3 ml 09/20/24 04:24
Ipratropium 0.5/Albuterol 3 Mg (3 Ml Ampul) INH
R Q4HPRN PRN
shortness of breath
Protocol
Albuterol/Ipratropium 3 ml 09/20/24 12:00 09/20/24 15:31
Ipratropium 0.5/Albuterol 3 Mg (3 Ml Ampul) INH 3 ml
R QID GISELA Administration
Protocol
Amlodipine Besylate 7.5 mg 09/20/24 08:00 09/20/24 07:35
Amlodipine 5 Mg Tablet PO 10/18/24 07:59 Not Given
DAILY GISELA
Atorvastatin Calcium 80 mg 09/20/24 22:00
Atorvastatin (Lipitor) 80 Mg Tablet PO 10/18/24 21:59
HS GISELA
Carvedilol 6.25 mg 09/20/24 08:00 09/20/24 07:35
Carvedilol 6.25 Mg Tablet PO 10/18/24 07:59 Not Given
BID GISELA
Dextrose 12.5 grams 09/20/24 04:24
Dextrose 50% (0.5 Grams/Ml) 50 Ml Syringe IV 10/18/24 04:23
[id number] PRN
hypoglycemia
Protocol
Glucagon 1 mg 09/20/24 04:24
Glucagon 1 Mg Vial IM 10/18/24 04:23
PRN PRN
hypoglycemia
Protocol
Valproate Sodium 400 mg/ 54 mls @ 55 mls/hr 09/20/24 00:00 09/20/24 17:37
Sodium Chloride IV 10/18/24 00:00 54 mls
Q6H GISELA Administration
Doxycycline Hyclate 100 mg/ 260 mls @ 260 mls/hr 09/19/24 22:00 09/20/24 12:14
Sodium Chloride IV 260 mls
Q12H GISELA Administration
Amiodarone HCl 200 mg/ 104 mls @ 208 mls/hr 09/20/24 09:00 09/20/24 10:07
Dextrose IV 10/18/24 08:59 104 mls
Q24H GISELA Administration
Piperacillin Sod/Tazobactam Sod 3.375 gram in 50 mls @ 100 mls/hr 09/20/24 10:00 09/20/24 15:30
Zosyn IV 50 mls
Q6H GISELA Administration
Vancomycin HCl 1,250 mg/ 275 mls @ 183.33 mls/hr 09/21/24 06:00
Sodium Chloride IV
DAILY@0600 GISELA
Protocol
Dextrose/Sodium Chloride 1,000 mls @ 75 mls/hr 09/20/24 10:00 09/20/24 10:41
D5/0.9% Sodium Chloride IV 1,000 mls
.[id number] GISELA Administration
Insulin Aspart 0 units 09/20/24 08:00 09/20/24 12:00
Insulin Aspart Low Resistance 300 Units/3 Ml Pen.Injctr SC 10/18/24 07:59 Not Given
Q6 GISELA
Protocol
Lactobacillus/Bifidobacterium 1 cap 09/20/24 08:00 09/20/24 07:36
Lactobac/Bifidobac (Visbiome) PO 10/18/24 07:59 Not Given
BID GISELA
Levetiracetam 1,500 mg 09/19/24 22:00 09/20/24 07:41
Levetiracetam (100 Mg/Ml) 500 Mg/5 Ml Vial IV 10/17/24 21:59 1,500 mg
Q12 GISELA Administration
Methylprednisolone Sodium Succinate 40 mg 09/20/24 20:00
Methylprednisolone Pf 40 Mg/Ml Vial IV 10/18/24 19:59
Q12 GISELA
Sennosides 8.6 mg 09/20/24 08:00 09/20/24 07:36
Sennosides (Senokot) 8.6 Mg Tablet PO 10/18/24 07:59 Not Given
BID GISELA
Sodium Chloride 0 flush 09/19/24 22:00
Sodium Chloride 0.9% (Flush) Syringe IV 10/17/24 21:59
PER PROTOCOL GISELA
Tamsulosin HCl 0.4 mg 09/20/24 22:00
Tamsulosin 0.4 Mg Capsule PO 10/18/24 21:59
HS GISELA
Thiamine HCl 100 mg 09/20/24 08:00 09/20/24 07:36
Thiamine 100 Mg Tablet PO 10/18/24 07:59 Not Given
DAILY GISELA
Review of Systems
-
Unable to obtain full review of systems at this time due to: Patient Non Verbal
History Source: Family
All Other Systems: Reviewed and Negative
Physical Exam
-
General: Comfortable
Cardiology: Normal Sinus Rhythm
Psych: Other (nonconversant)
Labs
Lab Results
WBC 35.8 10^3/uL (4.8-10.8) H 09/20/24 08:33
RBC 4.38 10^6/uL (4.70-6.10) L 09/20/24 08:33
Hgb 14.1 g/dL (13.0-18.0) 09/20/24 08:33
Hct 42.0 % (39.0-52.0) 09/20/24 08:33
MCV 95.9 fL (80.0-94.0) H 09/20/24 08:33
MCH 32.2 pg (27.0-31.0) H 09/20/24 08:33
MCHC 33.6 g/dL (33.0-37.0) 09/20/24 08:33
RDW 19.9 % (11.5-14.5) H 09/20/24 08:33
Plt Count 188 10^3/uL (130-400) 09/20/24 08:33
MPV 9.0 fL (7.4-10.4) 09/20/24 08:33
Abs Immat Gran (auto) 1.5 10^3/uL (0-0.05) H 09/20/24 08:33
Absolute Neuts (auto) 30.9 10^3/uL (1.4-6.5) H 09/20/24 08:33
Absolute Lymphs (auto) 2.1 10^3/uL (1.2-3.4) 09/20/24 08:33
Absolute Monos (auto) 1.3 10^3/uL (0.1-0.6) H 09/20/24 08:33
Absolute Eos (auto) 0.1 10^3/uL (0-0.7) 09/20/24 08:33
Absolute Basos (auto) 0.0 10^3/uL (0-0.2) 09/20/24 08:33
Immature Gran % 4.1 % (0-0.5) H 09/20/24 08:33
Neutrophils % 86.3 % (42.2-75.2) H 09/20/24 08:33
Lymphocytes % 5.8 % (20.5-51.1) L 09/20/24 08:33
Monocytes % 3.5 % (1.7-9.3) 09/20/24 08:33
Eosinophils % 0.2 % (0-6) 09/20/24 08:33
Basophils % 0.1 % (0-2) 09/20/24 08:33
Creatinine 1.1 mg/dL (0.7-1.3) 09/20/24 08:35
Vital Signs
Vital Signs
Temp Pulse Resp BP Pulse Ox
97.4 F 70 14 140/83 99
09/20/24 15:35 09/20/24 15:33 09/20/24 15:33 09/20/24 14:00 09/20/24 15:33
[2024-09-20 17:49] LABS: Glucose - Point of Care 186 mg/dl (70-99)
[2024-09-20 17:49] LABS: Ammonia < 9 umol/L (9-30)
[2024-09-20] MEDS: NOVOLOG FLEXPEN-LOW RESISTANCE 1 UNITS SC (18:15)
[2024-09-20] MEDS: FLOMAX PO (21:29)
[2024-09-20] MEDS: LIPITOR PO (21:29)
[2024-09-20] MEDS: SOLU-MEDROL PF 40 MG IV (21:33)
[2024-09-21] VITALS (14 sets, daily range): BP systolic 95–112; BP diastolic 62–76; PULSE 2–86; BMI 21.9
[2024-09-21] MEDS: NOVOLOG FLEXPEN-LOW RESISTANCE 2 UNITS SC ×2 (02:03→18:13)
--- NOTE | 2024-09-21 02:09 | PTCARENOTE ---
Pt continues on BiPAP, weaned by RT. 95% currently. Pt appears comfortable, but unable to verbally respond to orientation questions. Pt does exhibit hand grasps and is able to follow simple commands. Q2T schedule in place to prevent further skin
breakdown. Le catheter maintained, draining cloudy emily. IVF maintained per MD orders. Maintained strict NPO d/t BiPAP mask in place. Assessment as documented. Bed alarm in place for pt safety.
[2024-09-21 02:13] LABS: Glucose - Point of Care 201 mg/dl (70-99)
[2024-09-21] MEDS: D5/0.9% SODIUM CHLORIDE 1000 IV ×2 (03:00→15:27)
[2024-09-21] MEDS: ZOSYN 50 IV ×4 (03:01→21:53)
[2024-09-21 03:46] LABS: Hematocrit 34.4 % (39.0-52.0); Mean Corp Hgb Conc. 34.9 g/dL (33.0-37.0); Mean Corpuscular Volume 94.5 fL (80.0-94.0); Mean Platelet Volume 9.1 fL (7.4-10.4); Platelet Count 161 10^3/uL (130-400); Red Blood Cell Count 3.64 10^6/uL (4.70-6.10); Red Cell Dist. Width 19.6 % (11.5-14.5); White Blood Cell Count 46.9 10^3/uL (4.8-10.8)
[2024-09-21 03:47] LABS: Ionized Calcium 1.56 mMOL/L (1.15-1.33)
[2024-09-21 04:08] LABS: ALT (SGPT) 23 U/L (0-50); AST (SGOT) 21 U/L (17-59); Albumin 2.6 g/dl (3.5-5.0); Alkaline Phosphatase 132 U/L (38-126); Blood Urea Nitrogen 27 mg/dl (9-20); Calcium 11.4 mg/dl (8.4-10.2); Carbon Dioxide 23 mmol/L (22-30); Chloride 109 mmol/L (98-107); Direct Bilirubin 0.3 mg/dl (0.0-0.4); Estimated Creatinine Clearance 58 ml/min; Glucose 205 mg/dl (70-99); Potassium 4.3 mmol/L (3.5-5.1); Sodium 142 mmol/L (135-145); Total Bilirubin 0.4 mg/dl (0.2-1.3); Total Protein 5.2 g/dl (6.3-8.2); eGFR > 60.00
[2024-09-21 04:25] LABS: Vitamin D, 25-OH*** 25.9 ng/mL (30-80)
[2024-09-21 04:59] LABS: % Lymphocytes 2.6 % (20.5-51.1); % Monocytes 1.2 % (1.7-9.3); % Neutrophils 92.2 % (42.2-75.2); Absolute Immature Granulocytes 1.9 10^3/uL (0-0.05); Absolute Lymphocytes 1.2 10^3/uL (1.2-3.4); Absolute Monocytes 0.6 10^3/uL (0.1-0.6); Absolute Neutrophils 43.2 10^3/uL (1.4-6.5); Nucleated Red Blood Cells % 0 % (-)
[2024-09-21] MEDS: DEPACON 54 MG IV ×3 (05:10→18:12)
[2024-09-21] MEDS: NOVOLOG FLEXPEN-LOW RESISTANCE 1 UNITS SC ×2 (05:42→12:19)
[2024-09-21 05:52] LABS: Glucose - Point of Care 196 mg/dl (70-99)
[2024-09-21] MEDS: VANCOCIN 275 MG IV (06:24)
[2024-09-21] MEDS: VISBIOME PO ×2 (07:29→19:51)
[2024-09-21] MEDS: SENOKOT PO ×2 (07:29→19:50)
[2024-09-21] MEDS: COREG PO ×2 (07:29→19:50)
[2024-09-21] MEDS: DUONEB 3 ML INH ×4 (07:50→18:16)
[2024-09-21] MEDS: KEPPRA 1500 MG IV ×2 (08:36→20:52)
[2024-09-21] MEDS: SOLU-MEDROL PF 40 MG IV (08:42)
--- NOTE | 2024-09-21 08:48 | PHA.VAN.FU ---
Vancomycin Assessment / Plan
- Assessment
Renal Function: Stable
WBC's are: Trending Up (35.8->46.9)
In the past 24 hrs, patient has been: Afebrile
Concomitant Antimicrobials: Doxycycline, Piperacillin/Tazobactam
- Dosing Plan
Continue: Vanco 1250mg Q24H
- Monitoring Plan
No level(s) ordered at this time: Consider in the next few days
- Follow Up
Pharmacy will continue to follow.
Vancomycin Follow UP
- -
Patient Age: 83
Patient Sex: Male
Vancomycin Day #: 2
Indication: Pulmonary/Respiratory
Requesting Provider: Dr. Lawrence
Pertinent Antimicrobial Allergies:
no pertinent antibiotic allergies
Height / Weight:
Height 6 ft
Actual Weight 73.2 kg
Pertinent Past Medical History: metastatic squamous cell
- Vital Signs / Lab Results
Temp Pulse Resp BP Pulse Ox
98.7 F 80 16 112/64 97
09/21/24 07:03 09/21/24 07:53 09/21/24 07:53 09/21/24 06:00 09/21/24 07:53
Lab Results - Hematology
09/19/24 09/20/24 09/20/24
17:14 04:46 08:33
WBC 32.3 H 33.3 H 35.8 H
09/21/24
03:31
WBC 46.9 H*
Lab Results - Chemistry
09/19/24 09/20/24 09/20/24
17:14 04:46 08:35
BUN 23 H 24 H 23 H
Creatinine 1.0 1.0 1.1
Estimated Creat Clear 57 52
Albumin 3.1 L 2.9 L 3.0 L
09/21/24 09/21/24
03:31 06:00
BUN 27 H Cancelled
Creatinine 1.0 Cancelled
Estimated Creat Clear 58 Cancelled
Albumin 2.6 L Cancelled
09/20/24
08:32
Lactic Acid 1.6
Lab Results - Urine
09/20/24
09:19
Urine Nitrite (Reflex) Positive A
Leukocyte Esterase Rfl 1+ A
Ur Squamous Epith Cells 0-2
Microbiology Results
09/20/24 08:39 Nasal Screen MRSA (PCR) - Final
Nose MRSA not detected - performed by PCR methodology.
09/20/24 09:19 Legionella Urinary Antigen - Final
Urine Negative for Legionella pneumophila Serogroup 1 antigen.
A negative result does not rule out the possiblity of
Legionella infection due to other serogroups or species of
Legionella. Clinical correlation is recommended.
Streptococcus pneumoniae Antigen (M - Final
Negative for Streptococcus pneumoniae antigen.
A negative result does not exclude infection with
Streptococcus pneumoniae. Clinical correlation is
recommended.
09/19/24 17:14 Influenza Types A & B (JAYME) - Final
Nasal Swab Negative for Influenza A & B, NAAT
Negative results must be combined with clinical observations
and patient history.
Nucleic Acid Amplification test (NAAT)performed on the
Neohapsis platform.
[2024-09-21] MEDS: VIBRAMYCIN 260 MG IV ×2 (09:52→21:53)
[2024-09-21] MEDS: CORDARONE 104 MG IV (09:53)
[2024-09-21 10:47] LABS: Intact PTH 13.9 pg/ml (13.6-85.8)
[2024-09-21 12:11] LABS: Glucose - Point of Care 199 mg/dl (70-99)
--- NOTE | 2024-09-21 13:30 | W.PN.HOSP.TC ---
Today's Communication/Plan
-
ABG while on NC
MRI brain
cont Abx
pending Ucx
DIscussed in details with family -
Assessment / Plan
Assessment / Plan
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
pneumonia
Patient has complicated recent HX of new diagnosis of brain mass in Jun s/p hemicraniotomy, RT, renal biopsy confirming squamous cell cancer, admission with new onset seizures in [place] additional brain RT discharged from [facility] on September 03 to
[facility] with goal to improve functional status ahead of immunotherapy
As per family - patient was able to eat, talk and interact with them, upon the discharge, but 4 days before this admission became more lethargic, finally found hypoxic and brought to ED.
A/P:
#Acute hypoxic respiratory failure 2/2 possible pneumonia with PMHX of COPD
CT chest on admission without pulmonary embolism, found b/l bibasilar consolidations cannot exclude atelectasis
Serial ABG
wean off O2
Pulm consult
DUonebs
Bcx NTD
sputum Cx
Legionella and S.pneumonia urinary Ag neg
Vanco/DOxy/Zosyn
Wean off steroids (empirically started with PMHX of COPD, however continues without wheezing)
#Acute metabolic encephalopathy
suspect 2/2 hypoxia vs infection
treat underlying cause
EEG with HX of Seizure d/o
MRI brain
#Elevated alk.phos most liekly 2/2 CA
US RUQ: The gallbladder is mildly prominent without sonographic evidence of cholelithiasis, acute cholecystitis or biliary duct dilation
#Acute urinary retention with PMHx of BPH
#Concern for UTI
Cont Abx pending Ucx, Bcx
Le
#Leukemoid reaction
#Pulmonary nodules
#Squamous cell skin CA
#Brain mets s/p resection and RT
Oncology consult: hospice appropriate
CT with postOP changes with possible residual mass with mass effect that decreased from prior
MRI brain as off BiPAP
#Seizure s/o
seizure precautions
cont AED IV
Valproate level WNL, ammonia WNL
neurology consult
#DM type 2 with neuropathy
#Hypoglycemia on admission
D5NS
Insulin SS, accucjhecks, dm diet when more awake
hold glimepiride
#Hypercalcemia 2/2 CA with normal PTH
11.7-11.4 -unlikely to cause AMS
CA induced vs dehydration since was not able to eat for few days
IVF
follow Ca
#CHronic HFrEF
check proBNP
Hx of EF 30%
#Cardiomyopathy s/p ICD and PPM
Echo
#GOC
Discussed with daughters in details - DNR/DNI
Furher GOC depending on progress
As per Oncology: due to low change of meaningful recovery to the condition when can tolerate further CA treatment - recomended hospice
#Essential HTN
#HLD
cont home meds as patient not with hypotension
DVT ppx SCDs
COde DMR until further family discussion
I have spent at least 56min reviewing chart, test results, communication with consultants, family and providing direct patient care
Anticipated Discharge: > 48 hours
Subjective/Interval History
-
Date of Service: September 21, 2024
Objective Data
-
Labs:
Laboratory Results
09/21/24 09/21/24
03:31 06:00
WBC 46.9 H*
Hgb 12.0 L
Hct 34.4 L
Plt Count 161
Sodium 142 Cancelled
Potassium 4.3 Cancelled
Chloride 109 H Cancelled
Carbon Dioxide 23 Cancelled
BUN 27 H Cancelled
Creatinine 1.0 Cancelled
Glucose 205 H Cancelled
Calcium 11.4 H Cancelled
Total Bilirubin 0.4 Cancelled
AST 21 Cancelled
ALT 23 Cancelled
Alkaline Phosphatase 132 H Cancelled
Vital Signs:
Vital Signs
Temp Pulse Resp BP Pulse Ox
98.9 F 79 16 112/64 96
09/21/24 11:10 09/21/24 11:27 09/21/24 11:27 09/21/24 06:00 09/21/24 11:27
I&O
09/20/24 09/21/24 09/22/24
06:59 06:59 06:59
Intake Total 2555 / 2555
Output Total 200 / 200 2950 / 2950
Balance -200 / -200 -395 / -395
Review of Systems
-
Unable to obtain full review of systems at this time due to: Acuity
Physical Exam
-
General: Respiratory Distress and Cachectic
HEENT: Anicteric
Respiratory: Clear to Auscultation; Negative Wheezes or Crackles
GI: Soft, Nontender and Nondistended
Musculoskeletal: No Clubbing, No Cyanosis and No Edema
Neuro: Awake, Alert and Other (poorly verbal)
Psych: Calm
--- NOTE | 2024-09-21 14:09 | CON.NEURO ---
Consultation
Order
Date of Consultation: 09/21/24
Requesting Provider: Jase Lawrence MD
Reason for Consult: Altered mental status
Neurology Consultation Note.
HPI: This is an 83-year-old man who presented to [facility] on September 19, 2024 with acute on chronic respiratory failure. Neurology consultation was requested for an evaluation and management of encephalopathy.
PDMP: Alprazolam 0.530 tabs filled in on 08/15/2024.
Labs: WBCs 30.8�46.9, hemoglobin�12.0, platelets�161, normal sodium, calcium�11.4, normal CK, Depakote level, ammonia, lactic acid, vitamin D�25.9
CT head wo contrast(09/19/2024) -Postoperative changes of right parietal craniotomy with an underlying heterogeneous operative bed which may represent an element of evolving postoperative change or residual mass. There are bilateral holohemispheric
mixed density extra-axial collection. There are areas of hyperdensity within the collections for which a small acute on chronic element cannot be excluded. There is associated mass effect on the subjacent parenchyma.
Routine EEG(09/20/2024)-no evidence of epileptiform abnormalities
PMH: Right parietal hemorrhagic lesion(s/p WBR), history of strokes ([facility]), stage IV SSC, CAD, HTN, DLP, DM, GERD, CHF, L4/5 spinal stenosis, anemia
PSH: Right parietal craniotomy, AICD, PTCI.
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
FH: Father�gastric cancer, mother�coronary disease,
All: Thiopental
ROS: Limited due to encephalopathy.
General: In no acute distress.
Cardio: Regular rate and rhythm without murmur. Extremities are without cyanosis or edema.
Neuro:
Mental Status: Somnolent, requires constant verbal and tactile stimulation to stay awake. Oriented to name only. Follows simple requests intermittently. Nonfluent.
Cranial Nerves: Pupils are equally round, surgical. Horizontal EOMs full. Blink to threat on the right. Bilateral ptosis, no nystagmus. No clear facial weakness hypophonic.
Motor: Slowly drifts both arms to bed, minimal movements in lower extremities within bed plane.
Reflexes: Positive for grasp on the left
Sensory: Limited due to poor attention
Coordination: No tremors myoclonic movements.
Gait: deferred
Assessment and Plan:
I. Multifactorial encephalopathy (vascular, hypercalcemia, infectious, neoplastic)
II. Acute/subacute right-sided and chronic L SDH hematomas with mass effect on the adjacent frontoparietal lobes . Spontaneous?
III. [employer] metastatic disease. Right parietal hemorrhagic mass s/p resection and whole brain radiation
IV. Stage IV SSC. Hypercalcemia
. 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 Off Eliquis.
- Continue Telemetry monitoring
- Seizure and aspiration precautions
- Brain MRI with and without sendy
- Continue valproic acid to 400 mg every 6 hours and Keppra 1500 mg twice daily
- Please obtain medical records from [facility]
- Plan to start aspirin for secondary stroke prevention based on brain MRI results
- DVT prophylaxis.
- SCDs/TEDs
- Case was discussed with patient's daughter and ex-.
I personally reviewed all radiology and labs along with past medical records pertinent to current medical problems. Total time spent in patient care is 60 minutes.
Thank you for allowing us to participate in the care of this patient. We will continue to follow. Please do not hesitate to contact us with any questions or concerns.
Subjective/Objective
Subjective Data
Date of Service: September 21, 2024
Objective Data
Vital Signs
Temp Pulse Resp BP Pulse Ox
37.2 C 79 16 112/64 96
09/21/24 11:10 09/21/24 11:27 09/21/24 11:27 09/21/24 06:00 09/21/24 11:27
Lab Results
09/21/24 03:31
09/21/24 06:00
PT 13.5 Sec (11.4-14.6) 09/20/24 08:35
INR 1.00 09/20/24 08:35
APTT 33.0 Sec (23.4-35.0) 09/20/24 08:35
Sodium Cancelled 09/21/24 06:00
Potassium Cancelled 09/21/24 06:00
BUN Cancelled 09/21/24 06:00
Glucose Cancelled 09/21/24 06:00
Calcium Cancelled 09/21/24 06:00
Enq-L-Kjcimkfauqi Pept 504 pg/ml 09/20/24 08:34
Patient Allergies
thiopental Allergy (Verified 09/19/24 22:07)
stopped breathing
Medications
-
Active Medications
Generic Name Dose Route Start Last Admin
Trade Name Freq PRN Reason Stop Dose Admin
Acetaminophen 650 mg 09/20/24 04:24
Acetaminophen 650 Mg Rectal Suppository RECTAL 10/18/24 04:23
Q4HPRN PRN
mild pain/ESPINOSA/temp> 100.4F
Albuterol/Ipratropium 3 ml 09/20/24 04:24
Ipratropium 0.5/Albuterol 3 Mg (3 Ml Ampul) INH
R Q4HPRN PRN
shortness of breath
Protocol
Albuterol/Ipratropium 3 ml 09/20/24 12:00 09/21/24 11:26
Ipratropium 0.5/Albuterol 3 Mg (3 Ml Ampul) INH 3 ml
R QID GISELA Administration
Protocol
Amlodipine Besylate 7.5 mg 09/20/24 08:00 09/21/24 07:29
Amlodipine 5 Mg Tablet PO 10/18/24 07:59 Not Given
DAILY GISELA
Atorvastatin Calcium 80 mg 09/20/24 22:00 09/20/24 21:29
Atorvastatin (Lipitor) 80 Mg Tablet PO 10/18/24 21:59 Not Given
HS GISELA
Carvedilol 6.25 mg 09/20/24 08:00 09/21/24 07:29
Carvedilol 6.25 Mg Tablet PO 10/18/24 07:59 Not Given
BID GISELA
Dextrose 12.5 grams 09/20/24 04:24
Dextrose 50% (0.5 Grams/Ml) 50 Ml Syringe IV 10/18/24 04:23
[id number] PRN
hypoglycemia
Protocol
Glucagon 1 mg 09/20/24 04:24
Glucagon 1 Mg Vial IM 10/18/24 04:23
PRN PRN
hypoglycemia
Protocol
Valproate Sodium 400 mg/ 54 mls @ 55 mls/hr 09/20/24 00:00 09/21/24 11:35
Sodium Chloride IV 10/18/24 00:00 54 mls
Q6H GISELA Administration
Doxycycline Hyclate 100 mg/ 260 mls @ 260 mls/hr 09/19/24 22:00 09/21/24 09:52
Sodium Chloride IV 260 mls
Q12H GISELA Administration
Amiodarone HCl 200 mg/ 104 mls @ 208 mls/hr 09/20/24 09:00 09/21/24 09:53
Dextrose IV 10/18/24 08:59 104 mls
Q24H GISELA Administration
Piperacillin Sod/Tazobactam Sod 3.375 gram in 50 mls @ 100 mls/hr 09/20/24 10:00 09/21/24 11:33
Zosyn IV 50 mls
Q6H GISELA Administration
Vancomycin HCl 1,250 mg/ 275 mls @ 183.33 mls/hr 09/21/24 06:00 09/21/24 06:24
Sodium Chloride IV 275 mls
DAILY@0600 GISELA Administration
Protocol
Dextrose/Sodium Chloride 1,000 mls @ 100 mls/hr 09/20/24 10:00 09/21/24 03:00
D5/0.9% Sodium Chloride IV 1,000 mls
.Q10H GISELA Administration
Insulin Aspart 0 units 09/20/24 08:00 09/21/24 12:19
Insulin Aspart Low Resistance 300 Units/3 Ml Pen.Injctr SC 10/18/24 07:59 1 units
Q6 GISELA Administration
Protocol
Lactobacillus/Bifidobacterium 1 cap 09/20/24 08:00 09/21/24 07:29
Lactobac/Bifidobac (Visbiome) PO 10/18/24 07:59 Not Given
BID GISELA
Levetiracetam 1,500 mg 09/19/24 22:00 09/21/24 08:36
Levetiracetam (100 Mg/Ml) 500 Mg/5 Ml Vial IV 10/17/24 21:59 1,500 mg
Q12 GISELA Administration
Methylprednisolone Sodium Succinate 40 mg 09/22/24 08:00
Methylprednisolone Pf 40 Mg/Ml Vial IV 10/20/24 07:59
DAILY GISELA
Sennosides 8.6 mg 09/20/24 08:00 09/21/24 07:29
Sennosides (Senokot) 8.6 Mg Tablet PO 10/18/24 07:59 Not Given
BID GISELA
Sodium Chloride 0 flush 09/19/24 22:00
Sodium Chloride 0.9% (Flush) Syringe IV 10/17/24 21:59
PER PROTOCOL GISELA
Tamsulosin HCl 0.4 mg 09/20/24 22:00 09/20/24 21:29
Tamsulosin 0.4 Mg Capsule PO 10/18/24 21:59 Not Given
HS GISELA
Thiamine HCl 100 mg 09/20/24 08:00 09/21/24 07:29
Thiamine 100 Mg Tablet PO 10/18/24 07:59 Not Given
DAILY GISELA
Home Medications
�Medication �Instructions �Recorded
acetaminophen 325 mg tablet 650 mg PO Q6HPRN PRN mild 06/11/24
(Tylenol) pain/temp>100
omeprazole magnesium 20 mg 20 mg PO DAILY GERD #0 tabs 06/27/24
tablet,delayed release (Prilosec
OTC)
spironolactone 25 mg tablet 12.5 mg PO DAILY Fluid 08/18/24
Retention/Swelling
Lactobac no.2-Bifidobac no.1-S. 1 cap PO BID Supplement 09/19/24
thermo 112.5 billion cell capsule
(Visbiome)
amiodarone 200 mg tablet 200 mg PO DAILY AFIB 09/19/24
amlodipine 5 mg tablet 7.5 mg PO DAILY Blood Pressure 09/19/24
ammonium lactate 12 % lotion 1 applic topical HS Skin Issues 09/19/24
amoxicillin 500 mg-potassium 1 tab PO Q8H Infection 09/19/24
clavulanate 125 mg tablet
(Augmentin)
atorvastatin 80 mg tablet 80 mg PO HS High Cholesterol 09/19/24
bisacodyl 10 mg rectal suppository 10 mg WV DAILYPRN PRN MOM 09/19/24
(Dulcolax (bisacodyl)) ineffective
carvedilol 6.25 mg tablet 6.25 mg PO BID Blood Pressure 09/19/24
glimepiride 2 mg tablet 2 mg PO BID Diabetes 09/19/24
guaifenesin 200 mg tablet 600 mg PO BID Congestion 09/19/24
heparin (porcine) 5,000 unit/mL 5,000 unit SC Q8H Blood Clot 09/19/24
injection solution Prevention/Tx
insulin lispro 100 unit/mL 1 sliding scale dose SC Q6H 09/19/24
subcutaneous pen Diabetes
ipratropium 0.5 mg-albuterol 3 mg 3 ml inhalation R BID 09/19/24
(2.5 mg base)/3 mL nebulization Lung/Breathing Issues
soln
levetiracetam 750 mg tablet 1,500 mg PO BID Seizures 09/19/24
(Keppra)
magnesium hydroxide 400 mg/5 mL 30 ml PO [id number] PRN constipation 09/19/24
oral suspension (Milk of Magnesia)
melatonin 3 mg tablet 6 mg PO HS Sleep 09/19/24
metformin 1,000 mg tablet 1,000 mg PO BID Diabetes 09/19/24
saxagliptin 2.5 mg tablet 2.5 mg PO DAILY Diabetes 09/19/24
sennosides 8.6 mg tablet (senna) 8.6 mg PO BID Constipation 09/19/24
sodium phosphates 19 gram-7 118 ml WV DAILYPRN PRN dolcolax 09/19/24
gram/118 mL enema (Fleet Enema) ineffective
tamsulosin 0.4 mg capsule (Flomax) 0.4 mg PO HS Urinary Issue 09/19/24
thiamine HCl (vitamin B1) 100 mg 100 mg PO DAILY Supplement 09/19/24
tablet
valproic acid (as sodium salt) 250 400 mg PO Q6H Seizures 09/19/24
mg/5 mL oral solution
Vital Signs and Labs
-
Vital Signs and Labs:
Vital Signs
Temp Pulse Resp BP Pulse Ox
37.2 C 79 16 112/64 96
09/21/24 11:10 09/21/24 11:27 09/21/24 11:27 09/21/24 06:00 09/21/24 11:27
Lab Results
09/21/24 03:31
09/21/24 06:00
PT 13.5 Sec (11.4-14.6) 09/20/24 08:35
INR 1.00 09/20/24 08:35
APTT 33.0 Sec (23.4-35.0) 09/20/24 08:35
Sodium Cancelled 09/21/24 06:00
Potassium Cancelled 09/21/24 06:00
BUN Cancelled 09/21/24 06:00
Glucose Cancelled 09/21/24 06:00
Calcium Cancelled 09/21/24 06:00
Koq-Y-Slwyhrgpapx Pept 504 pg/ml 09/20/24 08:34
Medications
-
Medications:
Generic Name Dose Route Start Last Admin
Trade Name Freq PRN Reason Stop Dose Admin
Acetaminophen 650 mg 09/20/24 04:24
Acetaminophen 650 Mg Rectal Suppository RECTAL 10/18/24 04:23
Q4HPRN PRN
mild pain/ESPINOSA/temp> 100.4F
Albuterol/Ipratropium 3 ml 09/20/24 04:24
Ipratropium 0.5/Albuterol 3 Mg (3 Ml Ampul) INH
R Q4HPRN PRN
shortness of breath
Protocol
Albuterol/Ipratropium 3 ml 09/20/24 12:00 09/21/24 11:26
Ipratropium 0.5/Albuterol 3 Mg (3 Ml Ampul) INH 3 ml
R QID GISELA Administration
Protocol
Amlodipine Besylate 7.5 mg 09/20/24 08:00 09/21/24 07:29
Amlodipine 5 Mg Tablet PO 10/18/24 07:59 Not Given
DAILY GISELA
Atorvastatin Calcium 80 mg 09/20/24 22:00 09/20/24 21:29
Atorvastatin (Lipitor) 80 Mg Tablet PO 10/18/24 21:59 Not Given
HS GISELA
Carvedilol 6.25 mg 09/20/24 08:00 09/21/24 07:29
Carvedilol 6.25 Mg Tablet PO 10/18/24 07:59 Not Given
BID GISELA
Dextrose 12.5 grams 09/20/24 04:24
Dextrose 50% (0.5 Grams/Ml) 50 Ml Syringe IV 10/18/24 04:23
[id number] PRN
hypoglycemia
Protocol
Glucagon 1 mg 09/20/24 04:24
Glucagon 1 Mg Vial IM 10/18/24 04:23
PRN PRN
hypoglycemia
Protocol
Valproate Sodium 400 mg/ 54 mls @ 55 mls/hr 09/20/24 00:00 09/21/24 11:35
Sodium Chloride IV 10/18/24 00:00 54 mls
Q6H GISELA Administration
Doxycycline Hyclate 100 mg/ 260 mls @ 260 mls/hr 09/19/24 22:00 09/21/24 09:52
Sodium Chloride IV 260 mls
Q12H GISELA Administration
Amiodarone HCl 200 mg/ 104 mls @ 208 mls/hr 09/20/24 09:00 09/21/24 09:53
Dextrose IV 10/18/24 08:59 104 mls
Q24H GISELA Administration
Piperacillin Sod/Tazobactam Sod 3.375 gram in 50 mls @ 100 mls/hr 09/20/24 10:00 09/21/24 11:33
Zosyn IV 50 mls
Q6H GISELA Administration
Vancomycin HCl 1,250 mg/ 275 mls @ 183.33 mls/hr 09/21/24 06:00 09/21/24 06:24
Sodium Chloride IV 275 mls
DAILY@0600 GISELA Administration
Protocol
Dextrose/Sodium Chloride 1,000 mls @ 100 mls/hr 09/20/24 10:00 09/21/24 03:00
D5/0.9% Sodium Chloride IV 1,000 mls
.Q10H GISELA Administration
Insulin Aspart 0 units 09/20/24 08:00 09/21/24 12:19
Insulin Aspart Low Resistance 300 Units/3 Ml Pen.Injctr SC 10/18/24 07:59 1 units
Q6 GISELA Administration
Protocol
Lactobacillus/Bifidobacterium 1 cap 09/20/24 08:00 09/21/24 07:29
Lactobac/Bifidobac (Visbiome) PO 10/18/24 07:59 Not Given
BID GISELA
Levetiracetam 1,500 mg 09/19/24 22:00 09/21/24 08:36
Levetiracetam (100 Mg/Ml) 500 Mg/5 Ml Vial IV 10/17/24 21:59 1,500 mg
Q12 GISELA Administration
Methylprednisolone Sodium Succinate 40 mg 09/22/24 08:00
Methylprednisolone Pf 40 Mg/Ml Vial IV 10/20/24 07:59
DAILY GISELA
Sennosides 8.6 mg 09/20/24 08:00 09/21/24 07:29
Sennosides (Senokot) 8.6 Mg Tablet PO 10/18/24 07:59 Not Given
BID GIESLA
Sodium Chloride 0 flush 09/19/24 22:00
Sodium Chloride 0.9% (Flush) Syringe IV 10/17/24 21:59
PER PROTOCOL GISELA
Tamsulosin HCl 0.4 mg 09/20/24 22:00 09/20/24 21:29
Tamsulosin 0.4 Mg Capsule PO 10/18/24 21:59 Not Given
HS GISELA
Thiamine HCl 100 mg 09/20/24 08:00 09/21/24 07:29
Thiamine 100 Mg Tablet PO 10/18/24 07:59 Not Given
DAILY GISELA
Home Medications
-
Home Medications
acetaminophen 325 mg tablet (Tylenol) 650 mg PO Q6HPRN PRN mild pain/temp>100 06/11/24
omeprazole magnesium 20 mg tablet,delayed release (Prilosec OTC) 20 mg PO DAILY GERD #0 tabs 06/27/24
spironolactone 25 mg tablet 12.5 mg PO DAILY Fluid Retention/Swelling 08/18/24
Lactobac no.2-Bifidobac no.1-S. thermo 112.5 billion cell capsule (Visbiome) 1 cap PO BID Supplement 09/19/24
amiodarone 200 mg tablet 200 mg PO DAILY AFIB 09/19/24
amlodipine 5 mg tablet 7.5 mg PO DAILY Blood Pressure 09/19/24
ammonium lactate 12 % lotion 1 applic topical HS Skin Issues 09/19/24
amoxicillin 500 mg-potassium clavulanate 125 mg tablet (Augmentin) 1 tab PO Q8H Infection 09/19/24
atorvastatin 80 mg tablet 80 mg PO HS High Cholesterol 09/19/24
bisacodyl 10 mg rectal suppository (Dulcolax (bisacodyl)) 10 mg WV DAILYPRN PRN MOM ineffective 09/19/24
carvedilol 6.25 mg tablet 6.25 mg PO BID Blood Pressure 09/19/24
glimepiride 2 mg tablet 2 mg PO BID Diabetes 09/19/24
guaifenesin 200 mg tablet 600 mg PO BID Congestion 09/19/24
heparin (porcine) 5,000 unit/mL injection solution 5,000 unit SC Q8H Blood Clot Prevention/Tx 09/19/24
insulin lispro 100 unit/mL subcutaneous pen 1 sliding scale dose SC Q6H Diabetes 09/19/24
ipratropium 0.5 mg-albuterol 3 mg (2.5 mg base)/3 mL nebulization soln 3 ml inhalation R BID Lung/Breathing Issues 09/19/24
levetiracetam 750 mg tablet (Keppra) 1,500 mg PO BID Seizures 09/19/24
magnesium hydroxide 400 mg/5 mL oral suspension (Milk of Magnesia) 30 ml PO [id number] PRN constipation 09/19/24
melatonin 3 mg tablet 6 mg PO HS Sleep 09/19/24
metformin 1,000 mg tablet 1,000 mg PO BID Diabetes 09/19/24
saxagliptin 2.5 mg tablet 2.5 mg PO DAILY Diabetes 09/19/24
sennosides 8.6 mg tablet (senna) 8.6 mg PO BID Constipation 09/19/24
sodium phosphates 19 gram-7 gram/118 mL enema (Fleet Enema) 118 ml WV DAILYPRN PRN dolcolax ineffective 09/19/24
tamsulosin 0.4 mg capsule (Flomax) 0.4 mg PO HS Urinary Issue 09/19/24
thiamine HCl (vitamin B1) 100 mg tablet 100 mg PO DAILY Supplement 09/19/24
valproic acid (as sodium salt) 250 mg/5 mL oral solution 400 mg PO Q6H Seizures 09/19/24
[2024-09-21 14:59] LABS: Creatine Phosphokinase < 20 U/L (55-170)
--- NOTE | 2024-09-21 16:20 | W.PN.PUL3 ---
Today's Communication / Plan
-
Broad-spectrum antibiotics
Follow-up urine culture sensitivities
Aspiration precautions
Continue midflow nasal cannula with use of BiPAP if needed for increased work of breathing
Maintain SpO2 88-95%
DuoNebs
Steroids were Solu-Medrol with rapid wean
Amiodarone drip
Keep NPO until seen by [employer]
Guarded prognosis - hospice appropriate
Pulmonary service will continue to briefly follow along
Assessment
-
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
02/2014) who presented from [facility] due to altered mental status. Family has reported the patient's been declining lately and had a recent diagnosis of pneumonia. Reportedly, patient's blood sugar was 40 for EMS, and he was given 400 cc
of D10. He was extremely lethargic in the ER. His , daughter and granddaughter were present at bedside. Initial vitals showed he was afebrile to 98.8 �F, pulse rate 82, respiratory rate 22, BP 124/82 and saturating 88% on room air, which
improved to 90% with 4 L/min nasal cannula. Initial labs showed significant leukocytosis to 32.3, respiratory alkalosis with pH 7.53, pCO2: 33, and hypoxia with PO2: 64. Initial glucose 221, + calcium level 11.4. Flu swab for A/B was negative.
In the ER he was given cefepime, DuoNebs + IVF with 1 L NS 0.9% and then was trialed on high flow nasal cannula due to worsening hypoxia. He continued to desaturate despite being on high flow nasal cannula and nonrebreather, and was transition to
BiPAP on 05/09 cmH2O bled with 15 L/min and was admitted to the IMU for further care. This morning he continues to be minimally responsive and hypoxic, and [employer] services consulted for additional management/recommendations.
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
s/p SRS (Jun-July + August 2024 - [place]), chronic subdural hematomas (bilaterally), right renal mass with Hx of renal Bx on 09/03/2024 showing SCC, ambulatory dysfunction/physical deconditioning, mixed hyperlipidemia, DM type II, CAD, ICM/LBBB s/p
BiV-ICD (implanted 02/2014), chronic HFmrEF (TTE from 02/13/2024 showed LVEF 45-50%), nephrolithiasis, chronic lower back pain, Hx of falls (05/2024), reported history of COPD, dysphagia, hypertension, hyperlipidemia, traumatic subdural hemorrhage s/p
fall (06/2023), insomnia, malnutrition
Impression:
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
#Acute respiratory failure with hypoxia likely due to sepsis
#Leukocytosis likely due to sepsis + steroid induced
#Hypercalcemia (seems as if his calcium level has been elevated since 08/18/2024) - this could be paraneoplastic
#DM type II (uncontrolled � HbA1c: 6.9 on 09/20/2024) with hyperglycemia
#Chronic subdural hematomas with persistent mass effect on the adjacent frontoparietal lobes (slightly improved on CT head 09/19/[address] head from 08/18/2024)
#History of skin cancer (BCC and SCC s/p excision)
#Right parietal lobe brain metastasis (first seen on CT head at - 06/03/2024) s/p craniotomy (06/07/2024- path showed metastatic poorly differentiated carcinoma involving the brain) s/p SRS (Jun-July 2024 - [place])
#Exophytic right kidney mass measuring 4.4 x 4.[address] A/P from 08/13/2024, suspicious for cystic RCC
#Bilateral nephrolithiasis
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
#Reported Hx of COPD
#Multiple pulmonary nodules (RUL, MURALI + RML) - all are <6 mm
#CAD s/p stents
#Hx of HFrEF/ICM s/p BiV-ICD (now with improved LVEF to 40-45% from 30%)
Plan:
- Airport Control [employer] services were called on 09/20 due to continued hypoxia with altered mental status with concern for airway protection
- He does have chronic subdural hematomas with history of infarcts suspected to be embolic, possibly due to hypercoagulability of malignancy
- Brain imaging done on 09/19 here at showing continued bilateral mixed density extra�axial collections which have slightly improved compared to last CT head on 08/18/2024, and there is an associated mass effect on the subjacent parenchyma
involving the frontoparietal lobes -perhaps this is contributing most to his current decline
- Blood gas checked on 09/19 and 09/20 showing respiratory alkalosis with significant hypoxia with a increased A-a gradient
- TSH is WNL at 4.25, procal was WNL at 0.2, troponin negative at <0.012, although calcium level is elevated at 11.7
- Continue IVF and continue trending his calcium level + iCa
- Follow up PTHrP
- EEG done on 09/20/2024 was unremarkable; Neuro consulted; given his worsening leukocytosis with AMS, need to consider encephalitis; continue with keppra + valproic acid(home dose)
- Continue broad spectrum Abx (Zosyn, vancomycin, doxycycline) and follow up infectious workup - blood Cx, UCx positive for Enterococcus species -follow-up sensitivities; check a sputum Cx (if a decent sample can be obtained); urine antigens for
legionella + strep pneumonia both negative
- He has had multiple MRIs with most recent one on 07/12/2024 - repeat MRI brain is pending
- Avoid narcotics or any SOCIAL MEDIA COORDINATOR depressant medications as this will only worsen his mental status; if we transition to hospice/comfort care then it would be okay to start narcotics in that scenario
- Unclear what is driving his hypoxia; echo repeated on 09/20/2024 with no obvious shunt seen, with normal RV size and function, although study was very technically limited
- There is no convincing evidence for pneumonia on his CTA chest from 09/19/2024, also no acute PE seen
- He carries a history of COPD, although there is no emphysema seen on recent CTA Chest imaging from 09/19, he is a non-smoker
- No PFTs available for review; keep HOB >30-45� to reduce risk of aspiration
- Maintain SpO2 88-95%, weaning down supplemental O2 flow rate as tolerated
- Continue nebulized bronchodilators QID with prn DuoNebs (not currently bronchospastic)
- Patient is not currently wheezing, and hospitalist started Decadron 6 mg IV q8hr -unclear what the benefit is here considering he is not in a circulatory shock state, does not have severe CAP, and I question the diagnosis of COPD; also absolute
eosinophil count is unimpressive --> will lower steroids to solumedrol 40mg q12hr for now and re-assess tomorrow if still needed
- Maintain MAP>65
- He takes PO amiodarone at home, hence continue amiodarone drip; he will need a PICC line or central line if he continues to remain on amiodarone for >24 hours
- Replete electrolytes with K>4, Mg>2
- Maintain euglycemia with goal BG 140-180
- Trend H/H and transfuse if needed to keep Hb>7g/dL; keep plt>20k, unless there is concern for bleeding then keep plt>50k
- Avoid PO meds for now and keep NPO until mentation hopefully improves
- DVT ppx: SCDs for now, although CT head shows stable chronic subdural hematomas. If H&H remains stable for 1-2 days and he continues to be full medical management, then would start heparin SQ vs LMWH at that time; his outpatient neurologist,
Jonathan Ronquillo, wanted to start Eliquis in the setting of his known ischemic infarcts with the risk of hypercoagulability of malignancy; decision was pending neurosurgery's opinion given his history of chronic subdural hematomas
[facility] discussion - 09/20/2024: Goals of care discussion held with the hospitalist, Dr. Lawrence, myself and patient's daughter, Carlotta. Carlotta says that her and other family members were here in the hospital overnight late yesterday and they had
discussed how he has been declining and decided that they do not want him intubated or to undergo CPR if his heart were to stop. All questions were answered and emotional support was provided. He is hospice appropriate. Would consult hospice and
have them speak to the family.
Pulmonary service will continue to briefly follow along.
Data:
CXR 09/20/2024: Decreased lung volumes without focal airspace disease or overt pulmonary edema. No pneumothorax.
Abdominal US 09/20/2024: The gallbladder is mildly prominent without sonographic evidence of cholelithiasis, acute cholecystitis or biliary duct dilation; Distended urinary bladder with estimated volume of 1354 cc. There is internal debris within the
urinary bladder which can be seen with cystitis. Consider correlation with urinalysis.
CTA Chest 09/19/2024:
1. No evidence of central, lobar or segmental pulmonary embolism.
2. Left greater than right bibasilar consolidations which may represent pneumonia, possible atelectasis.
3. Scattered nodules within the left upper lobe measuring up to 7 mm. This appears similar to prior recent pet/CT however in the setting of malignancy pulmonary metastasis cannot be excluded. Recommend continued follow-up.
CT Head 09/19/2024:
Postoperative changes of right parietal craniotomy with an underlying heterogeneous operative bed which may represent an element of evolving postoperative change or residual mass. There are bilateral holohemispheric mixed density extra-axial
collections which have slightly decreased in size from prior. There are areas of hyperdensity within the collections for which a small acute on chronic element cannot be excluded. There is associated mass effect on the subjacent parenchyma, slightly
decreased from prior. Consider follow-up CT head to ensure stability.
Brain MRI with and without contrast 07/12/2024 (through [place]):
1. Acute/early subacute infarcts within the left occipital lobe and the right periventricular white matter, new since 06/07/2024. One of the new infarcts demonstrates contrast-enhancement, likely slightly older in age. A punctate focus of
enhancement in the left occipital lobe more inferiorly is without definite diffusion restriction, but is favored to also reflect sequelae of subacute ischemia given the interval ischemia in the area. Attention on follow-up imaging is recommended to
assess for appropriate interval evolution.
2. Right craniotomy for resection of right parietal metastasis. Largely stable extra�axial collections overlying the right cerebral convexity. Redemonstrated evolving hemorrhage within the right parietal resection cavity with stable to slight
increase in size of residual viable neoplasm at the superior aspect. Slight increase in surrounding edema, likely related to interval therapy. No significant mass effect.
3. Indeterminate mass in the superior right nasal cavity. Correlation with sinonasal exam is recommended.
Total time spent today was 79 minutes for this encounter. Time includes reviewing laboratory test/imaging results, reviewing pertinent medical records, obtaining and reviewing medical history, performing an appropriate exam, ordering medications,
tests and procedures. Time also includes documentation of this encounter, coordinating patient care and communicating with other healthcare professionals. Total time does not include separately billed tests performed on this date of service.
Subjective Data
-
Date of Service:
Date of Service: September 21, 2024
Chief Complaint: Pulmonary Follow Up
Subjective:
Patient was seen and evaluated today at bedside. Multiple family members at bedside - all questions were answered. Currently on 9 L/min via midflow nasal cannula saturating 93%, heart rate 86 and BP 95/69. He is much more awake today compared to
yesterday, and is even able to speak clearly at times. He has a dry mouth/throat which is impacting his speech. Also drowsy.
Review of Systems
General: Other (Unobtainable given patient's acute clinical status)
Objective Data
Data Reviewed
Vital Signs / I&O / Oxygen:
Vital Signs
Temp Pulse Resp BP Pulse Ox
98.7 F 80 16 112/64 96
09/21/24 07:03 09/21/24 07:53 09/21/24 07:53 09/21/24 06:00 09/21/24 09:47
Intake and Output
09/20/24 09/21/24 09/22/24
06:59 06:59 06:59
Intake Total 2555 / 2555
Output Total 200 / 200 2950 / 2950
Balance -200 / -200 -395 / -395
SaO2 96
Nasal Cannula flow liters per 50
minute
Physical Exam
General: Respiratory Distress (negative), Chills (negative) and Sweats (negative)
HEENT: Normocephalic and Anicteric
Cardiovascular: S1-S2 and Peripheral Edema (+1 lower extremity edema bilaterally)
Respiratory: Wheeze (negative), Crackles (Bibasilar), Rhonchi (negative), Accessory Resp Muscle Use (negative) and Other (Diminished breath sounds bilaterally)
GI: Soft, Non Distended, Non Tender and Normal Bowel Sounds
Neurology: Tremors (negative) and Other (Drowsy at times otherwise he is awake; responds to my questions however speech is incomprehensible)
Skin: Warm, Dry, Cyanosis (negative) and Jaundice (negative)
Labs/Micro/Reports
Lab Data
09/21/24 03:31
09/21/24 06:00
Laboratory Results
09/20/24
13:58
pH 7.41
pCO2 41
pO2 106
HCO3 26.0
O2 Delivery Level
Microbiology
09/20/24 08:36 Blood/Venous Blood Culture - Preliminary
No Growth in 24 hours- Final report to follow
09/20/24 08:36 Blood/Venous Blood Culture - Preliminary
No Growth in 24 hours- Final report to follow
09/20/24 08:39 Nose Nasal Screen MRSA (PCR) - Final
MRSA not detected - performed by PCR methodology.
09/20/24 09:19 Urine Legionella Urinary Antigen - Final
Negative for Legionella pneumophila Serogroup 1 antigen.
A negative result does not rule out the possiblity of
Legionella infection due to other serogroups or species of
Legionella. Clinical correlation is recommended.
09/20/24 09:19 Urine Streptococcus pneumoniae Antigen (M - Final
Negative for Streptococcus pneumoniae antigen.
A negative result does not exclude infection with
Streptococcus pneumoniae. Clinical correlation is
recommended.
09/19/24 17:14 Nasal Swab Influenza Types A & B (JAYME) - Final
Negative for Influenza A & B, NAAT
Negative results must be combined with clinical observations
and patient history.
Nucleic Acid Amplification test (NAAT)performed on the
[employer] platform.
[2024-09-21 18:04] LABS: Glucose - Point of Care 215 mg/dl (70-99)
[2024-09-21] MEDS: LIPITOR PO (21:56)
[2024-09-21] MEDS: FLOMAX PO (21:56)
[2024-09-22] VITALS (19 sets, daily range): BP systolic 78–140; BP diastolic 55–98; PULSE 77; O2SAT 97; BMI 22.2
[2024-09-22 00:06] LABS: Glucose - Point of Care 185 mg/dl (70-99)
[2024-09-22] MEDS: NOVOLOG FLEXPEN-LOW RESISTANCE 1 UNITS SC ×3 (00:15→13:32)
[2024-09-22] MEDS: D5/0.9% SODIUM CHLORIDE 1000 IV ×3 (01:14→21:20)
[2024-09-22] MEDS: DEPACON 54 MG IV ×4 (01:16→17:54)
[2024-09-22] MEDS: ZOSYN 50 IV ×4 (04:25→21:13)
[2024-09-22 04:59] LABS: Hematocrit 34.1 % (39.0-52.0); Hemoglobin 11.6 g/dL (13.0-18.0); Mean Corpuscular Hgb 32.5 pg (27.0-31.0); Mean Corpuscular Volume 95.5 fL (80.0-94.0); Platelet Count 155 10^3/uL (130-400); Red Blood Cell Count 3.57 10^6/uL (4.70-6.10); Red Cell Dist. Width 19.8 % (11.5-14.5); White Blood Cell Count 42.7 10^3/uL (4.8-10.8)
[2024-09-22 05:18] LABS: ALT (SGPT) 21 U/L (0-50); AST (SGOT) 24 U/L (17-59); Albumin 2.5 g/dl (3.5-5.0); Alkaline Phosphatase 131 U/L (38-126); Blood Urea Nitrogen 26 mg/dl (9-20); Calcium 11.2 mg/dl (8.4-10.2); Carbon Dioxide 24 mmol/L (22-30); Chloride 112 mmol/L (98-107); Estimated Creatinine Clearance 65 ml/min; Glucose 155 mg/dl (70-99); Sodium 143 mmol/L (135-145); Total Bilirubin 0.4 mg/dl (0.2-1.3); eGFR > 60.00
[2024-09-22] MEDS: VANCOCIN 275 MG IV (06:08)
--- NOTE | 2024-09-22 06:24 | PTCARENOTE ---
Pt drowsy most of the shift, periods of alertness but is confused and mumbles words. Mouth care done several times, and moist sponges offered frequently. Q2 hour turns. WBC trending down. Remains on 10L mid flow. Mitts placed on patient due to him
removing his oxygen.
[2024-09-22 06:28] LABS: Glucose - Point of Care 160 mg/dl (70-99)
[2024-09-22] MEDS: DUONEB 3 ML INH ×4 (08:12→20:36)
--- NOTE | 2024-09-22 08:12 | PHA.VAN.FU ---
Addendum entered and electronically signed by Jenaro Sandhu [facility] 09/22/24 08:15:
will continue with 1250mg q24h until levels are drawn in next day
Original Note:
Vancomycin Assessment / Plan
- Assessment
Renal Function: Stable
In the past 24 hrs, patient has been: Afebrile
Concomitant Antimicrobials: DOXYCYCLINE, ZOSYN
- Dosing Plan
Adjust Regimen to: 1500MG Q24H
New Regimen Predicts: AUC (516), Peak (38.3), Trough (10.3)
- Monitoring Plan
No level(s) ordered at this time: CONSIDER AT STEADY STATE
- Follow Up
Pharmacy will continue to follow.
Vancomycin Follow UP
- -
Patient Age: 83
Patient Sex: Male
Vancomycin Day #: 3
Indication: Pulmonary/Respiratory
Requesting Provider: Dr. Lawrence
Pertinent Antimicrobial Allergies:
no pertinent antibiotic allergies
Height / Weight:
Height 6 ft
Actual Weight 74.3 kg
Pertinent Past Medical History: metastatic squamous cell
- Vital Signs / Lab Results
Temp Pulse Resp BP Pulse Ox
98.3 F 69 11 115/65 92
09/22/24 03:25 09/22/24 06:00 09/22/24 06:00 09/22/24 06:00 09/22/24 07:37
Lab Results - Hematology
09/19/24 09/20/24 09/20/24
17:14 04:46 08:33
WBC 32.3 H 33.3 H 35.8 H
09/21/24 09/22/24
03:31 04:38
WBC 46.9 H* 42.7 H*
Lab Results - Chemistry
09/19/24 09/20/24 09/20/24
17:14 04:46 08:35
BUN 23 H 24 H 23 H
Creatinine 1.0 1.0 1.1
Estimated Creat Clear 57 52
Albumin 3.1 L 2.9 L 3.0 L
09/21/24 09/21/24 09/22/24
03:31 06:00 04:38
BUN 27 H Cancelled 26 H
Creatinine 1.0 Cancelled 0.9
Estimated Creat Clear 58 Cancelled 65
Albumin 2.6 L Cancelled 2.5 L
09/20/24
08:32
Lactic Acid 1.6
Lab Results - Urine
09/20/24
09:19
Urine Nitrite (Reflex) Positive A
Leukocyte Esterase Rfl 1+ A
Ur Squamous Epith Cells 0-2
Microbiology Results
09/20/24 09:19 Urine Culture - Preliminary
Urine Enterococcus species
09/20/24 08:36 Blood Culture - Preliminary
Blood/Venous No Growth in 24 hours- Final report to follow
09/20/24 08:36 Blood Culture - Preliminary
Blood/Venous No Growth in 24 hours- Final report to follow
09/20/24 08:39 Nasal Screen MRSA (PCR) - Final
Nose MRSA not detected - performed by PCR methodology.
09/20/24 09:19 Legionella Urinary Antigen - Final
Urine Negative for Legionella pneumophila Serogroup 1 antigen.
A negative result does not rule out the possiblity of
Legionella infection due to other serogroups or species of
Legionella. Clinical correlation is recommended.
Streptococcus pneumoniae Antigen (M - Final
Negative for Streptococcus pneumoniae antigen.
A negative result does not exclude infection with
Streptococcus pneumoniae. Clinical correlation is
recommended.
[2024-09-22 08:25] LABS: % Basophils 0.1 % (0-2); % Immature Granulocytes 4.4 % (0-0.5); % Lymphocytes 4.3 % (20.5-51.1); % Monocytes 3.6 % (1.7-9.3); % Neutrophils 87.6 % (42.2-75.2); Absolute Immature Granulocytes 1.9 10^3/uL (0-0.05); Absolute Lymphocytes 1.8 10^3/uL (1.2-3.4); Absolute Monocytes 1.5 10^3/uL (0.1-0.6); Absolute Neutrophils 37.4 10^3/uL (1.4-6.5); Nucleated Red Blood Cells % 0 % (-)
--- NOTE | 2024-09-22 08:28 | W.PN.HOSP.TC ---
Today's Communication/Plan
-
IVF
cont Abx
TIMBER FALLER
wean off O2
MRI brain pending
repeat CT head
Assessment / Plan
Assessment / Plan
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
pneumonia
Patient has complicated recent HX of new diagnosis of brain mass in Jun s/p hemicraniotomy, RT, renal biopsy confirming squamous cell cancer, admission with new onset seizures in [place] additional brain RT discharged from [facility] on September 03 to
[facility] with goal to improve functional status ahead of immunotherapy
As per family - patient was able to eat, talk and interact with them, upon the discharge, but 4 days before this admission became more lethargic, finally found hypoxic and brought to ED.
Mentation improving with hydration and ABx for UTI
A/P:
#Acute hypoxic respiratory failure 2/2 possible pneumonia with PMHX of COPD
CT chest on admission without pulmonary embolism, found b/l bibasilar consolidations cannot exclude atelectasis
Serial ABG
wean off O2
Pulm consult
DUonebs
Bcx NTD
sputum Cx
Legionella and S.pneumonia urinary Ag neg
Vanco/DOxy/Zosyn
Wean off steroids (empirically started with PMHX of COPD, however continues without wheezing)
#Acute metabolic encephalopathy with aphasia
#Leukemoid reaction
#Pulmonary nodules
#Squamous cell skin CA
#Brain mets s/p resection and RT
#Seizure s/o
suspect 2/2 hypoxia with infection
seizure precautions
cont AED IV
Valproate level WNL, ammonia WNL
Oncology consult: hospice appropriate
CT with postOP changes with possible residual mass with mass effect that decreased from prior
MRI brain as off BiPAP
EEG: no epileptiform activity
Neurology consult
#Acute UTI
#Acute urinary retention with PMHx of BPH
Le
COnt Abx pending final Ucx - Enterococcus
Bcx NTD
CT abd from 08/13/24: non-obstructive nephrolithiasis, irregular exophytic mass arising from the medial lower pole of the right kidney without obstruction
No ROCAEL this admission, no concern for acute obstruction at this time
#Elevated alk.phos most likely 2/2 CA
US RUQ: The gallbladder is mildly prominent without sonographic evidence of cholelithiasis, acute cholecystitis or biliary duct dilation
#DM type 2 with neuropathy
#Hypoglycemia on admission
IVF with D5
Insulin SS, accuchecks, dm diet when more awake
hold glimepiride
#Hypercalcemia 2/2 CA with normal PTH
11.7-11.4 -unlikely to cause AMS
CA induced vs dehydration since was not able to eat for few days
IVF
follow Ca
PTHrP pending
#Cardiomyopathy s/p ICD and PPM
#Chronic HFrEF
proBNP 504 - no concern for exacerbation
Hx of EF 30%
Echo was technically difficult: may have been mild global hypokinesis. There is no obvious interatrial communication on 4 different microcavitation 'bubble' studies.
#GOC
Discussed with daughters in details - DNR/DNI
Furher GOC depending on progress
As per Oncology: due to low change of meaningful recovery to the condition when can tolerate further CA treatment - recommended hospice
#Essential HTN
#HLD
cont home meds as patient not with hypotension
DVT ppx SCDs
COde DMR until further family discussion
I have spent at least 56min reviewing chart, test results, communication with consultants, family and providing direct patient care
Anticipated Discharge: > 48 hours
Subjective/Interval History
-
Date of Service: September 22, 2024
Objective Data
-
Labs:
Laboratory Results
09/22/24
04:38
WBC 42.7 H*
Hgb 11.6 L
Hct 34.1 L
Plt Count 155
Sodium 143
Potassium 4.0
Chloride 112 H
Carbon Dioxide 24
BUN 26 H
Creatinine 0.9
Glucose 155 H
Calcium 11.2 H
Total Bilirubin 0.4
AST 24
ALT 21
Alkaline Phosphatase 131 H
Vital Signs:
Vital Signs
Temp Pulse Resp BP Pulse Ox
98.3 F 84 16 115/65 93
09/22/24 03:25 09/22/24 08:15 09/22/24 08:15 09/22/24 06:00 09/22/24 08:15
I&O
09/21/24 09/22/24 09/23/24
06:59 06:59 06:59
Intake Total 2555 / 2555
Output Total 2950 / 2950 1225 / 1225
Balance -395 / -395 -1225 / -1225
Review of Systems
-
History Source: Patient
Respiratory: Reports No Symptoms
Cardiac: Reports No Symptoms
[2024-09-22] MEDS: SOLU-MEDROL PF 40 MG IV (09:26)
[2024-09-22] MEDS: CORDARONE 104 MG IV (09:27)
--- NOTE | 2024-09-22 09:45 | PTOTSP ---
Speech Pathology Evaluation
83M with admission for acute hypoxic respiratory failure 2/2 possible pneumonia with PMHX of COPD. Presents with s/s concerning for acute on chronic oropharyngeal dysphagia characterized by overt s/s of aspiration with PO trials this date.
Aspiration risk is increased 2/2 current concern for PNA; tenuous respiratory status; AMS/lethargy; dx of metabolic encephalopathy and sepsis; and PMH of metastatic squamous cell to the brain, CHF,COPD, and dysphagia.
Recommend:
1. NPO x ARHP (sips of water sparingly with good oral care)
2. Essential meds crushed in puree
3. Oral care 3-5x day
4. CMM OPERATOR service to follow up re: upgrade diet as able and assess for overt s/s of aspiration
[2024-09-22] MEDS: KEPPRA 1500 MG IV ×2 (10:47→21:20)
--- NOTE | 2024-09-22 10:47 | W.PN.NEURO.1 ---
Today's Communication / Plan
-
.
Subjective/Objective
Subjective Data
Date of Service: September 22, 2024
Neurology follow-up note
24-hour events: Transiently hypotensive down to 95/69, afebrile.
HPI: This is an 83-year-old man who presented to [facility] on September 19, 2024 with acute on chronic respiratory failure. Neurology consultation was requested for an evaluation and management of encephalopathy.
PDMP: Alprazolam 0.530 tabs filled in on 08/15/2024.
Labs: WBCs 30.8�46.9, hemoglobin�12.0, platelets�161, normal sodium, calcium�11.4, normal CK, Depakote level, ammonia, lactic acid, vitamin D�25.9
CT head wo contrast(09/19/2024) -Postoperative changes of right parietal craniotomy with an underlying heterogeneous operative bed which may represent an element of evolving postoperative change or residual mass. There are bilateral holohemispheric
mixed density extra-axial collection. There are areas of hyperdensity within the collections for which a small acute on chronic element cannot be excluded. There is associated mass effect on the subjacent parenchyma.
Routine EEG(09/20/2024)-no evidence of epileptiform abnormalities.
Repeat CT head from today�stable from 09/21/2024.
PMH: Right parietal hemorrhagic lesion(s/p WBR), history of strokes ([facility]), h/o traumatic SDH(2023), stage IV SSC, CAD, HTN, DLP, DM, GERD, CHF, L4/5 spinal stenosis, anemia
PSH: Right parietal craniotomy, AICD, PTCI, bilateral cataract surgery
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
FH: Father�gastric cancer, mother�coronary disease,
All: Thiopental
ROS: Limited due to encephalopathy.
General: In no acute distress.
Cardio: Regular rate and rhythm without murmur. Extremities are without cyanosis or edema.
Neuro:
Mental Status: Somnolent, wakens to tactile stimuli. Poor attention. Oriented to self, person, follows simple requests intermittently. Increased processing time. Mild right hemineglect
Cranial Nerves: Pupils are equally round, surgical. Horizontal EOMs full. Blink to thred on the R. Bilateral ptosis, no nystagmus. No clear facial weakness, hypophonic.
Motor: Moves lower limbs within bed plane, mild left hemiparesis
Reflexes: Positive for grasp on the left
Sensory: Limited due to poor attention
Coordination: No tremors myoclonic movements.
Gait: deferred
Assessment and Plan:
I. Multifactorial encephalopathy (vascular, hypercalcemia, infectious, neoplastic), clinically improved
II. Acute/subacute right-sided and chronic L SDH hematomas with mass effect on the adjacent frontoparietal lobes . Spontaneous?
III. 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 Right parietal hemorrhagic mass s/p resection and whole brain radiation
IV. Stage IV SSC. Hypercalcemia
. Subacute/chronic L MCA/RADIOGRAPHER CARDIAC CATHETERIZATION, BL cerebellar infarcts, likely from hypercoagulability. Off Eliquis.
VII. Enterococcal UTI
- Continue Telemetry monitoring
- Seizure and aspiration precautions
- Continue valproic acid to 400 mg every 6 hours and Keppra 1500 mg twice daily
- Plan to start aspirin 81 mg after brain MRI is completed
- DVT prophylaxis.
- SCDs/TEDs
- Case was discussed with patient's daughter and .
I personally reviewed all radiology and labs along with past medical records pertinent to current medical problems. Total time spent in patient care is 60 minutes.
Thank you for allowing us to participate in the care of this patient. We will continue to follow. Please do not hesitate to contact us with any questions or concerns.
Objective Data
Vital Signs
Temp Pulse Resp BP Pulse Ox
36.3 C 84 16 115/65 93
09/22/24 07:20 09/22/24 08:15 09/22/24 08:15 09/22/24 06:00 09/22/24 08:15
Lab Results
09/22/24 04:38
09/22/24 04:38
PT 13.5 Sec (11.4-14.6) 09/20/24 08:35
INR 1.00 09/20/24 08:35
APTT 33.0 Sec (23.4-35.0) 09/20/24 08:35
Sodium 143 mmol/L (135-145) 09/22/24 04:38
Potassium 4.0 mmol/L (3.5-5.1) 09/22/24 04:38
BUN 26 mg/dl (9-20) H 09/22/24 04:38
Glucose 155 mg/dl (70-99) H 09/22/24 04:38
Calcium 11.2 mg/dl (8.4-10.2) H 09/22/24 04:38
Dto-V-Qgpnqtppoin Pept 504 pg/ml 09/20/24 08:34
Patient Allergies
thiopental Allergy (Verified 09/19/24 22:07)
stopped breathing
Vital Signs and Labs
-
Vital Signs and Labs:
Vital Signs
Temp Pulse Resp BP Pulse Ox
36.4 C 69 16 115/70 95
09/22/24 11:30 09/22/24 14:00 09/22/24 14:00 09/22/24 14:00 09/22/24 14:19
Lab Results
09/22/24 04:38
09/22/24 04:38
PT 13.5 Sec (11.4-14.6) 09/20/24 08:35
INR 1.00 09/20/24 08:35
APTT 33.0 Sec (23.4-35.0) 09/20/24 08:35
Sodium 143 mmol/L (135-145) 09/22/24 04:38
Potassium 4.0 mmol/L (3.5-5.1) 09/22/24 04:38
BUN 26 mg/dl (9-20) H 09/22/24 04:38
Glucose 155 mg/dl (70-99) H 09/22/24 04:38
Calcium 11.2 mg/dl (8.4-10.2) H 09/22/24 04:38
Qxm-Y-Nxwkxiakigd Pept 504 pg/ml 09/20/24 08:34
Medications
-
Medications:
Generic Name Dose Route Start Last Admin
Trade Name Freq PRN Reason Stop Dose Admin
Acetaminophen 650 mg 09/20/24 04:24
Acetaminophen 650 Mg Rectal Suppository RECTAL 10/18/24 04:23
Q4HPRN PRN
mild pain/ESPINOSA/temp> 100.4F
Albuterol/Ipratropium 3 ml 09/20/24 04:24
Ipratropium 0.5/Albuterol 3 Mg (3 Ml Ampul) INH
R Q4HPRN PRN
shortness of breath
Protocol
Albuterol/Ipratropium 3 ml 09/20/24 12:00 09/22/24 11:32
Ipratropium 0.5/Albuterol 3 Mg (3 Ml Ampul) INH 3 ml
R QID GISELA Administration
Protocol
Amlodipine Besylate 7.5 mg 09/20/24 08:00 09/22/24 11:11
Amlodipine 5 Mg Tablet PO 10/18/24 07:59 Not Given
DAILY GISELA
Atorvastatin Calcium 80 mg 09/20/24 22:00 09/21/24 21:56
Atorvastatin (Lipitor) 80 Mg Tablet PO 10/18/24 21:59 Not Given
HS GISELA
Carvedilol 6.25 mg 09/20/24 08:00 09/22/24 12:06
Carvedilol 6.25 Mg Tablet PO 10/18/24 07:59 Not Given
BID GISELA
Dextrose 12.5 grams 09/20/24 04:24
Dextrose 50% (0.5 Grams/Ml) 50 Ml Syringe IV 10/18/24 04:23
[id number] PRN
hypoglycemia
Protocol
Glucagon 1 mg 09/20/24 04:24
Glucagon 1 Mg Vial IM 10/18/24 04:23
PRN PRN
hypoglycemia
Protocol
Valproate Sodium 400 mg/ 54 mls @ 55 mls/hr 09/20/24 00:00 09/22/24 13:30
Sodium Chloride IV 10/18/24 00:00 54 mls
Q6H GISELA Administration
Doxycycline Hyclate 100 mg/ 260 mls @ 260 mls/hr 09/19/24 22:00 09/22/24 11:02
Sodium Chloride IV 260 mls
Q12H GISELA Administration
Amiodarone HCl 200 mg/ 104 mls @ 208 mls/hr 09/20/24 09:00 09/22/24 09:27
Dextrose IV 10/18/24 08:59 104 mls
Q24H GISELA Administration
Piperacillin Sod/Tazobactam Sod 3.375 gram in 50 mls @ 100 mls/hr 09/20/24 10:00 09/22/24 09:38
Zosyn IV 50 mls
Q6H GISELA Administration
Vancomycin HCl 1,250 mg/ 275 mls @ 183.33 mls/hr 09/21/24 06:00 09/22/24 06:08
Sodium Chloride IV 275 mls
DAILY@0600 GISELA Administration
Protocol
Dextrose/Sodium Chloride 1,000 mls @ 100 mls/hr 09/20/24 10:00 09/22/24 12:46
D5/0.9% Sodium Chloride IV 1,000 mls
.Q10H GISELA Administration
Insulin Aspart 0 units 09/20/24 08:00 09/22/24 13:32
Insulin Aspart Low Resistance 300 Units/3 Ml Pen.Injctr SC 10/18/24 07:59 1 units
Q6 GISELA Administration
Protocol
Lactobacillus/Bifidobacterium 1 cap 09/20/24 08:00 09/22/24 11:13
Lactobac/Bifidobac (Visbiome) PO 10/18/24 07:59 Not Given
BID GISELA
Levetiracetam 1,500 mg 09/19/24 22:00 09/22/24 10:47
Levetiracetam (100 Mg/Ml) 500 Mg/5 Ml Vial IV 10/17/24 21:59 1,500 mg
Q12 GISELA Administration
Methylprednisolone Sodium Succinate 40 mg 09/22/24 08:00 09/22/24 09:26
Methylprednisolone Pf 40 Mg/Ml Vial IV 10/20/24 07:59 40 mg
DAILY GISELA Administration
Sennosides 8.6 mg 09/20/24 08:00 09/22/24 11:13
Sennosides (Senokot) 8.6 Mg Tablet PO 10/18/24 07:59 Not Given
BID GISELA
Sodium Chloride 0 flush 09/19/24 22:00
Sodium Chloride 0.9% (Flush) Syringe IV 10/17/24 21:59
PER PROTOCOL GISELA
Tamsulosin HCl 0.4 mg 09/20/24 22:00 09/21/24 21:56
Tamsulosin 0.4 Mg Capsule PO 10/18/24 21:59 Not Given
HS GISELA
Thiamine HCl 100 mg 09/20/24 08:00 09/22/24 11:13
Thiamine 100 Mg Tablet PO 10/18/24 07:59 Not Given
DAILY GISELA
Home Medications
-
Home Medications
acetaminophen 325 mg tablet (Tylenol) 650 mg PO Q6HPRN PRN mild pain/temp>100 06/11/24
omeprazole magnesium 20 mg tablet,delayed release (Prilosec OTC) 20 mg PO DAILY GERD #0 tabs 06/27/24
spironolactone 25 mg tablet 12.5 mg PO DAILY Fluid Retention/Swelling 08/18/24
Lactobac no.2-Bifidobac no.1-S. thermo 112.5 billion cell capsule (Visbiome) 1 cap PO BID Supplement 09/19/24
amiodarone 200 mg tablet 200 mg PO DAILY AFIB 09/19/24
amlodipine 5 mg tablet 7.5 mg PO DAILY Blood Pressure 09/19/24
ammonium lactate 12 % lotion 1 applic topical HS Skin Issues 09/19/24
amoxicillin 500 mg-potassium clavulanate 125 mg tablet (Augmentin) 1 tab PO Q8H Infection 09/19/24
atorvastatin 80 mg tablet 80 mg PO HS High Cholesterol 09/19/24
bisacodyl 10 mg rectal suppository (Dulcolax (bisacodyl)) 10 mg AK DAILYPRN PRN MOM ineffective 09/19/24
carvedilol 6.25 mg tablet 6.25 mg PO BID Blood Pressure 09/19/24
glimepiride 2 mg tablet 2 mg PO BID Diabetes 09/19/24
guaifenesin 200 mg tablet 600 mg PO BID Congestion 09/19/24
heparin (porcine) 5,000 unit/mL injection solution 5,000 unit SC Q8H Blood Clot Prevention/Tx 09/19/24
insulin lispro 100 unit/mL subcutaneous pen 1 sliding scale dose SC Q6H Diabetes 09/19/24
ipratropium 0.5 mg-albuterol 3 mg (2.5 mg base)/3 mL nebulization soln 3 ml inhalation R BID Lung/Breathing Issues 09/19/24
levetiracetam 750 mg tablet (Keppra) 1,500 mg PO BID Seizures 09/19/24
magnesium hydroxide 400 mg/5 mL oral suspension (Milk of Magnesia) 30 ml PO [id number] PRN constipation 09/19/24
melatonin 3 mg tablet 6 mg PO HS Sleep 09/19/24
metformin 1,000 mg tablet 1,000 mg PO BID Diabetes 09/19/24
saxagliptin 2.5 mg tablet 2.5 mg PO DAILY Diabetes 09/19/24
sennosides 8.6 mg tablet (senna) 8.6 mg PO BID Constipation 09/19/24
sodium phosphates 19 gram-7 gram/118 mL enema (Fleet Enema) 118 ml AK DAILYPRN PRN dolcolax ineffective 09/19/24
tamsulosin 0.4 mg capsule (Flomax) 0.4 mg PO HS Urinary Issue 09/19/24
thiamine HCl (vitamin B1) 100 mg tablet 100 mg PO DAILY Supplement 09/19/24
valproic acid (as sodium salt) 250 mg/5 mL oral solution 400 mg PO Q6H Seizures 09/19/24
[2024-09-22] MEDS: VIBRAMYCIN 260 MG IV ×2 (11:02→21:14)
[2024-09-22] MEDS: VISBIOME PO (11:13)
[2024-09-22] MEDS: SENOKOT PO (11:13)
[2024-09-22] MEDS: COREG PO (12:06)
[2024-09-22 13:08] LABS: Glucose - Point of Care 188 mg/dl (70-99)
[2024-09-22 15:33] LABS: Urine Albumin 2+ (Neg - Trace); Urine Bilirubin Negative (Negative); Urine Character Slightly Cloudy (Clear); Urine Color Yellow; Urine Glucose 2+ (Negative); Urine Ketone Negative (Negative); Urine Leukocyte 2+ (Negative); Urine Nitrite Negative (Negative); Urine Occult Blood 4+ (Negative); Urine Specific Gravity 1.025 (<1.030); Urine Urobilinogen Negative (Neg - 1+)
--- NOTE | 2024-09-22 15:41 | W.PN.PUL3 ---
Today's Communication / Plan
-
Broad-spectrum antibiotics
Aspiration precautions
Continue nasal cannula with use of BiPAP if needed for increased work of breathing
Maintain SpO2 88-95%
DuoNebs
Steroids with Solu-Medrol with rapid wean
Amiodarone drip
Keep NPO as per SURGERY TECH; may need DHT if PO meds need to be given, but only insert DHT if in line with patient's GOC
Guarded prognosis - hospice appropriate
No additional recommendations at this time. Pulmonary service will now sign off. Please reconsult if there are any additional questions/concerns, or if patient's respiratory status deteriorates.
Assessment
-
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
02/2014) who presented from [facility] due to altered mental status. Family has reported the patient's been declining lately and had a recent diagnosis of pneumonia. Reportedly, patient's blood sugar was 40 for EMS, and he was given 400 cc
of D10. He was extremely lethargic in the ER. His , daughter and granddaughter were present at bedside. Initial vitals showed he was afebrile to 98.8 �F, pulse rate 82, respiratory rate 22, BP 124/82 and saturating 88% on room air, which
improved to 90% with 4 L/min nasal cannula. Initial labs showed significant leukocytosis to 32.3, respiratory alkalosis with pH 7.53, pCO2: 33, and hypoxia with PO2: 64. Initial glucose 221, + calcium level 11.4. Flu swab for A/B was negative.
In the ER he was given cefepime, DuoNebs + IVF with 1 L NS 0.9% and then was trialed on high flow nasal cannula due to worsening hypoxia. He continued to desaturate despite being on high flow nasal cannula and nonrebreather, and was transition to
BiPAP on 05/09 cmH2O bled with 15 L/min and was admitted to the IMU for further care. This morning he continues to be minimally responsive and hypoxic, and Breast Trimmer services consulted for additional management/recommendations.
Chronic conditions RN NEW GRADUATE: Skin cancer (BCC + SCC s/p excision), right parietal lobe metastasis (seen on CT head at on 06/03/2024) s/p right parietal craniotomy on 06/07/2024 (path showed metastatic poorly differentiated carcinoma involving the brain)
s/p SRS (Jun-July + August 2024 - [facility]), chronic subdural hematomas (bilaterally), right renal mass with Hx of renal Bx on 09/03/2024 showing SCC, ambulatory dysfunction/physical deconditioning, mixed hyperlipidemia, DM type II, CAD, ICM/LBBB s/p
BiV-ICD (implanted 02/2014), chronic HFmrEF (TTE from 02/13/2024 showed LVEF 45-50%), nephrolithiasis, chronic lower back pain, Hx of falls (05/2024), reported history of COPD, dysphagia, hypertension, hyperlipidemia, traumatic subdural hemorrhage s/p
fall (06/2023), insomnia, malnutrition
Impression:
#Acute encephalopathy likely due to known SALICYLIC ACID BLENDER metastasis of poorly differentiated carcinoma in setting of hypercalcemia + suspected TME with sepsis from UTI; unlikely pneumonia
#Acute respiratory failure with hypoxia likely due to sepsis
#Leukocytosis likely due to sepsis + steroid induced
#Hypercalcemia (seems as if his calcium level has been elevated since 08/18/2024) - this could be paraneoplastic
#DM type II (uncontrolled � HbA1c: 6.9 on 09/20/2024) with hyperglycemia
#Chronic subdural hematomas with persistent mass effect on the adjacent frontoparietal lobes (slightly improved on CT head 09/19/[address] head from 08/18/2024)
#History of skin cancer (BCC and SCC s/p excision)
#Right parietal lobe brain metastasis (first seen on CT head at - 06/03/2024) s/p craniotomy (06/07/2024- path showed metastatic poorly differentiated carcinoma involving the brain) s/p SRS (Jun-July 2024 - [facility])
#Exophytic right kidney mass measuring 4.4 x 4.[address] A/P from 08/13/2024, suspicious for cystic RCC
#Bilateral nephrolithiasis
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
#Reported Hx of COPD
#Multiple pulmonary nodules (RUL, MURALI + RML) - all are <6 mm
#CAD s/p stents
#Hx of HFrEF/ICM s/p BiV-ICD (now with improved LVEF to 40-45% from 30%)
Plan:
- Breast Trimmer services were called on 09/20 due to continued hypoxia with altered mental status with concern for airway protection
- He does have chronic subdural hematomas with history of infarcts suspected to be embolic, possibly due to hypercoagulability of malignancy
- Brain imaging done on 09/19 here at showing continued bilateral mixed density extra�axial collections which have slightly improved compared to last CT head on 08/18/2024, and there is an associated mass effect on the subjacent parenchyma
involving the frontoparietal lobes -perhaps this is contributing most to his current decline
- Blood gas checked on 09/19 and 09/20 showing respiratory alkalosis with significant hypoxia with a increased A-a gradient
- TSH is WNL at 4.25, procal was WNL at 0.2, troponin negative at <0.012, although calcium level is elevated at 11.7
- Continue trending his calcium level + iCa; IVF
- Follow up PTHrP
- EEG done on 09/20/2024 was unremarkable; Neuro consulted; given his worsening leukocytosis with AMS, need to consider encephalitis; continue with keppra + valproic acid(home dose)
- Continue broad spectrum Abx (Zosyn, vancomycin, doxycycline) and follow up infectious workup - blood Cx, UCx positive for Enterococcus species; check a sputum Cx (if a decent sample can be obtained); urine antigens for legionella + strep pneumonia
both negative
- He has had multiple MRIs with most recent one on 07/12/2024 - repeat MRI brain is pending
- CT head was repeated today showing no significant change compared to prior CT head on 09/19/2024
- Avoid narcotics or any SALICYLIC ACID BLENDER depressant medications as this will only worsen his mental status; if we transition to hospice/comfort care then it would be okay to start narcotics in that scenario
- Unclear what is driving his hypoxia; echo repeated on 09/20/2024 with no obvious shunt seen, with normal RV size and function, although study was very technically limited
- Suspect hypoventilation with physical deconditioning is largely responsible for his hypoxia
- There is no convincing evidence for pneumonia on his CTA chest from 09/19/2024, also no acute PE seen
- He carries a history of COPD, although there is no emphysema seen on recent CTA Chest imaging from 09/19, he is a non-smoker
- No PFTs available for review; keep HOB >30-45� to reduce risk of aspiration
- Maintain SpO2 88-95%, weaning down supplemental O2 flow rate as tolerated
- Continue nebulized bronchodilators QID with prn DuoNebs (not currently bronchospastic)
- Patient is not currently wheezing, and hospitalist started Decadron 6 mg IV q8hr -unclear what the benefit is here considering he is not in a circulatory shock state, does not have severe CAP, and I question the diagnosis of COPD; also absolute
eosinophil count is unimpressive --> continue to wean down solumedrol and would stop over the next 1-2 days
- Maintain MAP>65
- He takes PO amiodarone at home, hence continue amiodarone drip; he will need a PICC line or central line if he continues to remain on amiodarone for >24 hours
- Replete electrolytes with K>4, Mg>2
- Maintain euglycemia with goal BG 140-180
- Trend H/H and transfuse if needed to keep Hb>7g/dL; keep plt>20k, unless there is concern for bleeding then keep plt>50k
- Avoid PO meds for now and keep NPO as per SURGERY TECH today; may need dobhoff tube, if this is in line with his GOC
- DVT ppx: SCDs for now, although CT head shows stable chronic subdural hematomas. If H&H remains stable and he continues to be full medical management, then would start heparin SQ vs LMWH at that time; his outpatient neurologist, Dr. Castillo
Yg, wanted to start Eliquis in the setting of his known ischemic infarcts with the risk of hypercoagulability of malignancy; decision was pending neurosurgery's opinion given his history of chronic subdural hematomas
[facility] discussion - 09/20/2024: Goals of care discussion held with the hospitalist, Dr. Lawrence, myself and patient's daughter, Carlotta. Carlotta says that her and other family members were here in the hospital overnight late yesterday and they had
discussed how he has been declining and decided that they do not want him intubated or to undergo CPR if his heart were to stop. All questions were answered and emotional support was provided. He is hospice appropriate. Would consult hospice and
have them speak to the family.
No additional recommendations at this time. Pulmonary service will now sign off. Thank you for allowing us to be involved in the care of this patient. Please reconsult if there are any additional questions/concerns, or if patient's respiratory
status deteriorates.
Data:
CXR 09/20/2024: Decreased lung volumes without focal airspace disease or overt pulmonary edema. No pneumothorax.
Abdominal US 09/20/2024: The gallbladder is mildly prominent without sonographic evidence of cholelithiasis, acute cholecystitis or biliary duct dilation; Distended urinary bladder with estimated volume of 1354 cc. There is internal debris within the
urinary bladder which can be seen with cystitis. Consider correlation with urinalysis.
CTA Chest 09/19/2024:
1. No evidence of central, lobar or segmental pulmonary embolism.
2. Left greater than right bibasilar consolidations which may represent pneumonia, possible atelectasis.
3. Scattered nodules within the left upper lobe measuring up to 7 mm. This appears similar to prior recent pet/CT however in the setting of malignancy pulmonary metastasis cannot be excluded. Recommend continued follow-up.
CT Head 09/19/2024:
Postoperative changes of right parietal craniotomy with an underlying heterogeneous operative bed which may represent an element of evolving postoperative change or residual mass. There are bilateral holohemispheric mixed density extra-axial
collections which have slightly decreased in size from prior. There are areas of hyperdensity within the collections for which a small acute on chronic element cannot be excluded. There is associated mass effect on the subjacent parenchyma, slightly
decreased from prior. Consider follow-up CT head to ensure stability.
Brain MRI with and without contrast 07/12/2024 (through [facility]):
1. Acute/early subacute infarcts within the left occipital lobe and the right periventricular white matter, new since 06/07/2024. One of the new infarcts demonstrates contrast-enhancement, likely slightly older in age. A punctate focus of
enhancement in the left occipital lobe more inferiorly is without definite diffusion restriction, but is favored to also reflect sequelae of subacute ischemia given the interval ischemia in the area. Attention on follow-up imaging is recommended to
assess for appropriate interval evolution.
2. Right craniotomy for resection of right parietal metastasis. Largely stable extra�axial collections overlying the right cerebral convexity. Redemonstrated evolving hemorrhage within the right parietal resection cavity with stable to slight
increase in size of residual viable neoplasm at the superior aspect. Slight increase in surrounding edema, likely related to interval therapy. No significant mass effect.
3. Indeterminate mass in the superior right nasal cavity. Correlation with sinonasal exam is recommended.
Total time spent today was 37 minutes for this encounter. Time includes reviewing laboratory test/imaging results, reviewing pertinent medical records, obtaining and reviewing medical history, performing an appropriate exam, ordering medications,
tests and procedures. Time also includes documentation of this encounter, coordinating patient care and communicating with other healthcare professionals. Total time does not include separately billed tests performed on this date of service.
Subjective Data
-
Date of Service:
Date of Service: September 22, 2024
Chief Complaint: Pulmonary Follow Up
Subjective:
Patient seen earlier today (late note entry). He remains drowsy but arousable and tries to talk but has weakness with difficulty phonating. Heart rate 66, BP 98/59 and saturating 95% on 6 L/min. And members at bedside and all questions were
answered.
Review of Systems
General: Other (Unobtainable due to acute clinical status/lethargy)
Objective Data
Data Reviewed
Vital Signs / I&O / Oxygen:
Vital Signs
Temp Pulse Resp BP Pulse Ox
97.3 F 84 16 115/65 93
09/22/24 07:20 09/22/24 08:15 09/22/24 08:15 09/22/24 06:00 09/22/24 08:15
Intake and Output
09/21/24 09/22/24 09/23/24
06:59 06:59 06:59
Intake Total 2555 / 2555
Output Total 2950 / 2950 1225 / 1225
Balance -395 / -395 -1225 / -1225
SaO2 93
Nasal Cannula flow liters per 2
minute
Physical Exam
General: Respiratory Distress (negative), Comfortable, Chills (negative) and Sweats (negative)
HEENT: Normocephalic and Anicteric
Cardiovascular: S1-S2 and Peripheral Edema (+1 lower extremity edema bilaterally)
Respiratory: Wheeze (negative), Crackles (Bibasilar), Rhonchi (negative), Accessory Resp Muscle Use (negative) and Other (Diminished breath sounds bilaterally)
GI: Soft, Non Distended, Non Tender and Normal Bowel Sounds
Neurology: Tremors (negative), Lethargic and Other (speech is incomprehensible)
Skin: Warm, Dry, Cyanosis (negative) and Jaundice (negative)
Labs/Micro/Reports
Lab Data
09/22/24 04:38
09/22/24 04:38
Microbiology
09/20/24 08:36 Blood/Venous Blood Culture - Preliminary
No Growth in 48 hours- Final report to follow
09/20/24 08:36 Blood/Venous Blood Culture - Preliminary
No Growth in 48 hours- Final report to follow
09/20/24 09:19 Urine Urine Culture - Preliminary
Enterococcus species
09/20/24 08:39 Nose Nasal Screen MRSA (PCR) - Final
MRSA not detected - performed by PCR methodology.
09/20/24 09:19 Urine Legionella Urinary Antigen - Final
Negative for Legionella pneumophila Serogroup 1 antigen.
A negative result does not rule out the possiblity of
Legionella infection due to other serogroups or species of
Legionella. Clinical correlation is recommended.
09/20/24 09:19 Urine Streptococcus pneumoniae Antigen (M - Final
Negative for Streptococcus pneumoniae antigen.
A negative result does not exclude infection with
Streptococcus pneumoniae. Clinical correlation is
recommended.
09/19/24 17:14 Nasal Swab Influenza Types A & B (JAYME) - Final
Negative for Influenza A & B, NAAT
Negative results must be combined with clinical observations
and patient history.
Nucleic Acid Amplification test (NAAT)performed on the
[employer] platform.
[2024-09-22 15:42] LABS: Urine Bacteria Few (Negative); Urine Calcium Oxalate Crystals Present; Urine White Cell 26-30 /HPF (0-5)
--- NOTE | 2024-09-22 15:59 | CHAP ---
Kapil was able to smile briefly during our visit, which brought encouragement to his family. Emotional and spiritual support provided.
--- NOTE | 2024-09-22 15:59 | PTCARENOTE ---
Patient is drowsy overall this shift, at times he has garbled speech and talks to staff and family. Patient very weak, sat on the side of the bed with RN and PT today. Patient continues to have trouble swallowing, speech consult completed. Patient
is NPO with aspiration precautions, oral care provided with suction.
[2024-09-22] MEDS: NOVOLOG FLEXPEN-LOW RESISTANCE 2 UNITS SC (18:01)
[2024-09-22 18:11] LABS: Glucose - Point of Care 203 mg/dl (70-99)
[2024-09-22] MEDS: LIPITOR 80 MG PO (21:13)
[2024-09-22] MEDS: FLOMAX 0.4 MG PO (21:13)
[2024-09-22] MEDS: VISBIOME 1 CAP PO (21:16)
[2024-09-22] MEDS: COREG 6.25 MG PO (21:16)
[2024-09-22] MEDS: SENOKOT 8.6 MG PO (21:16)
[2024-09-23] VITALS (23 sets, daily range): BP systolic 83–136; BP diastolic 39–82; PULSE 72–85; O2SAT 91; BMI 22.4
[2024-09-23 00:23] LABS: Glucose - Point of Care 173 mg/dl (70-99)
[2024-09-23] MEDS: DEPACON 54 MG IV ×4 (00:57→18:12)
[2024-09-23] MEDS: NOVOLOG FLEXPEN-LOW RESISTANCE 1 UNITS SC ×4 (00:58→18:19)
--- NOTE | 2024-09-23 02:10 | PTCARENOTE ---
received pt from krzysztof RN. Pt drowsy, arouses to verbal stimuli. AAOx1, bed alarm on when family not in room. PO meds given crushed in applesauce. See worklist for assessment. Hypotensive, RN DIGESTIVE notified. Current BP 90/39. Remains on IVF and IV ABX.
Vanco peak ordered for 0900. Care ongoing.
[2024-09-23] MEDS: ZOSYN 50 IV ×2 (04:54→09:33)
[2024-09-23] MEDS: VANCOCIN 275 MG IV (05:56)
[2024-09-23 06:03] LABS: Glucose - Point of Care 158 mg/dl (70-99)
[2024-09-23 06:23] LABS: Hematocrit 34.3 % (39.0-52.0); Hemoglobin 11.9 g/dL (13.0-18.0); Mean Corp Hgb Conc. 34.7 g/dL (33.0-37.0); Mean Corpuscular Hgb 32.9 pg (27.0-31.0); Mean Corpuscular Volume 94.8 fL (80.0-94.0); Platelet Count 145 10^3/uL (130-400); Red Blood Cell Count 3.62 10^6/uL (4.70-6.10); Red Cell Dist. Width 19.8 % (11.5-14.5); White Blood Cell Count 40.2 10^3/uL (4.8-10.8)
[2024-09-23 06:36] LABS: ALT (SGPT) 19 U/L (0-50); AST (SGOT) 21 U/L (17-59); Albumin 2.4 g/dl (3.5-5.0); Alkaline Phosphatase 124 U/L (38-126); Blood Urea Nitrogen 21 mg/dl (9-20); Calcium 10.7 mg/dl (8.4-10.2); Carbon Dioxide 25 mmol/L (22-30); Chloride 112 mmol/L (98-107); Estimated Creatinine Clearance 74 ml/min; Glucose 141 mg/dl (70-99); Potassium 3.4 mmol/L (3.5-5.1); Sodium 145 mmol/L (135-145); Total Bilirubin 0.5 mg/dl (0.2-1.3); Total Protein 4.9 g/dl (6.3-8.2); eGFR > 60.00
[2024-09-23 07:26] LABS: % Immature Granulocytes 4.3 % (0-0.5); % Lymphocytes 4.6 % (20.5-51.1); % Monocytes 3.6 % (1.7-9.3); % Neutrophils 87.5 % (42.2-75.2); Absolute Immature Granulocytes 1.7 10^3/uL (0-0.05); Absolute Lymphocytes 1.8 10^3/uL (1.2-3.4); Absolute Monocytes 1.5 10^3/uL (0.1-0.6); Absolute Neutrophils 35.2 10^3/uL (1.4-6.5); Nucleated Red Blood Cells % 0 % (-)
[2024-09-23] MEDS: DUONEB 3 ML INH ×4 (07:34→19:40)
[2024-09-23 08:36] LABS: Glucose - Point of Care 137 mg/dl (70-99)
[2024-09-23] MEDS: COREG PO ×2 (09:24→19:43)
[2024-09-23] MEDS: VISBIOME PO ×2 (09:25→19:43)
[2024-09-23] MEDS: KEPPRA 1500 MG IV ×2 (09:25→21:31)
[2024-09-23] MEDS: SOLU-MEDROL PF 40 MG IV (09:25)
[2024-09-23] MEDS: SENOKOT PO ×2 (09:32→19:43)
[2024-09-23] MEDS: CORDARONE 104 MG IV (09:35)
--- NOTE | 2024-09-23 09:39 | CM ---
Patient from [facility] with Hx recent squamous skin CA with brain mets s/p hemicraniotomy with Dx Acute hypoxic respiratory failure 2/2 Pneumonia. MRI Brain pending. O2 6 midflow. NPO - ST Eval. Receiving IVF, IV Amio, IV Abx, IV
Keppra, IV Solumedrol, IV Valproate Sod. Per nurse; confused, lethargic.
Spoke with Monie, daughter; family visited with patient last night and he was alert and talked a little bit. The daughter is being advised by her mother in Law Annabelle who is the president of the [employer] and a regulatory manager, regarding LTC decisions. The
family [facility]. Daughter shared that the family has been discussing probable need for hospice- answered Monie's questions re; hospice.
Spoke with Pat[facility], [facility]; she is willing to speak with the daughter about LTC.
SNF referral placed for [facility].
Plan follow up with [facility] for acceptance.
[2024-09-23] MEDS: D5/0.9% SODIUM CHLORIDE 1000 IV (09:42)
[2024-09-23] MEDS: VIBRAMYCIN 260 MG IV (09:43)
[2024-09-23 09:48] LABS: Vancomycin Peak 20.6 ug/ml (18-26)
[2024-09-23 13:02] LABS: Glucose - Point of Care 179 mg/dl (70-99)
--- NOTE | 2024-09-23 13:44 | W.PN.HOSP.TC ---
Today's Communication/Plan
-
dc steroids
MRI pending if possible
IVF for now
Vanc/zosyn for now
AEDs
prognosis guarded
Assessment / Plan
Assessment / Plan
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
pneumonia
Patient has complicated recent HX of new diagnosis of brain mass in Jun s/p hemicraniotomy, RT, renal biopsy confirming squamous cell cancer, admission with new onset seizures in [place] additional brain RT discharged from [facility] on September 03 to
[facility] with goal to improve functional status ahead of immunotherapy
As per family - patient was able to eat, talk and interact with them, upon the discharge, but 4 days before this admission became more lethargic, finally found hypoxic and brought to ED.
Mentation improving with hydration and ABx for UTI
A/P:
#Acute hypoxic respiratory failure 2/2 possible pneumonia with PMHX of COPD
CT chest on admission without pulmonary embolism, found b/l bibasilar consolidations cannot exclude atelectasis
Serial ABG
wean off O2
Pulm consult signed off
DUonebs
Bcx NTD
sputum Cx
Legionella and S.pneumonia urinary Ag neg
Vanco/Zosyn for now. Dc doxycycline.
Dc steroids
#Acute metabolic encephalopathy with aphasia
#Leukemoid reaction
#Pulmonary nodules
#Squamous cell skin CA
#Brain mets s/p resection and RT
#Seizure s/o
suspect 2/2 hypoxia with infection
seizure precautions
cont AED IV
Valproate level WNL, ammonia WNL
Oncology consult: hospice appropriate
CT with postOP changes with possible residual mass with mass effect that decreased from prior
MRI brain as off BiPAP if possible as w/BiVICD
EEG: no epileptiform activity
Neurology consult
#Acute UTI
#Acute urinary retention with PMHx of BPH
Le was removed this morning. w/retention -follow bladder scan protocol.
COnt Abx pending final Ucx - Enterococcus
Bcx NTD
CT abd from 08/13/24: non-obstructive nephrolithiasis, irregular exophytic mass arising from the medial lower pole of the right kidney without obstruction
No ROCAEL this admission, no concern for acute obstruction at this time
#Elevated alk.phos most likely 2/2 CA
US RUQ: The gallbladder is mildly prominent without sonographic evidence of cholelithiasis, acute cholecystitis or biliary duct dilation
#DM type 2 with neuropathy
#Hypoglycemia on admission
IVF with D5
Insulin SS, accuchecks, dm diet when more awake
hold glimepiride
#Hypercalcemia 2/2 CA with normal PTH
11.7-11.4 -unlikely to cause AMS
CA induced vs dehydration since was not able to eat for few days
IVF
follow Ca
PTHrP pending
#Cardiomyopathy s/p ICD and PPM
#Chronic HFrEF
#CAD s/p stents
proBNP 504 - no concern for exacerbation
Hx of EF 30%
Echo was technically difficult: may have been mild global hypokinesis. There is no obvious interatrial communication on 4 different microcavitation 'bubble' studies.
On amiodarone gtt -takes 200mg amiodarone daily as OP for afib?
#GOC
Discussed with daughters in details - DNR/DNI
Furher GOC depending on progress
As per Oncology: due to low change of meaningful recovery to the condition when can tolerate further CA treatment - recommended hospice
#Essential HTN
#HLD
cont home meds as patient not with hypotension
#Mild hypokalemia
DVT ppx SCDs
COde DNR
Anticipated Discharge: > 48 hours
Subjective/Interval History
-
Date of Service: September 23, 2024
remains confused
remains NPO
Objective Data
-
Labs:
Laboratory Results
09/23/24
05:49
WBC 40.2 H*
Hgb 11.9 L
Hct 34.3 L
Plt Count 145
Sodium 145
Potassium 3.4 L
Chloride 112 H
Carbon Dioxide 25
BUN 21 H
Creatinine 0.8
Glucose 141 H
Calcium 10.7 H
Total Bilirubin 0.5
AST 21
ALT 19
Alkaline Phosphatase 124
Vital Signs:
Vital Signs
Temp Pulse Resp BP Pulse Ox
97.4 F 65 17 104/54 95
09/23/24 11:05 09/23/24 12:00 09/23/24 12:00 09/23/24 12:00 09/23/24 12:36
I&O
09/22/24 09/23/24 09/24/24
06:59 06:59 06:59
Intake Total 1600 / 1600
Output Total 1225 / 1225 850 / 850 450 / 450
Balance -1225 / -1225 750 / 750 -450 / -450
Physical Exam
-
General: Respiratory Distress and Cachectic
HEENT: Anicteric and Oxygen
Respiratory: Decreased Breath Sounds; Negative Wheezes or Crackles
GI: Soft, Nontender and Nondistended
Musculoskeletal: No Clubbing, No Cyanosis and No Edema
Neuro: Awake and Other (poorly verbal)
Psych: Calm and Confused
Data Reviewed
-
Total Time Spent with Patient (in minutes): 57
[2024-09-23] MEDS: KCL 260 MEQ IV (15:12)
--- NOTE | 2024-09-23 15:17 | PN.CDI ---
CDI
- -
CDI:
Physician Documentation Request
Admit Date: 09/19/24 22:14
Dear Doctor Dat,
09/21 RD notes state 'Pt meets ASPEN criteria for severe protein calorie malnutrition of chronic illness with 10.5% weight loss x 1 month, 21% wt loss x 4 months, < 75% estimated needs for > 1 month.'
Based on the above information and your assessment, which of the following most accurately represents the patient's nutritional status?
Severe Malnutrition
Other (please specify)
[place] Criteria ([facility] Hospitalist 2017)
2 or more criteria must be present for either
non severe or severe malnutrition
Note that the criteria differs related to the
presence of an acute or chronic illness
Acute Illness Chronic Illness
Energy Intake Non Severe: <75% for >7 days Non Severe: <75% for >1 month
Severe: <50% for >5 days Severe: <75% for >1 month
Weight Loss Non Severe: 1-2% over 1 week Non Severe: 5% over 1 month
5% over 1 month 7.5% over 3 months
7.5% over 3 months 10% over 6 months
1 year N/A 20% over 1 year
Severe: >2% over 1 week Severe: >5% over 1 month
>5% over 1 month >7.5% over 3 months
>7.5% over 3 months >10% over 6 months
1 year N/A >20% over 1 year
Body Fat Non Severe: Mild Decrease Non Severe: Mild Loss
Severe: Moderate Decrease Severe: Severe Loss
Muscle Mass Non Severe: Mild Decrease Non Severe: Mild Loss
Severe: Moderate Decrease Severe: Severe Loss
Fluid Accumulation Non Severe: Mild Accumulation Non Severe: Mild Accumulation
Severe: Moderate to severe Severe: Moderate to severe
accumulation accumulation
Reduced Table Keeper Strength Non Severe: N/A Non Severe: N/A
Severe: Measurably reduced Severe: Measurably reduced
Use of terms such as suspected, likely, concern for, or probable (associated with a specific diagnosis that is being evaluated, monitored, or treated as if it exists) are acceptable and can be coded in the inpatient setting, when documented at the
time of discharge.
Thank you,
Leliani Segura RN, BSN
CDI Specialist
tiger text
Please use your independent medical judgment in providing your response.
--- NOTE | 2024-09-23 15:20 | PTCARENOTE ---
Patient drowsy today, garbled speech. Was able to participate in therapy today. Patient is NPO, no oral medication given due to risk of aspiration/ drowsiness. Discussed with hospitalist. Patient is for MRI.
--- NOTE | 2024-09-23 15:21 | PN.CDI ---
CDI
- -
CDI:
Physician Documentation Request
Admit Date: 09/19/24 22:14
Dear Doctor Dat,
Patient admitted with acute hypoxic respiratory failure 2/2 to possible pneumonia.
The diagnosis of sepsis was documented on 09/19 in H&P but is not consistently noted in subsequent documentation.
Patient presented and remains afebrile,
Presenting Heart rates documented between 82-100, respiratory rates 14-18
09/20 lactic acid 1.6
WBC's
Laboratory Tests
09/19/24 09/20/24 09/21/24
17:14 04:46 03:31
WBC 32.3 H 33.3 H 46.9 H*
09/22/24 09/23/24
04:38 05:49
WBC 42.7 H* 40.2 H*
Please clarify the following:
____ - Sepsis was present on admission
____ - Sepsis was ruled out
____ - Other
Use of terms such as suspected, likely, concern for, or probable (associated with a specific diagnosis that is being evaluated, monitored, or treated as if it exists) are acceptable and can be coded in the inpatient setting, when documented at the
time of discharge.
Thank you,
Leilani Segura RN, BSN
CDI Specialist
tiger text
Please use your independent medical judgment in providing your response.
--- NOTE | 2024-09-23 15:27 | PN.CDI ---
CDI
- -
CDI:
Physician Documentation Request
Admit Date: 09/19/24 22:14
Dear Doctor Dat,
Patient presented to ED with cough and subacute onset confusion. Exam in ED shows 'Lethargic minimal response to painful stim'
History Card Clerk consultation states ' ....suspected TME with sepsis from UTI;'
Hospitalist notes state 'Acute metabolic encephalopathy suspect 2/2 hypoxia vs infection'
Please clarify the type of encephalopathy:
Acute metabolic encephalopathy
TME
Other
Use of terms such as suspected, likely, concern for, or probable (associated with a specific diagnosis that is being evaluated, monitored, or treated as if it exists) are acceptable and can be coded in the inpatient setting, when documented at the
time of discharge.
Thank you,
Leilani Segura RN, BSN
CDI Specialist
tiger text
Please use your independent medical judgment in providing your response.
[2024-09-23 16:16] LABS: Glucose - Point of Care 195 mg/dl (70-99)
--- NOTE | 2024-09-23 16:26 | VATNOTE ---
2 attempts at third IV site unsuccessful. Ok for just 2 sites at the moment. Will continue to monitor.
[2024-09-23] MEDS: UNASYN IV (16:59)
--- NOTE | 2024-09-23 18:10 | PTCARENOTE ---
Patient required straight cath twice this shift due to urinary retention after bazan removal. See documentation. aware.
--- NOTE | 2024-09-23 18:47 | PTCARENOTE ---
Patients left arm swollen, contacted IV team to evaluate for infiltrate. IV site removed, arm elevated and new IV placed by IV team. Discussed with family.
[2024-09-23] MEDS: LIPITOR PO (21:32)
[2024-09-23] MEDS: FLOMAX PO (21:32)
--- NOTE | 2024-09-23 22:17 | PTCARENOTE ---
Pt remains drowsy/lethargic. Unable to take PO meds. VSS at this time. Care ongoing.
[2024-09-24] VITALS (12 sets, daily range): BP systolic 104–129; BP diastolic 51–79; BMI 22.4
[2024-09-24 00:16] LABS: Glucose - Point of Care 157 mg/dl (70-99)
[2024-09-24] MEDS: D5/0.9% SODIUM CHLORIDE IV (00:21)
[2024-09-24] MEDS: UNASYN IV ×4 (00:22→18:02)
[2024-09-24] MEDS: DEPACON 54 MG IV ×4 (00:22→18:01)
[2024-09-24] MEDS: NOVOLOG FLEXPEN-LOW RESISTANCE 1 UNITS SC ×3 (00:23→18:18)
--- NOTE | 2024-09-24 02:28 | PTCARENOTE ---
Bladder scan showed 800ml. PLANISHER notified via tiger text. 16F bazan catheter placed. 800ml initial output clear yellow urine.
[2024-09-24] MEDS: D5/0.9% SODIUM CHLORIDE 1000 IV ×3 (02:59→21:38)
[2024-09-24 05:54] LABS: Hematocrit 34.5 % (39.0-52.0); Hemoglobin 11.9 g/dL (13.0-18.0); Mean Corp Hgb Conc. 34.5 g/dL (33.0-37.0); Mean Corpuscular Hgb 32.8 pg (27.0-31.0); Mean Platelet Volume 9.5 fL (7.4-10.4); Platelet Count 151 10^3/uL (130-400); Red Blood Cell Count 3.63 10^6/uL (4.70-6.10); Red Cell Dist. Width 19.9 % (11.5-14.5)
[2024-09-24 05:57] LABS: Glucose - Point of Care 144 mg/dl (70-99)
[2024-09-24 06:00] LABS: Blood Urea Nitrogen 14 mg/dl (9-20); Calcium 10.4 mg/dl (8.4-10.2); Carbon Dioxide 26 mmol/L (22-30); Chloride 110 mmol/L (98-107); Estimated Creatinine Clearance 85 ml/min; Glucose 133 mg/dl (70-99); Magnesium 1.4 mg/dl (1.6-2.3); Phosphorus 2.2 mg/dl (2.5-4.5); Potassium 3.1 mmol/L (3.5-5.1); Sodium 144 mmol/L (135-145); eGFR > 60.00
[2024-09-24] MEDS: NOVOLOG FLEXPEN-LOW RESISTANCE SC (06:00)
[2024-09-24 06:04] LABS: Vancomycin Trough 11.1 ug/ml (5-20)
[2024-09-24 06:21] LABS: % Immature Granulocytes 4.8 % (0-0.5); % Lymphocytes 3.9 % (20.5-51.1); % Monocytes 3.4 % (1.7-9.3); % Neutrophils 87.9 % (42.2-75.2); Absolute Lymphocytes 1.6 10^3/uL (1.2-3.4); Absolute Monocytes 1.4 10^3/uL (0.1-0.6); Nucleated Red Blood Cells % 0 % (-)
[2024-09-24] MEDS: KCL 270 MEQ IV (06:43)
[2024-09-24] MEDS: DUONEB 3 ML INH ×4 (07:06→19:17)
--- NOTE | 2024-09-24 07:56 | PTCARENOTE ---
Assumed care of patient this AM. Le catheter reinserted overnight. Failed voiding trial. O2 at 4L pulse ox 89%-91% at rest in bed. Meeta in room at bedside, nursing update provided. VS stable.
[2024-09-24] MEDS: KEPPRA 1500 MG IV ×2 (09:44→21:29)
[2024-09-24] MEDS: COREG PO (09:49)
[2024-09-24] MEDS: CORDARONE 104 MG IV (09:50)
[2024-09-24] MEDS: MAGNESIUM SULFATE 50 IV (09:50)
--- NOTE | 2024-09-24 09:50 | W.PN.ONC2 ---
Today's Communication / Plan
-
.
Impression
Impression
unknown primary w/ hx of SC CA IHC/NGS with progression postop complicated by seizures/ nonambulatory following 2nd radiation course ( gamma knife f/b WBRT)
20kg weight loss in 2024
enterococcus faecalis UTI
PNA
Multifactorial encephalopathy
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
Subacute/chronic L MCA/TWISTING FRAME CHANGER, BL cerebellar infarcts
Plan
Plan
hospice appropriate given failing health issues and unlikely recovery to a meaningful PS to benefit from ICI therapies
speech following for aspiration risk
PT/OT -2 assist, unable to stand or transfer
f/u MRI brain
abx per primary service
neurology following
Daughter at bedside provided updates and questions answered
Subjective/Objective
Subjective
3.5L NC
daughter reports improved speech today
Vital Signs:
Vital Signs
Temp Pulse Resp BP Pulse Ox
98.7 F 79 20 128/65 92
09/24/24 03:00 09/24/24 07:13 09/24/24 07:13 09/24/24 06:00 09/24/24 07:13
Lab Results:
Laboratory Data
WBC 41.0 10^3/uL (4.8-10.8) H* 09/24/24 05:24
Hgb 11.9 g/dL (13.0-18.0) L 09/24/24 05:24
Plt Count 151 10^3/uL (130-400) 09/24/24 05:24
PT 13.5 Sec (11.4-14.6) 09/20/24 08:35
INR 1.00 09/20/24 08:35
APTT 33.0 Sec (23.4-35.0) 09/20/24 08:35
eGFR > 60.00 09/24/24 05:24
Physical Exam
frail
HEENT: Moist Mucous Membranes; No Jaundice
Pulmonary: Other (unlabored)
GI: Soft
[2024-09-24] MEDS: SENOKOT PO (11:56)
[2024-09-24] MEDS: VISBIOME PO (11:56)
--- NOTE | 2024-09-24 12:21 | PTOTSP ---
Dysphagia Tx
Impression: Acute on chronic oral/pharyngeal dysphagia. 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
TEENA/mentation inappropriate to initiate an oral diet at this time. Hold aspiration risk hydration protocol. Recommend NPO and temporary non-oral means pending goals of care vs PO (puree, thin) for comfort/pleasure via careful spoon feeding if
opting for comfort care/hospice. Goals of care discussions on-going per chart review.
Recommendations:
1. NPO
2. Non-oral meds if able; otherwise essential meds crushed in puree
3. Oral care 3-5x day
4. POT HOLDER BINDER service to follow up re: ARHP and diet initiation as appropriate
[2024-09-24 13:13] LABS: Glucose - Point of Care 177 mg/dl (70-99)
--- NOTE | 2024-09-24 13:33 | W.PN.HOSP.TC ---
Today's Communication/Plan
-
Replete electrolytes aggressively
Continue with IV fluid and changed to D5 with KCl
Monitor mentation
Oncology recommends hospice
Assessment / Plan
Assessment / Plan
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
pneumonia
Patient has complicated recent HX of new diagnosis of brain mass in Jun s/p hemicraniotomy, RT, renal biopsy confirming squamous cell cancer, admission with new onset seizures in [place] additional brain RT discharged from [facility] on September 03 to
[facility] with goal to improve functional status ahead of immunotherapy
As per family - patient was able to eat, talk and interact with them, upon the discharge, but 4 days before this admission became more lethargic, finally found hypoxic and brought to ED.
Mentation improving with hydration and ABx for UTI
A/P:
#Acute hypoxic respiratory failure 2/2 possible pneumonia with PMHX of COPD
#Sepsis-poa
CT chest on admission without pulmonary embolism, found b/l bibasilar consolidations cannot exclude atelectasis
wean off O2
Pulm consult signed off
DUonebs
Bcx NTD
sputum Cx
Legionella and S.pneumonia urinary Ag neg
Vancomycin/Zosyn and doxycycline discontinued. Patient antibiotics narrowed to Unasyn
Dc steroids
#Acute toxic metabolic encephalopathy with aphasia
#Leukemoid reaction some aspect due to steroids and also due to malignancy
#Pulmonary nodules
#Squamous cell skin CA
#Brain mets s/p resection and RT
#Seizure s/o
suspect 2/2 hypoxia with infection
seizure precautions
cont AED IV
Valproate level WNL, ammonia WNL
Oncology recommending hospice appropriate
CT with postOP changes with possible residual mass with mass effect that decreased from prior
Discussed with MRI department due to patient mentation-patient might not be able to clarify if patient is in any discomfort while undergoing MRI with ICD as a result not a candidate to currently undergo any further imaging. if patient with any
discomfort while undergoing MRI and if patient is not able to communicate then risk outweighs benefits with patient with device implantation. Will monitor mentation for now and to see if patient with any improvement.
EEG: no epileptiform activity
Neurology consulted
#Acute UTI
#Acute urinary retention with PMHx of BPH
Le was removed this morning. w/retention -and was replaced back as with significant retention.
COnt Abx pending final Ucx - Enterococcus
Bcx NTD
CT abd from 08/13/24: non-obstructive nephrolithiasis, irregular exophytic mass arising from the medial lower pole of the right kidney without obstruction
No ROCAEL this admission, no concern for acute obstruction at this time
#Elevated alk.phos most likely 2/2 CA
US RUQ: The gallbladder is mildly prominent without sonographic evidence of cholelithiasis, acute cholecystitis or biliary duct dilation
#DM type 2 with neuropathy
#Hypoglycemia on admission
IVF with D5
Insulin SS, accuchecks, dm diet when more awake
hold glimepiride
#Hypercalcemia 2/2 CA with normal PTH
CA induced vs dehydration since was not able to eat for few days
IVF
follow Ca
PTHrP pending
#Cardiomyopathy s/p ICD and PPM
#Chronic HFrEF
#CAD s/p stents
proBNP 504 - no concern for exacerbation
Hx of EF 30%
Echo was technically difficult: may have been mild global hypokinesis. There is no obvious interatrial communication on 4 different microcavitation 'bubble' studies.
On amiodarone gtt -takes 200mg amiodarone daily as OP for afib?
# Hypokalemia, hypomagnesemia, hypophosphatemia
Replete as needed
#GOC
Discussed with daughters in details - DNR/DNI
As per Oncology: due to low change of meaningful recovery to the condition when can tolerate further CA treatment - recommended hospice
#Essential HTN
#HLD
Blood pressure controlled off medication
# Severe protein caloric malnutrition of chronic illness
If patient open more awake can consider DHT tube with tube feeding
Not appropriate candidate for TPN as increased risk of infection now recurrent with infection with suspected pneumonia
DVT ppx SCDs
COde DNR
Discussed with daughter Jocelyn at bedside in detail
Anticipated Discharge: > 48 hours
Subjective/Interval History
-
Date of Service: September 24, 2024
remains confused/lethargic
remains on oxygen
Objective Data
-
Labs:
Laboratory Results
09/24/24
05:24
WBC 41.0 H*
Hgb 11.9 L
Hct 34.5 L
Plt Count 151
Sodium 144
Potassium 3.1 L
Chloride 110 H
Carbon Dioxide 26
BUN 14
Creatinine 0.7
Glucose 133 H
Calcium 10.4 H
Vital Signs:
Vital Signs
Temp Pulse Resp BP Pulse Ox
98.1 F 74 18 128/65 94
09/24/24 10:19 09/24/24 11:31 09/24/24 11:31 09/24/24 06:00 09/24/24 11:31
I&O
09/23/24 09/24/24 09/25/24
06:59 06:59 06:59
Intake Total 1600 / 1600 3320 / 3320 104 / 104
Output Total 850 / 850 2250 / 2250 650 / 650
Balance 750 / 750 1070 / 1070 -546 / -546
Physical Exam
-
General: Respiratory Distress and Cachectic
HEENT: Normocephalic, Atraumatic, Anicteric, Oxygen and Other (dry mucous membranes)
Respiratory: Decreased Breath Sounds; Negative Wheezes or Crackles
GI: Soft, Nontender and Nondistended
Musculoskeletal: No Clubbing, No Cyanosis and No Edema
Neuro: Other (poorly verbal. lethargic )
Psych: Calm and Confused
Data Reviewed
-
Total Time Spent with Patient (in minutes): 55
[2024-09-24] MEDS: POTASSIUM PHOSPHATE 254.5455 MEQ IV (16:41)
--- NOTE | 2024-09-24 17:18 | CM ---
Patient from [facility] with Hx recent squamous skin CA with brain mets s/p hemicraniotomy with Dx Acute hypoxic respiratory failure 2/2 Pneumonia. GOC discussions per MD. O2 5L midflow. NPO. Receiving IVF, IV Amio, IV Abx, IV Keppra, IV
Valproate Sod. Per nurse; lethargic, forgetful. PT/OT recommends skilled rehab.
Per Dr Daugherty; patient was unable to have MRI Brain. He plans on speaking with family again tomorrow.
Spoke with Patrica, [facility]; they have reviewed the referral however cannot accept at this time. Concern expressed about patient's mentation and safety issue of fall risk informed them patient is not reported as restless. Also
discussed his ability to participate with rehab, and oncology recommendation for hospice. They will follow along with patient's status/progress and may agree to speak with family by Facetime later in the week if family is still asking for rehab,
otherwise SNF may be willing to consider him if he goes on hospice. Agree to discuss patient again 09/26 or 09/27.
CM continuing to follow.
Plan follow up with Althea Messina 09/26.
[2024-09-24 18:34] LABS: Glucose - Point of Care 162 mg/dl (70-99)
[2024-09-25] VITALS (17 sets, daily range): BP systolic 88–129; BP diastolic 53–99; PULSE 85–100; O2SAT 91; BMI 23.0
[2024-09-25 00:04] LABS: Glucose - Point of Care 157 mg/dl (70-99)
[2024-09-25] MEDS: UNASYN IV ×5 (00:51→23:24)
[2024-09-25] MEDS: NOVOLOG FLEXPEN-LOW RESISTANCE 1 UNITS SC ×2 (00:51→18:40)
[2024-09-25] MEDS: DEPACON 54 MG IV ×4 (00:51→18:08)
--- NOTE | 2024-09-25 02:00 | PTCARENOTE ---
Patient confused since start of shift, aao x1 to self. Patient continuously removing o2 nc and pulse ox, sats decrease to 80%'s with out o2 nc. RN contacted TREY Goode, order placed for b/l mitts and 4 rails for safety. Patient has 3 IV
sites, right forearm with some redness lateral to site however flushing without difficulty. Right ac flushes without difficulty and has good blood return. Left ac site also flushing without difficulty and has good blood return. Patient with b/l UE
edema. RN called TRUCK DESPATCHER to assess to ensure sites patent and no infiltrations. TRUCK DESPATCHER to bedside and confirmed all sites patent and functioning well.
Patient continues with bazan catheter and putting out clear, yellow urine. Patient repositioned for pressure relief and comfort. Dressings remain c/d/i. Will continue to monitor patient closely.
[2024-09-25] MEDS: NOVOLOG FLEXPEN-LOW RESISTANCE SC ×2 (05:21→12:25)
[2024-09-25 05:23] LABS: Glucose - Point of Care 142 mg/dl (70-99)
[2024-09-25 05:43] LABS: Hematocrit 31.8 % (39.0-52.0); Hemoglobin 10.9 g/dL (13.0-18.0); Mean Corp Hgb Conc. 34.3 g/dL (33.0-37.0); Mean Corpuscular Hgb 32.5 pg (27.0-31.0); Mean Corpuscular Volume 94.9 fL (80.0-94.0); Mean Platelet Volume 9.5 fL (7.4-10.4); Platelet Count 127 10^3/uL (130-400); Red Blood Cell Count 3.35 10^6/uL (4.70-6.10); Red Cell Dist. Width 20.1 % (11.5-14.5); White Blood Cell Count 36.2 10^3/uL (4.8-10.8)
[2024-09-25 05:55] LABS: Blood Urea Nitrogen 10 mg/dl (9-20); Calcium 9.5 mg/dl (8.4-10.2); Carbon Dioxide 28 mmol/L (22-30); Chloride 111 mmol/L (98-107); Estimated Creatinine Clearance 101 ml/min; Glucose 140 mg/dl (70-99); Potassium 3.2 mmol/L (3.5-5.1); Sodium 143 mmol/L (135-145); eGFR > 60.00
[2024-09-25] MEDS: DUONEB 3 ML INH ×4 (07:08→20:01)
[2024-09-25 07:49] LABS: % Eosinophils 0.2 % (0-6); % Immature Granulocytes 3.8 % (0-0.5); % Lymphocytes 4.3 % (20.5-51.1); % Monocytes 3.2 % (1.7-9.3); % Neutrophils 88.5 % (42.2-75.2); Absolute Eosinophils 0.1 10^3/uL (0-0.7); Absolute Immature Granulocytes 1.4 10^3/uL (0-0.05); Absolute Lymphocytes 1.6 10^3/uL (1.2-3.4); Absolute Monocytes 1.2 10^3/uL (0.1-0.6); Nucleated Red Blood Cells % 0 % (-)
--- NOTE | 2024-09-25 08:45 | W.PN.ONC2 ---
Today's Communication / Plan
-
Moribund. seems imminent (days-weeks). Not candidate for intensive oncologic therapies.
Hospice philosophy would be the best option for him if family agreeable.
Will sign off. Call back as needed.
Impression
Impression
unknown primary w/ hx of SC CA IHC/NGS with progression postop complicated by seizures/ nonambulatory following 2nd radiation course ( gamma knife f/b WBRT)
20kg weight loss in 2024
enterococcus faecalis UTI
PNA
Multifactorial encephalopathy
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
Subacute/chronic L MCA/ACCOUNT SERVICES MANAGER, BL cerebellar infarcts
Plan
Plan
hospice appropriate given failing health issues and unlikely recovery to a meaningful PS to benefit from ICI therapies
speech following for aspiration risk
PT/OT -2 assist, unable to stand or transfer
Rising WBC count, hypercalcemia - poor prognostic findings in the setting of squamous cell carcinoma
Subjective/Objective
Chief Complaint
ACS Oncology
Subjective
Non verbal
Vital Signs:
Vital Signs
Temp Pulse Resp BP Pulse Ox
99.0 F 84 18 128/99 93
09/25/24 08:00 09/25/24 07:11 09/25/24 07:11 09/25/24 04:00 09/25/24 07:11
Lab Results:
Laboratory Data
WBC 36.2 10^3/uL (4.8-10.8) H 09/25/24 05:12
Hgb 10.9 g/dL (13.0-18.0) L 09/25/24 05:12
Plt Count 127 10^3/uL (130-400) L 09/25/24 05:12
PT 13.5 Sec (11.4-14.6) 09/20/24 08:35
INR 1.00 09/20/24 08:35
APTT 33.0 Sec (23.4-35.0) 09/20/24 08:35
eGFR > 60.00 09/25/24 05:12
Physical Exam
Frail, lethargic, moribund appearance
[2024-09-25 08:47] LABS: Magnesium 1.5 mg/dl (1.6-2.3); Phosphorus 2.4 mg/dl (2.5-4.5)
--- NOTE | 2024-09-25 09:28 | W.PN.HOSP.TC ---
Today's Communication/Plan
-
Repeat CT head today
Repeat chest x-ray
Replete electrolytes
Continue with antibiotic
IV steroids
Prognosis remains guarded
Assessment / Plan
Assessment / Plan
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
pneumonia
Patient has complicated recent HX of new diagnosis of brain mass in Jun s/p hemicraniotomy, RT, renal biopsy confirming squamous cell cancer, admission with new onset seizures in [place] additional brain RT discharged from [facility] on September 03 to
[facility] with goal to improve functional status ahead of immunotherapy
As per family - patient was able to eat, talk and interact with them, upon the discharge, but 4 days before this admission became more lethargic, finally found hypoxic and brought to ED.
Mentation improving with hydration and ABx for UTI
A/P:
#Acute hypoxic respiratory failure 2/2 possible pneumonia with PMHX of COPD
#Sepsis-poa
CT chest on admission without pulmonary embolism, found b/l bibasilar consolidations cannot exclude atelectasis
remains on oxygen-currently on 7L Midflow
Pulm consult signed off
DUonebs
Bcx NTD
sputum Cx
Legionella and S.pneumonia urinary Ag neg
Vancomycin/Zosyn and doxycycline discontinued. Patient antibiotics narrowed to Unasyn
Repeat cxr
Restart steroids for now
#Acute toxic metabolic encephalopathy with aphasia
#Leukemoid reaction some aspect due to steroids and also due to malignancy
#Pulmonary nodules
#Squamous cell skin CA
#Brain mets s/p resection and RT
#Seizure s/o
suspect 2/2 hypoxia with infection
seizure precautions
cont AED IV
Valproate level WNL, ammonia WNL
Oncology recommending hospice appropriate
CT with postOP changes with possible residual mass with mass effect that decreased from prior
Discussed with MRI department due to patient mentation-patient might not be able to clarify if patient is in any discomfort while undergoing MRI with ICD as a result not a candidate to currently undergo any further imaging. if patient with any
discomfort while undergoing MRI and if patient is not able to communicate then risk outweighs benefits with patient with device implantation. Will monitor mentation for now and to see if patient with any improvement.
Repeat CT head
EEG: no epileptiform activity
Neurology consulted
#Acute UTI
#Acute urinary retention with PMHx of BPH
Le was removed this morning. w/retention -and was replaced back as with significant retention.
COnt Abx pending final Ucx - Enterococcus
Bcx NTD
CT abd from 08/13/24: non-obstructive nephrolithiasis, irregular exophytic mass arising from the medial lower pole of the right kidney without obstruction
No ROCAEL this admission, no concern for acute obstruction at this time
#Elevated alk.phos most likely 2/2 CA
US RUQ: The gallbladder is mildly prominent without sonographic evidence of cholelithiasis, acute cholecystitis or biliary duct dilation
#DM type 2 with neuropathy
#Hypoglycemia on admission
IVF with D5
Insulin SS, accuchecks, dm diet when more awake
hold glimepiride
#Hypercalcemia 2/2 CA with normal PTH
CA induced vs dehydration since was not able to eat for few days
IVF
follow Ca
PTHrP pending
#Cardiomyopathy s/p ICD and PPM
#Chronic HFrEF
#CAD s/p stents
proBNP 504 - no concern for exacerbation
Hx of EF 30%
Echo was technically difficult: may have been mild global hypokinesis. There is no obvious interatrial communication on 4 different microcavitation 'bubble' studies.
On amiodarone gtt -takes 200mg amiodarone daily as OP for afib?
# Hypokalemia, hypomagnesemia, hypophosphatemia
Replete as needed
#GOC
Discussed with daughters in details - DNR/DNI
As per Oncology: due to low change of meaningful recovery to the condition when can tolerate further CA treatment - recommended hospice
#Essential HTN
#HLD
Blood pressure controlled off medication
# Severe protein caloric malnutrition of chronic illness
If patient open more awake can consider DHT tube with tube feeding
Not appropriate candidate for TPN as increased risk of infection now recurrent with infection with suspected pneumonia
DVT ppx SCDs
COde DNR
Prognosis guarded.
Discussed with patient daughter at bedside and also with patient daughter Jocelyn over the phone in details. Explained about patient progression of disease process with severe debilitation, weight loss, malignancy, cancer, hypoxemia and recommended
hospice. Family states they want to continue with current management. Daughter does understand patient prognosis guarded.
Anticipated Discharge: > 48 hours
Subjective/Interval History
-
Date of Service: September 25, 2024
Patient remains confused and lethargic
Remains on oxygenation
Now requiring restraints
Objective Data
-
Labs:
Laboratory Results
09/25/24
05:12
WBC 36.2 H
Hgb 10.9 L
Hct 31.8 L
Plt Count 127 L
Sodium 143
Potassium 3.2 L
Chloride 111 H
Carbon Dioxide 28
BUN 10
Creatinine 0.6 L
Glucose 140 H
Calcium 9.5
Vital Signs:
Vital Signs
Temp Pulse Resp BP Pulse Ox
99.0 F 84 18 128/99 93
09/25/24 08:00 09/25/24 07:11 09/25/24 07:11 09/25/24 04:00 09/25/24 07:11
I&O
09/24/24 09/25/24 09/26/24
06:59 06:59 06:59
Intake Total 3320 / 3320 3044 / 3044
Output Total 2250 / 2250 2600 / 2600
Balance 1070 / 1070 444 / 444
Physical Exam
-
General: Respiratory Distress and Cachectic
HEENT: Normocephalic, Atraumatic, Anicteric, Oxygen and Other (dry mucous membranes)
Respiratory: Wheezes (Mild anterior) and Decreased Breath Sounds; Negative Crackles
GI: Soft, Nontender and Nondistended
Musculoskeletal: No Clubbing, No Cyanosis and No Edema
Neuro: Other (poorly verbal. lethargic )
Psych: Calm and Confused
Data Reviewed
-
Total Time Spent with Patient (in minutes): 55
[2024-09-25] MEDS: D5/0.9% SODIUM CHLORIDE 1000 IV ×2 (09:34→22:11)
[2024-09-25] MEDS: CORDARONE 104 MG IV (09:34)
[2024-09-25] MEDS: KEPPRA 1500 MG IV ×2 (09:40→20:49)
[2024-09-25] MEDS: KCL 270 MEQ IV (09:40)
[2024-09-25] MEDS: MAGNESIUM SULFATE 50 IV (10:08)
[2024-09-25] MEDS: DECADRON 6 MG IV ×2 (11:15→20:50)
[2024-09-25 12:22] LABS: Glucose - Point of Care 149 mg/dl (70-99)
[2024-09-25] MEDS: POTASSIUM PHOSPHATE 259.0909 MEQ IV (13:22)
--- NOTE | 2024-09-25 15:41 | CM ---
Patient from [facility] with Hx recent squamous skin CA with brain mets s/p hemicraniotomy with Dx Acute hypoxic respiratory failure, TME. Repeat CT Head & CXR today. O2 7L. NPO/IVF. Receiving IV Amiodarone, IV Abx, IV Decadron, IV
Keppra, IV Valproate Sod. Per nurse; lethargic, unresponsive, bilateral hand mitts. PT/OT; assist of 2, dependent, recommend skilled rehab. GOC discussions per MD.
CM continuing to follow.
Plan follow up with Althea Veras 09/26 re; acceptance.
--- NOTE | 2024-09-25 15:56 | PTCARENOTE ---
Pt's assessment as documented. V paced on tele monitor. O2 needs increasing to 8L MFNC to keep sats in the low to mid 90's. Medications administered as ordered, see MAR. Le draining yellow urine. To and from CT with this RN. Many family members
at bedside, updated on POC. Safe environment maintained.
--- NOTE | 2024-09-25 16:00 | PTCARENOTE ---
Pt calm with family at bedside; b/l mitts removed at this time.
[2024-09-25 17:57] LABS: Glucose - Point of Care 198 mg/dl (70-99)
[2024-09-25] MEDS: TYLENOL/FEVERALL 650 MG RECTAL (18:06)
--- NOTE | 2024-09-25 22:47 | PTCARENOTE ---
Daughter(Jocelyn) at bedside, requested pt have bilateral mitts on tonight when she leaves to prevent pt from pulling lines/tubes. Order obtained from TREY Murillo. Pt continues to be lethargic and confused, but able to state and follow simple
commands. 5L MFNC in place, Sp02 92-96%. Le draining clear yellow urine. V-paced on the monitor. Repositioning and pressure off-loading provided; refer to worklist. Bed alarm set. Daughter thankful for care.
[2024-09-25 23:57] LABS: Glucose - Point of Care 200 mg/dl (70-99)
[2024-09-26] VITALS (17 sets, daily range): BP systolic 74–133; BP diastolic 26–83; BMI 22.8
[2024-09-26] MEDS: DEPACON 54 MG IV ×4 (00:07→17:48)
[2024-09-26] MEDS: NOVOLOG FLEXPEN-LOW RESISTANCE 2 UNITS SC ×2 (00:11→06:04)
[2024-09-26 05:02] LABS: Blood Urea Nitrogen 11 mg/dl (9-20); Calcium 9.2 mg/dl (8.4-10.2); Carbon Dioxide 27 mmol/L (22-30); Chloride 112 mmol/L (98-107); Estimated Creatinine Clearance 86 ml/min; Glucose 208 mg/dl (70-99); Potassium 3.6 mmol/L (3.5-5.1); Sodium 143 mmol/L (135-145); eGFR > 60.00
[2024-09-26 05:11] LABS: Hemoglobin 10.9 g/dL (13.0-18.0); Mean Corp Hgb Conc. 34.1 g/dL (33.0-37.0); Mean Corpuscular Hgb 32.5 pg (27.0-31.0); Mean Corpuscular Volume 95.5 fL (80.0-94.0); Mean Platelet Volume 9.6 fL (7.4-10.4); Platelet Count 97 10^3/uL (130-400); Red Blood Cell Count 3.35 10^6/uL (4.70-6.10); Red Cell Dist. Width 20.1 % (11.5-14.5); White Blood Cell Count 51.5 10^3/uL (4.8-10.8)
[2024-09-26] MEDS: UNASYN IV ×2 (05:52→12:55)
--- NOTE | 2024-09-26 06:20 | PTCARENOTE ---
TREY Murillo made aware of critical WBC 51.5
[2024-09-26] MEDS: DUONEB 3 ML INH ×2 (07:19→11:32)
[2024-09-26] MEDS: D5/0.9% SODIUM CHLORIDE 1000 IV (07:57)
[2024-09-26 08:03] LABS: Glucose - Point of Care 219 mg/dl (70-99)
[2024-09-26 08:40] LABS: % Immature Granulocytes 4.3 % (0-0.5); % Lymphocytes 1.7 % (20.5-51.1); % Monocytes 1.2 % (1.7-9.3); % Neutrophils 92.8 % (42.2-75.2); Absolute Immature Granulocytes 2.2 10^3/uL (0-0.05); Absolute Lymphocytes 0.9 10^3/uL (1.2-3.4); Absolute Monocytes 0.6 10^3/uL (0.1-0.6); Absolute Neutrophils 47.8 10^3/uL (1.4-6.5); Nucleated Red Blood Cells % 0 % (-)
[2024-09-26 09:15] LABS: Magnesium 1.6 mg/dl (1.6-2.3); Phosphorus 3.1 mg/dl (2.5-4.5)
[2024-09-26] MEDS: KEPPRA 1500 MG IV ×2 (09:37→20:42)
[2024-09-26] MEDS: CORDARONE 104 MG IV (09:38)
[2024-09-26] MEDS: DECADRON 6 MG IV (09:40)
--- NOTE | 2024-09-26 11:41 | PTCARENOTE ---
Pt lethargic minimally responsive, daughter in room request Mitts off. Pt strict NPO. copious diarrhea. Stool sent for CDiff
--- NOTE | 2024-09-26 12:00 | PTCARENOTE ---
Family has decided on comfort care Marifer Daugherty notified and spoke with family at length. Comfort care now ordered
--- NOTE | 2024-09-26 12:00 | PTCARENOTE ---
Pt C diff negative family aware
--- NOTE | 2024-09-26 12:32 | W.PN.HOSP.TC ---
Addendum entered and electronically signed by Ulisses Daugherty MD 09/26/24 12:56:
And fluids, antibiotics and steroids discontinued. All other meds discontinued we will continue with antiepileptics for comfort.
Original Note:
Today's Communication/Plan
-
Comfort measures
Cardiology for AICD deactivation
Assessment / Plan
Assessment / Plan
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
pneumonia
Patient has complicated recent HX of new diagnosis of brain mass in Jun s/p hemicraniotomy, RT, renal biopsy confirming squamous cell cancer, admission with new onset seizures in additional brain RT discharged from [facility] on September 03 to
[facility] with goal to improve functional status ahead of immunotherapy
A/P:
#Acute hypoxic respiratory failure 2/2 possible pneumonia with PMHX of COPD
#Sepsis-poa
CT chest on admission without pulmonary embolism, found b/l bibasilar consolidations cannot exclude atelectasis
remains on oxygen-currently on 7L Midflow
Pulm consult signed off
DUonebs
Bcx NTD
sputum Cx
Legionella and S.pneumonia urinary Ag neg
Vancomycin/Zosyn and doxycycline discontinued. Patient antibiotics narrowed to Unasyn
Repeat cxr
Restart steroids for now
With diarrhea. Possible C. difficile. White count uptrend noted. Before can be further treated and manage family opted for comfort
Discussed with patient 3 daughters multiple times throughout today. Showed them patient chest x-ray from last week and this morning. Also showed them CAT scan imaging and results. Also showed them the labs. They have been unable to log into
portal and in the midst of getting the data. Discussed with them patient long-term prognosis and also discussed patient hospitalization and all results so far. Patient with episode of further hypotension. Patient continues to remain lethargic.
Did offer patient to be started on pressors for stabilization. However they do realize that is a temporizing measures and they did not want further continue with aggressive management. Family has opted for comfort measures. Understand and agreed
for AICD to be deactivated. Morphine and Ativan as needed and they agreed for it. Comfort measures orders placed. Discussed with RN. Discussed with cardiology for AICD deactivation.
#Acute toxic metabolic encephalopathy with aphasia
#Leukemoid reaction some aspect due to steroids and also due to malignancy
#Pulmonary nodules
#Squamous cell skin CA
#Brain mets s/p resection and RT
#Seizure s/o
suspect 2/2 hypoxia with infection
seizure precautions
cont AED IV
Valproate level WNL, ammonia WNL
Oncology recommending hospice appropriate
CT with postOP changes with possible residual mass with mass effect that decreased from prior
Discussed with MRI department due to patient mentation-patient might not be able to clarify if patient is in any discomfort while undergoing MRI with ICD as a result not a candidate to currently undergo any further imaging. if patient with any
discomfort while undergoing MRI and if patient is not able to communicate then risk outweighs benefits with patient with device implantation. Will monitor mentation for now and to see if patient with any improvement.
Repeat CT head
EEG: no epileptiform activity
Neurology consulted
#Acute UTI
#Acute urinary retention with PMHx of BPH
Le was removed this morning. w/retention -and was replaced back as with significant retention.
COnt Abx pending final Ucx - Enterococcus
Bcx NTD
CT abd from 08/13/24: non-obstructive nephrolithiasis, irregular exophytic mass arising from the medial lower pole of the right kidney without obstruction
No ROCAEL this admission, no concern for acute obstruction at this time
#Elevated alk.phos most likely 2/2 CA
US RUQ: The gallbladder is mildly prominent without sonographic evidence of cholelithiasis, acute cholecystitis or biliary duct dilation
#DM type 2 with neuropathy
#Hypoglycemia on admission
IVF with D5
Insulin SS, accuchecks, dm diet when more awake
hold glimepiride
#Hypercalcemia 2/2 CA with normal PTH
CA induced vs dehydration since was not able to eat for few days
IVF
follow Ca
PTHrP pending
#Cardiomyopathy s/p ICD and PPM
#Chronic HFrEF
#CAD s/p stents
proBNP 504 - no concern for exacerbation
Hx of EF 30%
Echo was technically difficult: may have been mild global hypokinesis. There is no obvious interatrial communication on 4 different microcavitation 'bubble' studies.
On amiodarone gtt -takes 200mg amiodarone daily as OP for afib?
# Hypokalemia, hypomagnesemia, hypophosphatemia
Replete as needed
#GOC
Discussed with daughters in details - DNR/DNI
As per Oncology: due to low change of meaningful recovery to the condition when can tolerate further CA treatment - recommended hospice
#Essential HTN
#HLD
Blood pressure controlled off medication
# Severe protein caloric malnutrition of chronic illness
If patient open more awake can consider DHT tube with tube feeding
Not appropriate candidate for TPN as increased risk of infection now recurrent with infection with suspected pneumonia
DVT ppx SCDs
COde DNR
Anticipated Discharge: > 48 hours
Subjective/Interval History
-
Date of Service: September 26, 2024
Overnight patient with multiple episodes of diarrhea
Patient with increasing WBC count
Remains lethargic in the morning
Remains on oxygenation
Objective Data
-
Labs:
Laboratory Results
09/26/24
04:13
WBC 51.5 H*
Hgb 10.9 L
Hct 32.0 L
Plt Count 97 L D
Sodium 143
Potassium 3.6
Chloride 112 H
Carbon Dioxide 27
BUN 11
Creatinine 0.7
Glucose 208 H
Calcium 9.2
Vital Signs:
Vital Signs
Temp Pulse Resp BP Pulse Ox
97.9 F 65 18 105/52 97
09/26/24 11:14 09/26/24 11:34 09/26/24 11:34 09/26/24 10:00 09/26/24 11:34
I&O
09/25/24 09/26/24 09/27/24
06:59 06:59 06:59
Intake Total 3044 / 3044 940 / 940
Output Total 2600 / 2600 1900 / 1900
Balance 444 / 444 -960 / -960
Physical Exam
-
General: Respiratory Distress and Cachectic
HEENT: Normocephalic, Atraumatic, Anicteric, Oxygen and Other (dry mucous membranes)
Respiratory: Wheezes (Mild anterior) and Decreased Breath Sounds; Negative Crackles
GI: Soft, Nontender and Nondistended
Musculoskeletal: No Clubbing, No Cyanosis and No Edema
Neuro: Other (poorly verbal. lethargic )
Psych: Calm and Confused
Data Reviewed
-
Total Time Spent with Patient (in minutes): 56
--- NOTE | 2024-09-26 12:37 | CHAP ---
Emotional and spiritual support provided. Prayers and stories shared. Will follow as able.
--- NOTE | 2024-09-26 12:42 | W.CAR.ICD ---
ICD Inactivation Request
-
Credit Card Analyst Notified: [employer]
The above vendor has been contacted to inactivate the patient's Implantable Cardioverter Defibrillator.
[2024-09-26] MEDS: DEPACON IV (12:54)
[2024-09-26] MEDS: NOVOLOG FLEXPEN-LOW RESISTANCE SC (12:55)
[2024-09-26] MEDS: TYLENOL/FEVERALL 650 MG RECTAL (15:44)
--- NOTE | 2024-09-26 17:01 | PTCARENOTE ---
Family asking for IV fluids as pt seems more alert and his BP is better at this time.
[2024-09-26] MEDS: NSS 1000 IV (17:44)
--- NOTE | 2024-09-26 23:44 | W.PN.UPDATE ---
Update Note
Progress Note Update
RN voiced concern regarding family members needing more clarifications of present comfort status. Family seen and seemed concern with patient (father) not been on antibiotics at present. Thoroughly explained the current status of the patient based
on the providers notes, reports and explained the palliative, comfort measure verse hospice options. Family agrees they want their father to be comfortable but would still like IV antibiotics, anti seizure medications to be in place for comfort.
Family expressed want to explore the options available with hospice team. Consult for hospice entered.
[2024-09-27] VITALS: BP 109/61
[2024-09-27] MEDS: DEPACON 54 MG IV ×5 (00:39→23:25)
[2024-09-27 01:10] VITALS: BP 146/89
--- NOTE | 2024-09-27 01:19 | PTCARENOTE ---
At beginning of shift patient received a bed to be transferred to on [address] [place] [address]. Explained to family the situation and they were visibly upset stating that they were confused to what was going on and why patient was not on IV abx anymore. Explained to
family that patient was ordered 'comfort' measures and what that entails. Family stated that they did not 'consent' to that and they were upset that patient was 'taken off abx, scds, ivf and immediately being transferred to another unit.' Nursing
supervisor telephone clerks made aware and had 30 min conversation with family. Family stated that they didn't want 'comfort' that they wanted 'palliative.' order caller provider made aware of situation and came up to bedside to speak to family for over 30 min and sort
out confusion with orders and situation. Family ultimately decided again that they would like to go through with 'comfort care' but wanted patient on IV abx. Patient then transferred to [address] [place] [address] with family at bedside.
[2024-09-27] MEDS: UNASYN IV ×4 (02:15→20:26)
--- NOTE | 2024-09-27 02:25 | PTCARENOTE ---
Pts daughter unable to understand the concept of hospice and comfort measures. Pt family wants everything done to a extent. They were explained about making the pt comfortable. SPEECH TEACHER notified. IVF and IV Abx continues till hospice speaks to them. Pt is
AAOx2. drowsy and restless at times. Pt is on 3L NC SaO2 94% tachypneic , shallow breathing. BP stable and afebrile. Call kurtz within reach. Daughters are staying overnight,
[2024-09-27 05:51] LABS: Glucose - Point of Care 112 mg/dl (70-99)
[2024-09-27 07:03] VITALS: BP 143/65
--- NOTE | 2024-09-27 08:30 | PTOTSP ---
Reviewed chart and noted pt now on comfort measures and hospice is being consulted. PT will sign off.
--- NOTE | 2024-09-27 09:30 | CM ---
Reviewed the chart notes. CM consult for hospice. Referral sent via [facility] for Hospice.
[2024-09-27] MEDS: KEPPRA 1500 MG IV ×2 (09:40→20:13)
--- NOTE | 2024-09-27 11:12 | W.PN.HOSP.TC ---
Today's Communication/Plan
-
Speech therapy reevaluation
See note
Continue with IV medication and fluids
Check labs in morning
Assessment / Plan
Assessment / Plan
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
pneumonia
Patient has complicated recent HX of new diagnosis of brain mass in Jun s/p hemicraniotomy, RT, renal biopsy confirming squamous cell cancer, admission with new onset seizures in [place] additional brain RT discharged from [facility] on September 03 to
[facility] with goal to improve functional status ahead of immunotherapy
A/P:
Goals of care 09/27/24
Daughter has agreed for comfort measures with the caveat to continue with IV antibiotics, IV steroids, IV antiepileptics and IV fluids for the interim. They would like to monitor patient through the weekend. They understand that patient has AICD
which has been deactivated and that patient with arrhythmia patient would pass. They did not want any aggressive management if patient were to develop hypotension or escalate level of care. Hospice discussed with them in detail. Discussed with
hospice team. Discussed with through daughter in detail.
#Acute hypoxic respiratory failure 2/2 possible pneumonia with PMHX of COPD
#Sepsis-poa
CT chest on admission without pulmonary embolism, found b/l bibasilar consolidations cannot exclude atelectasis
remains on oxygen-currently on 7L Midflow
Pulm consult signed off
DUonebs
Bcx NTD
sputum Cx
Legionella and S.pneumonia urinary Ag neg
Vancomycin/Zosyn and doxycycline discontinued. Patient antibiotics narrowed to Unasyn
Repeat cxr
Restart steroids for now
cdiff was negative.
#Acute toxic metabolic encephalopathy with aphasia
#Leukemoid reaction some aspect due to steroids and also due to malignancy
#Pulmonary nodules
#Squamous cell skin CA
#Brain mets s/p resection and RT
#Seizure s/o
suspect 2/2 hypoxia with infection
seizure precautions
cont AED IV
Valproate level WNL, ammonia WNL
Oncology recommending hospice appropriate
CT with postOP changes with possible residual mass with mass effect that decreased from prior
Discussed with MRI department due to patient mentation-patient might not be able to clarify if patient is in any discomfort while undergoing MRI with ICD as a result not a candidate to currently undergo any further imaging. if patient with any
discomfort while undergoing MRI and if patient is not able to communicate then risk outweighs benefits with patient with device implantation. Will monitor mentation for now and to see if patient with any improvement.
Repeat CT head
EEG: no epileptiform activity
Neurology consulted
#Acute UTI
#Acute urinary retention with PMHx of BPH
Le was removed this morning. w/retention -and was replaced back as with significant retention.
COnt Abx pending final Ucx - Enterococcus
Bcx NTD
CT abd from 08/13/24: non-obstructive nephrolithiasis, irregular exophytic mass arising from the medial lower pole of the right kidney without obstruction
No ROCAEL this admission, no concern for acute obstruction at this time
#Elevated alk.phos most likely 2/2 CA
US RUQ: The gallbladder is mildly prominent without sonographic evidence of cholelithiasis, acute cholecystitis or biliary duct dilation
#DM type 2 with neuropathy
#Hypoglycemia on admission
IVF with D5
Insulin SS, accuchecks, dm diet when more awake
hold glimepiride
#Hypercalcemia 2/2 CA with normal PTH
CA induced vs dehydration since was not able to eat for few days
IVF
follow Ca
PTHrP elevated as expected with setting of malignancy
#Cardiomyopathy s/p ICD and PPM
#Chronic HFrEF
#CAD s/p stents
proBNP 504 - no concern for exacerbation
Hx of EF 30%
Echo was technically difficult: may have been mild global hypokinesis. There is no obvious interatrial communication on 4 different microcavitation 'bubble' studies.
On amiodarone gtt -takes 200mg amiodarone daily as OP for afib?
# Hypokalemia, hypomagnesemia, hypophosphatemia
Replete as needed
#GOC
Discussed with daughters in details - DNR/DNI
As per Oncology: due to low change of meaningful recovery to the condition when can tolerate further CA treatment - recommended hospice
#Essential HTN
#HLD
Blood pressure controlled off medication
# Severe protein caloric malnutrition of chronic illness
If patient open more awake can consider DHT tube with tube feeding
Not appropriate candidate for TPN as increased risk of infection now recurrent with infection with suspected pneumonia
DVT ppx SCDs
COde DNR
Discussed with patient 3 daughters multiple times throughout on 09/26/24 Showed them patient chest x-ray from last week and this morning. Also showed them CAT scan imaging and results. Also showed them the labs. They have been unable to log into
portal and in the midst of getting the data. Discussed with them patient long-term prognosis and also discussed patient hospitalization and all results so far. Patient with episode of further hypotension. Patient continues to remain lethargic.
Did offer patient to be started on pressors for stabilization. However they do realize that is a temporizing measures and they did not want further continue with aggressive management. Family has opted for comfort measures. Understand and agreed
for AICD to be deactivated. Morphine and Ativan as needed and they agreed for it. Comfort measures orders placed. Discussed with RN. Discussed with cardiology for AICD deactivation.
Discussed with 2 daughters at bedside in detail
Discussed with hospice team
Anticipated Discharge: > 48 hours
Subjective/Interval History
-
Date of Service: September 27, 2024
tx to tele
remains lethargic
on oxygen
Objective Data
-
Vital Signs:
Vital Signs
Temp Pulse Resp BP Pulse Ox
97.7 F 85 22 143/65 93
09/27/24 07:03 09/27/24 07:03 09/27/24 01:10 09/27/24 07:03 09/27/24 07:03
I&O
09/26/24 09/27/24 09/28/24
06:59 06:59 06:59
Intake Total 940 / 940 870 / 870
Output Total 1900 / 1900 1750 / 1750
Balance -960 / -960 -880 / -880
Data Reviewed
-
Total Time Spent with Patient (in minutes): 56
[2024-09-27 12:49] LABS: PTH Related Peptide LC-MS/MS 31.2 pmol/L (0.0-2.3)
[2024-09-27] MEDS: TYLENOL/FEVERALL 650 MG RECTAL (12:51)
--- NOTE | 2024-09-27 13:05 | HOSPNOTE ---
Spoke with three daughters and explained hospice and the philosophy. At this time the family would like fluids, antibiotics, steroids and speech evaluation. Spoke to Attending and made aware of the request. If the patient needs morphine or ativan
they are in agreement to keep him comfortable. They do not want a rapid called if his BP becomes too low. They feel this is happening too quickly and need sometime to process. They are realistic and understand he may pass away and they are in
agreement to allow nature to happen and would want medications for a peaceful passing. I will evaluate on Monday and speak with family again. If hospice is needed over the weekend please reach out to the hospice nurse investor relations manager.
[2024-09-27] MEDS: DECADRON 6 MG IV (15:34)
[2024-09-27] MEDS: DUONEB 3 ML INH ×2 (15:38→19:55)
[2024-09-27 18:37] LABS: Glucose - Point of Care 135 mg/dl (70-99)
[2024-09-27] MEDS: MORPHINE SULFATE 2 MG IV (20:12)
[2024-09-27] MEDS: NSS 1000 IV (20:15)
[2024-09-27 23:12] VITALS: BP 130/70
[2024-09-27 23:34] LABS: Glucose - Point of Care 123 mg/dl (70-99)
[2024-09-28] MEDS: UNASYN IV ×3 (01:03→15:25)
[2024-09-28 04:13] VITALS: BP 126/65
[2024-09-28] MEDS: DEPACON 54 MG IV ×2 (05:07→11:48)
[2024-09-28 05:14] LABS: Glucose - Point of Care 95 mg/dl (70-99)
[2024-09-28 07:40] VITALS: BP 154/66
[2024-09-28] MEDS: DUONEB 3 ML INH (07:42)
[2024-09-28] MEDS: KEPPRA 1500 MG IV (08:03)
[2024-09-28] MEDS: ROBINUL 0.2 MG IV ×2 (08:09→15:11)
[2024-09-28] MEDS: MORPHINE SULFATE 2 MG IV ×3 (08:09→15:11)
[2024-09-28] MEDS: ATIVAN 1 MG IV ×3 (08:10→15:11)
--- NOTE | 2024-09-28 11:30 | W.PN.HOSP.TC ---
Addendum entered and electronically signed by Ulisses Daugherty MD 09/28/24 12:47:
Family stated they would like to Further discontinue fluids.
Original Note:
Today's Communication/Plan
-
Continue with current management
Prognosis remains guarded
Assessment / Plan
Assessment / Plan
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
pneumonia
Patient has complicated recent HX of new diagnosis of brain mass in Jun s/p hemicraniotomy, RT, renal biopsy confirming squamous cell cancer, admission with new onset seizures in [place] additional brain RT discharged from [facility] on September 03 to
[facility] with goal to improve functional status ahead of immunotherapy
A/P:
Goals of care 09/27/24
Daughter has agreed for comfort measures with the caveat to continue with IV antibiotics, IV steroids, IV antiepileptics and IV fluids for the interim. They would like to monitor patient through the weekend. They understand that patient has AICD
which has been deactivated and that patient with arrhythmia patient would pass. They did not want any aggressive management if patient were to develop hypotension or escalate level of care. Hospice discussed with them in detail. Discussed with
hospice team. Discussed with 3 daughter in detail.
#Acute hypoxic respiratory failure 2/2 possible pneumonia with PMHX of COPD
#Sepsis-poa
CT chest on admission without pulmonary embolism, found b/l bibasilar consolidations cannot exclude atelectasis
remains on oxygen-currently on 7L Midflow
Pulm consult signed off
DUonebs
Bcx NTD
sputum Cx
Legionella and S.pneumonia urinary Ag neg
Vancomycin/Zosyn and doxycycline discontinued. Patient antibiotics narrowed to Unasyn
Repeat cxr
Restart steroids for now
cdiff was negative.
#Acute toxic metabolic encephalopathy with aphasia
#Leukemoid reaction some aspect due to steroids and also due to malignancy
#Pulmonary nodules
#Squamous cell skin CA
#Brain mets s/p resection and RT
#Seizure s/o
suspect 2/2 hypoxia with infection
seizure precautions
cont AED IV
Valproate level WNL, ammonia WNL
Oncology recommending hospice appropriate
CT with postOP changes with possible residual mass with mass effect that decreased from prior
Discussed with MRI department due to patient mentation-patient might not be able to clarify if patient is in any discomfort while undergoing MRI with ICD as a result not a candidate to currently undergo any further imaging. if patient with any
discomfort while undergoing MRI and if patient is not able to communicate then risk outweighs benefits with patient with device implantation. Will monitor mentation for now and to see if patient with any improvement.
Repeat CT head
EEG: no epileptiform activity
Neurology consulted
#Acute UTI
#Acute urinary retention with PMHx of BPH
Le was removed however w/retention -and was replaced back as with significant retention.
COnt Abx pending final Ucx - Enterococcus
Bcx NTD
CT abd from 08/13/24: non-obstructive nephrolithiasis, irregular exophytic mass arising from the medial lower pole of the right kidney without obstruction
No ROCAEL this admission, no concern for acute obstruction at this time
#Elevated alk.phos most likely 2/2 CA
US RUQ: The gallbladder is mildly prominent without sonographic evidence of cholelithiasis, acute cholecystitis or biliary duct dilation
#DM type 2 with neuropathy
#Hypoglycemia on admission
IVF with D5
Insulin SS, accuchecks, dm diet when more awake
hold glimepiride
#Hypercalcemia 2/2 CA with normal PTH
CA induced vs dehydration since was not able to eat for few days
IVF
follow Ca
PTHrP elevated as expected with setting of malignancy
#Cardiomyopathy s/p ICD and PPM
#Chronic HFrEF
#CAD s/p stents
proBNP 504 - no concern for exacerbation
Echo was technically difficult: may have been mild global hypokinesis. There is no obvious interatrial communication on 4 different microcavitation 'bubble' studies.
On amiodarone gtt -takes 200mg amiodarone daily as OP for afib?
# Hypokalemia, hypomagnesemia, hypophosphatemia
Replete as needed
#GOC
Discussed with daughters in details - DNR/DNI
As per Oncology: due to low change of meaningful recovery to the condition when can tolerate further CA treatment - recommended hospice
#Essential HTN
#HLD
Blood pressure controlled off medication
# Severe protein caloric malnutrition of chronic illness
If patient open more awake can consider DHT tube with tube feeding
Not appropriate candidate for TPN as increased risk of infection now recurrent with infection with suspected pneumonia
DVT ppx SCDs
COde DNR
Discussed with patient 3 daughters multiple times throughout on 09/26/24 Showed them patient chest x-ray from last week and this morning. Also showed them CAT scan imaging and results. Also showed them the labs. They have been unable to log into
portal and in the midst of getting the data. Discussed with them patient long-term prognosis and also discussed patient hospitalization and all results so far. Patient with episode of further hypotension. Patient continues to remain lethargic.
Did offer patient to be started on pressors for stabilization. However they do realize that is a temporizing measures and they did not want further continue with aggressive management. Family has opted for comfort measures. Understand and agreed
for AICD to be deactivated. Morphine and Ativan as needed and they agreed for it. Comfort measures orders placed. Discussed with RN. Discussed with cardiology for AICD deactivation.
Discussed with 3 daughters at bedside in detail-who once again explained patient with significant deconditioning with malignancy, immunosuppressive state with malignancy, severe infection and prognosis remains guarded. They want to continue
currently with IV antibiotics, steroids and antiepileptics and IV fluids. Understand and agreeable for morphine and Ativan if needed. Plan is to continue with the current management over the weekend and reassess with hospice team next week. More
than 15 minutes spent discussing with all family members. Did state about blood work and they stated they do not want to continue with any further blood sticks
Anticipated Discharge: > 48 hours
Subjective/Interval History
-
Date of Service: September 28, 2024
remains lethargic
on 6L oxygen
Objective Data
-
Vital Signs:
Vital Signs
Temp Pulse Resp BP Pulse Ox
97.7 F 66 18 154/66 92
09/28/24 07:40 09/28/24 07:45 09/28/24 07:45 09/28/24 07:40 09/28/24 07:45
I&O
09/27/24 09/28/24 09/29/24
06:59 06:59 06:59
Intake Total 870 / 870 1715 / 1715
Output Total 1750 / 1750 1900 / 1900
Balance -880 / -880 -185 / -185
[2024-09-28] MEDS: NSS 1000 IV (11:52)
[2024-09-28] MEDS: TYLENOL/FEVERALL 650 MG RECTAL (12:06)
[2024-09-28 12:27] LABS: Glucose - Point of Care 114 mg/dl (70-99)
--- NOTE | 2024-09-28 14:36 | HOSPNOTE ---
Notified by Floor Nurse Zeny that patient is declining rapidly and will be transitioning to comfort measures. Per Zeny does appear imminent. Family was bedside and struggling. Zeny asked for hospice to give support. Josh Garcia and
Hospice Nurse Mary met with family and provided in person support to them. Zeny updated. Will continue to follow/ be available for support.
--- NOTE | 2024-09-28 15:18 | W.PN.UPDATE ---
Update Note
Progress Note Update
Patient continued to decline with increasing respiration. Persistently remains lethargic and on 6 L mid flow nasal cannula. Patient with severe tachypnea and abdominal breathing. Patient receiving morphine push currently. Hospice team
re-evaluated the patient and had a prolonged discussion with entire family. Hospice team discussed with them about patient prognosis and current status and patient continued to decline with severe tachypnea, increased oxygen requirement and the
patient would benefit from morphine infusion. This was also discussed with all 3 patient daughter by myself and answered once again all there questions to the satisfaction. They are agreeable for proceeding with morphine infusion to make patient
comfortable and he did not want patient to be any discomfort and or pain. They understand patient is imminent.
Discussed with hospice nurse at bedside in details
[2024-09-28] MEDS: DECADRON IV (15:25)
[2024-09-28 15:30] VITALS: BP 75/39
--- NOTE | 2024-09-28 15:38 | HOSPNOTE ---
This SN alongside Service Dog Mauri went in to meet with the family, discuss decline, and provide emotional support and education. Patient's family struggling with the patient's decline and what to expect, frequently asking whether they are doing
the right thing with deciding to stop fluids, and moving towards comfort measures. Patient with guppy breathing, mottling to the bases of feet, fully unresponsive. Much emotional support provided. Discussed at length the medications including a
morphine drip, much education on medication management and protection from pain, dyspnea, and anxiety that the drip would provide. Family verbalizes understanding and that they wish for the morphine drip at this time. Discussed with patient's RN and
with Dr. Daugherty, all in agreement to start morphine drip. Hospice to follow as patient appears imminent at this time.
[2024-09-28] MEDS: MORPHINE 100 IV (16:00)
--- NOTE | 2024-09-28 16:11 | CHAP ---
Visited Kapil and family at 1pm. Kapil was sleeping, non-responsive, and his family surrounded him with love. They welcomed prayer for him. We commended Kapil to God, giving thanks for his life and love, and asking peace for all. Emotional and
spiritual support provided, along with assurance of our on-going availability.
[2024-09-28] MEDS: DEPACON IV (17:25)
--- NOTE | 2024-09-28 19:19 | W.PN.DEATH ---
Pronouncement of
-
Called to see patient to pronounce.
No spontaneous heart tones or respirations noted.
Patient not responsive to verbal stimuli.
Patient is pronounced .
Time of : 18:58
Date of : 09/28/24
Cause of : Acute hypoxic respiratory failure due to possible pneumonia with past medical history of COPD
Family Notified: Yes (Family at bedside)
--- NOTE | 2024-09-28 22:30 | PTCARENOTE ---
pt at 185. informed CERTIFIED PHARMACIST ASSISTANT Ernie. [facility] called. family at bedside.
--- NOTE | 2024-09-29 08:04 | W.DCSUMMARY ---
Discharge Summary
Discharge Data
Date of Admission: 09/19/24
Date of Discharge: 09/29/24
-
Pending Results: No
Hospital Course
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
pneumonia. Patient has complicated recent HX of new diagnosis of brain mass in Jun s/p hemicraniotomy, RT, renal biopsy confirming squamous cell cancer, admission with new onset seizures in August and additional brain RT discharged from [facility] on September
to [facility] re[facility] with goal to improve functional status ahead of immunotherapy. Patient was awaiting hospitalization by oncology and neurology and pulmonary. Patient was found to be septic on admission. Patient was on broad-spectrum
antibiotics with vancomycin, doxycycline and Zosyn. Patient required persistent oxygenation was unable to wean down. Bronchodilators were continued. IV steroids were also started. Patient was transitioned to IV antiepileptics. Patient with
severe lethargy and was not safe to tolerate p.o. intake. Patient was eval by speech pathologist and recommended persistent NPO. Due to patient's severe lethargy patient was not safe to undergo Dobbhoff tube placement. Patient with risk of
infection was not on TPN. Patient underwent brain imaging which showed stable postoperative changes of right parietal craniotomy with mildly heterogeneous appearance of the resection cavity. There are bilateral mildly heterogeneous extra-axial
collections which are stable in appearance from prior. Patient continued to remain lethargic. Patient was not safe enough to tolerate p.o. intake. Patient was remained on IV fluids. Aggressive IV electrolytes were repleted. Patient with severe
leukemoid reaction which was seen multifactorial due to infection and malignancy. Patient was also found with Enterococcus UTI. Patient was also found to have severe hypercalcemia which was deemed secondary to malignancy. Patient also with severe
protein caloric malnutrition chronic illness. Patient hospitalization and prognosis was discussed with patient 3 daughters throughout hospitalization. Patient continued to remain lethargic, episode of hypotension, persistent hypoxemia, tachypneic,
severely deconditioned, without any p.o. intake and continue to unfortunately decline. Family agreed to transition patient to comfort measures. AICD was deactivated. Family still needed more time and patient was continued on IV fluids,
antibiotics, steroids and antiepileptics. Patient continues to remain lethargic and tachypneic on oxygen. Family decided further after more discussion with hospice to transition patient to comfort measures with morphine infusion. Patient
on 09/28/2024 at 1858.
Discharge Plan
-
Patient Disposition:
Date/Time
Date/Time: 09/28/24 18:58
Discharge Date and Time
Discharge Date/Time: 09/28/24 18:58
Print Language: SYRIAC
== END 2024-09-28 18:58 | disposition expired | DRG 871 ==
LOC: 2 NORTH 22:14
PROVIDERS: Clinical Nurse Specialist Family Health; Internal Medicine; ADMITTING PHYSICIAN Hospitalist; ATTENDING PHYSICIAN Hospitalist; CONSULT PHYSICIAN Internal Medicine Critical Care Medicine; CONSULT PHYSICIAN Psychiatry & Neurology Neurology; EMERGENCY PHYSICIAN Emergency Medicine; FAMILY PHYSICIAN Nurse Practitioner Adult Health; OTHER PHYSICIAN Internal Medicine Hematology & Oncology
PROC: 5A09357 Assistance with Respiratory Ventilation, Less than 24 Consecutive Hours, Continuous Positive Airway Pressure (ICD-10-PCS; 2024-09-19)
DX: A41.81 Sepsis due to Enterococcus (principal); E43 Unspecified severe protein-calorie malnutrition; G92.8 Other toxic encephalopathy; J96.21 Acute and chronic respiratory failure with hypoxia; G93.41 Metabolic encephalopathy; J18.9 Pneumonia, unspecified organism; Z66 Do not resuscitate; Z51.5 Encounter for palliative care; C79.31 Secondary malignant neoplasm of brain; J44.0 Chronic obstructive pulmonary disease with (acute) lower respiratory infection; C79.02 Secondary malignant neoplasm of left kidney and renal pelvis; C79.01 Secondary malignant neoplasm of right kidney and renal pelvis; I50.22 Chronic systolic (congestive) heart failure; N39.0 Urinary tract infection, site not specified; R47.01 Aphasia; I42.9 Cardiomyopathy, unspecified; I11.0 Hypertensive heart disease with heart failure; I25.10 Atherosclerotic heart disease of native coronary artery without angina pectoris; I44.7 Left bundle-branch block, unspecified; E78.2 Mixed hyperlipidemia; C44.92 Squamous cell carcinoma of skin, unspecified; R56.9 Unspecified convulsions; E11.649 Type 2 diabetes mellitus with hypoglycemia without coma; G47.00 Insomnia, unspecified; G44.89 Other headache syndrome; E83.52 Hypercalcemia; K21.9 Gastro-esophageal reflux disease without esophagitis; N40.1 Benign prostatic hyperplasia with lower urinary tract symptoms; R33.8 Other retention of urine; D72.823 Leukemoid reaction; E11.40 Type 2 diabetes mellitus with diabetic neuropathy, unspecified; E87.6 Hypokalemia; E83.42 Hypomagnesemia; E83.39 Other disorders of phosphorus metabolism; Z68.22 Body mass index [BMI] 22.0-22.9, adult; Z95.810 Presence of automatic (implantable) cardiac defibrillator; Z95.5 Presence of coronary angioplasty implant and graft; Z79.4 Long term (current) use of insulin; Z79.84 Long term (current) use of oral hypoglycemic drugs; Z79.899 Other long term (current) drug therapy; Z87.820 Personal history of traumatic brain injury; Z11.52 Encounter for screening for COVID-19; Z92.3 Personal history of irradiation
CPT/HCPCS: 36600; 70450; 71045; 71275; 76700; 80048; 80053; 80076; 80164; 80202; 81003; 81015; 82140; 82248; 82306; 82330; 82550; 82805; 82962; 83036; 83519; 83605; 83735; 83880; 83970; 84100; 84145; 84443; 84484; 85025; 85610; 85730; 87040; 87045; 87046; 87077; 87086; 87186; 87324; 87427; 87449; 87502; 87641; 87811; 87899; 92526; 92610; 93005; 93307; 94640; 94660; 95816; 96374; 97163; 97167; 97530; 99291; Q9950; Q9967